=== PATIENT | male | born 1970 | race Caucasian/White ===

== ENCOUNTER 2017-03-19 15:07 | Inpatient (IN) ==
[~2017-03-19 15:07] MED LIST: Adenosine 90 MG/30 ML MLS IV ONE
[2017-03-19] MEDS ORDERED: *HR* Atropine Sulfate 1 MG/10 ML SYRINGE ONE (15:26)
[2017-03-19] MEDS ORDERED: Ondansetron 4 MG/2 ML VIAL IVP ONE (15:38)
[2017-03-19] MEDS ORDERED: 0.9 % Sodium Chloride 1,000 ML IVC ONE (15:40)
[2017-03-19] MEDS ORDERED: *HR* LORazepam 2 MG/ML VIAL ONE (15:42)
[2017-03-19] MEDS ORDERED: Albuterol 2.5 MG/3 ML NEBULIZER IH ONE (15:44)
[2017-03-19] MEDS ORDERED: *HR* Morphine 2 MG/ML SYRINGE ONE (15:45)
[2017-03-19] MEDS ORDERED: *HR* Morphine 10 MG/ML VIAL ONE (15:47)
[2017-03-19 16:02] LABS: Basophils % 0.4 %; Eosinophils % 0.3 %; Hematocrit 40.3 % (37.5-50.1); Hemoglobin 13.9 g/dL (12.9-16.9); Immature Granulocytes % 0.3 % (0-4); Lymphocytes # 1.8 K/mcL (0.6-4.6); Lymphocytes % 15.9 %; Mean Corpuscular HGB Conc 34.5 g/dL (31.6-35.5); Mean Corpuscular Hemoglobin 32.3 pg (28.0-33.3); Mean Corpuscular Volume 93.5 fL (83.0-100.0); Monocytes # 0.7 K/mcL (0.0-1.3); Monocytes % 6.2 %; Neutrophils # 8.6 K/mcL (1.6-8.9); Platelet Count 181 K/mcL (140-400); Red Blood Count 4.31 M/mcL (4.19-5.50); Red Cell Distribution Width 13.2 % (11.5-14.5); Segmented Neutrophils % 76.9 %
[2017-03-19 16:07] LABS: INR 1.1; Prothrombin Time 11.8 Seconds (9.4-12.1)
[2017-03-19 16:10] LABS: Activated Partial Thrombo Time 30.3 Seconds (26.0-36.0)
[2017-03-19] MEDS ORDERED: *HR* Atropine Sulfate 1 MG/10 ML SYRINGE IVP ONE ×2 (16:11→17:57)
--- NOTE | 2017-03-19 16:12 | Emergency Department Note ---
Disposition Clinical Impression: Third degree heart block, Symptomatic bradycardia Disposition: Admitted As Inpatient Condition: Critical Referrals: Anthony Armstrong MD [Primary Care Provider] - Time of Disposition: 18:55 General Adult HPI - General Chief complaint: ED Headache Stated complaint: n/v Time Seen by Provider: 03/19/17 15:38 Source: patient Limitations: no limitations Nursing Notes Reviewed: Yes Vital Signs Reviewed: Yes - History of Present Illness HPI Narrative: Mr. Lares, 46-year-old male, presents from home for evaluation of nausea, vomiting, left lower sternal chest pain. He has been retching multiple times since awakening this morning and now has bilateral bloodshot eyes. Patient notes it is hard to focus on anything in particular. No headache. PMH: Hypertension, hyperlipidemia, diabetes, prior MD with stent 1. 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 Pain Scale: 8 - Related Data Home Medications Medication Instructions Recorded Confirmed Aspirin Enteric Coated [Aspirin EC] 81 mg PO DAILY 03/19/17 03/19/17 Carvedilol 12.5 mg PO BID 03/19/17 03/19/17 Cholecalciferol (D-3) [Vitamin D] 1,000 unit PO DAILY 03/19/17 03/19/17 Isosorbide MONOnitrate (24 HR) 30 mg PO DAILY 03/19/17 03/19/17 [Imdur] Lisinopril [Zestril] 10 mg PO DAILY 03/19/17 03/19/17 Multivitamin [One Daily Essential] 1 each PO DAILY 03/19/17 03/19/17 Omeprazole [PriLOSEC] 20 mg PO BID 03/19/17 03/19/17 Rosuvastatin Calcium [Rosuvastatin 10 mg PO HS 03/19/17 03/19/17 Calcium] Sertraline [Zoloft] 50 mg PO DAILY 03/19/17 03/19/17 Sitagliptin Phos/Metformin HCl 1 tab PO DAILY 03/19/17 03/19/17 [Janumet Xr 100-1,000 mg Tablet] Allergies Allergy/AdvReac Type Severity Reaction Status Date / Time No Known Allergies Allergy Verified 03/19/17 15:20 All systems ED: reviewed and negative except as stated. Review of Systems: As Per HPI Past Medical History - Past Medical History Medical history: Reports: diabetes, myocardial infarction Psychiatric history: Reports: no psych history - Social History Smoking Status: Never smoker Smokeless Tobacco Status: No Alcohol use: Reports: none Drug use: Reports: none Physical Exam Vital Signs Reviewed General: Patient is alert, oriented, and in acute distress-he is having chest pain, his retching HEENT: No facial asymmetry. Head is normocephalic and atraumatic. Oral mucosa moist. Trachea midline. Bilateral scleral hemorrhage. Cardiovascular: Heart rate heart rate and regular rhythm without clicks, rubs, gallops, or murmurs. No JVD. PMI nondisplaced. Bilateral radial pulses 2/4 equal. Respiratory: Symmetric chest rise with good respiratory effort. Bilateral breath sounds are clear without wheezing, crackles, or rhonchi. Abdomen: Bowel sounds present normoactive x-4 quadrants. Abdomen is soft, nondistended, and nontender. Musculoskeletal: Spontaneously moving all extremities. Neuro: She has 15. Alert and oriented 4. Skin: Cool, moist, intact. Psych: Patient's affect is appropriate for situation. - General Limitations: no limitations General appearance: alert, in no apparent distress Course Course Narrative: Patient's nausea and vomiting with bilateral scleral hemorrhage initially concerning for possible subarachnoid hemorrhage. We will CT brain with and without. Patient presents with hypertension and symptomatic bradycardia. He was given half milligram of atropine with no improvement. His QRS on repeat EKGs was slowly widening. Initial suspicion prior to labwork of potential hyperkalemia. He was given 1 amp of bicarbonate, calcium gluconate, albuterol inhaler. Patient's rhythm remained in the low 30s. He was placed on transcutaneous pacing. After approximately 10 minutes, transcutaneous pacing removed the patient maintained in the mid 30s. Vital Signs Temperature 97.6 F 03/19/17 15:10 Pulse Rate 32 03/19/17 15:10 Respiratory Rate 18 03/19/17 15:10 Blood Pressure 186/50 03/19/17 15:10 O2 Sat by Pulse Oximetry 98 03/19/17 15:10 Temperature 97.6 F 03/19/17 15:10 Pulse Rate 50 03/19/17 18:49 Respiratory Rate 11 03/19/17 18:49 Blood Pressure 116/49 03/19/17 18:49 O2 Sat by Pulse Oximetry 97 03/19/17 18:49 Oxygen Delivery Oxygen Delivery Nasal Cannula Medical Decision Making - Lab Data Lab results reviewed: Yes I reviewed the patient's lab results. Result diagrams: 03/19/17 15:55 03/19/17 15:55 Lab Results 03/19/17 03/19/17 03/19/17 Range/Units 15:40 15:55 15:55 WBC 11.2 H (4.3-11.1) K/mcL RBC 4.31 (4.19-5.50) M/mcL Hgb 13.9 (12.9-16.9) g/dL Hct 40.3 (37.5-50.1) % MCV 93.5 (83.0-100.0) fL MCH 32.3 (28.0-33.3) pg MCHC 34.5 (31.6-35.5) g/dL RDW 13.2 (11.5-14.5) % Plt Count 181 (140-400) K/mcL MPV 11.0 (9.4-12.4) fL Immature Gran % 0.3 (0-4) % Seg Neutrophils % 76.9 % Lymphocytes % 15.9 % Monocytes % 6.2 % Eosinophils % 0.3 % Basophils % 0.4 % Neutrophils # 8.6 (1.6-8.9) K/mcL Lymphocytes # 1.8 (0.6-4.6) K/mcL Monocytes # 0.7 (0.0-1.3) K/mcL Eosinophils # 0.0 (0.0-0.6) K/mcL Basophils # 0.0 (0.0-0.2) K/mcL PT 11.8 (9.4-12.1) Seconds INR 1.1 APTT 30.3 (26.0-36.0) Seconds D-Dimer 628 H (0-500) ng/mLFEU Sodium (136-145) mEq/L Potassium (3.5-4.5) mEq/L Chloride (98-109) mEq/L Carbon Dioxide (19-29) mEq/L BUN (8-26) mg/dL Creatinine (0.72-1.25) mg/dL Est GFR ( Amer) (> 60) Est GFR (Non-Af Amer) (> 60) BUN/Creatinine Ratio (6-26) Glucose (70-99) mg/dL POC Glucose 123 H (58-89) Calculated Osmolality (280-300) Calcium (8.6-10.8) mg/dL Magnesium (1.6-2.6) mg/dL Troponin I (0-0.03) ng/mL 03/19/17 03/19/17 Range/Units 15:55 15:55 WBC (4.3-11.1) K/mcL RBC (4.19-5.50) M/mcL Hgb (12.9-16.9) g/dL Hct (37.5-50.1) % MCV (83.0-100.0) fL MCH (28.0-33.3) pg MCHC (31.6-35.5) g/dL RDW (11.5-14.5) % Plt Count (140-400) K/mcL MPV (9.4-12.4) fL Immature Gran % (0-4) % Seg Neutrophils % % Lymphocytes % % Monocytes % % Eosinophils % % Basophils % % Neutrophils # (1.6-8.9) K/mcL Lymphocytes # (0.6-4.6) K/mcL Monocytes # (0.0-1.3) K/mcL Eosinophils # (0.0-0.6) K/mcL Basophils # (0.0-0.2) K/mcL PT (9.4-12.1) Seconds INR APTT (26.0-36.0) Seconds D-Dimer (0-500) ng/mLFEU Sodium 134 L (136-145) mEq/L Potassium 4.3 (3.5-4.5) mEq/L Chloride 105 (98-109) mEq/L Carbon Dioxide 24 (19-29) mEq/L BUN 26 (8-26) mg/dL Creatinine 1.32 H (0.72-1.25) mg/dL Est GFR ( Amer) > 60 (> 60) Est GFR (Non-Af Amer) 58 L (> 60) BUN/Creatinine Ratio 20 (6-26) Glucose 140 H (70-99) mg/dL POC Glucose (58-89) Calculated Osmolality 285 (280-300) Calcium 11.2 H (8.6-10.8) mg/dL Magnesium 1.9 (1.6-2.6) mg/dL Troponin I 0.11 H* (0-0.03) ng/mL - EKG Data EKG #1 EKG attestation: Yes I reviewed and interpreted this EKG. EKG results narrative: EKG dated 19 March 2017 at 15:20 shows sinus bradycardia with a rate of 32. Prolonged SC interval. QRS 136. QT/QTC 545/420. T-wave inversion in leads V1 , V2, V4, V5 new from comparison EKG dated 05/15/2009. EKG #2 EKG attestation: Yes I reviewed and interpreted this EKG. EKG results narrative: EKG dated 19 March 2017 at 15:36 interpreted as sinus bradycardia with first- degree AV block. Rate of 37. SC interval 247. QRS 141, QT/QTC 5:30/447. QTc is longer than initial EKG 16 minutes prior. EKG #3 EKG attestation: Yes I reviewed and interpreted this EKG. EKG results narrative: EKG dated 19 March 2017 at 16:04 interpreted as sinus bradycardia with rate of 33. Left bundle-branch block now apparent which was present on comparison EKG dated 05/15/2009. QRS 145, QT/QTC 541/432. QTC is improving from EKG 28 minutes prior.
[2017-03-19 16:14] LABS: BUN/Creatinine Ratio 20 (6-26); Blood Urea Nitrogen 26 mg/dL (8-26); Calcium 11.2 mg/dL (8.6-10.8); Carbon Dioxide 24 mEq/L (19-29); Chloride 105 mEq/L (98-109); Glucose 140 mg/dL (70-99); Magnesium 1.9 mg/dL (1.6-2.6); Osmolality,Calculated 285 (280-300); Potassium 4.3 mEq/L (3.5-4.5); Sodium 134 mEq/L (136-145); eGFR For African Americans > 60 (> 60); eGFR For Non-African Americans 58 (> 60)
[2017-03-19] MEDS ORDERED: FentaNYL (PF) 1,000 MCG in 0.9 % Sodium Chloride 80 ML IVC SCH (16:15)
[2017-03-19] MEDS ORDERED: 0.9 % Sodium Chloride 1,000 ML ONE ×3 (16:20→19:20)
--- NOTE | 2017-03-19 16:33 | Emergency Department Note ---
START Narrative - START START: I examined this patient and my medical decision-making was reviewed with the Resident Physician. I agree with the documented findings, disposition and treatment plan as described except to the extent set forth below. 46 year odl male presents to the ED with complaints of lightheadedness and states that today he had a intense episode of retching and vomitting and thus resulted in an epsideo where he had a syncopal episode and wokeup with scleral hemmorhages and a headache behind his eyes and occiput area in addition to increased midsternal chest pressure and has a history of elevated blood pressure tday that was >200 systlolc today but it has normalized. Valerie denies neck pain or fevers today. He appears diaphoretic and initial EKG he is bradycardiac to the 30s and it appears he has a QT prolongation secondary to his history as a diabetic and te QT prolongation possibly hyperK we will do calcium chloride therapy. Valerie began to vomit profusely, and he had a HR of 21, I have decided to trancutanously pace patient at that time and gave him a total of 1g atropine. Patient was sedated with aitvan and morphone ininally. He was paced at 50bpm. Valerie has relaxed and does not appear patrick cute distress currently, we will turn off trans cutanous pacing and he is currenlty 33 bpm. WE will continue workup for hypertensive emergency with CTA chest, head. He currently also has a troponin of .11. We will consult [facility] cardiology and admit to medicine today.
[2017-03-19] MEDS ORDERED: *HR* Midazolam HCl 2 MG/2 ML VIAL ONE (16:39)
[2017-03-19] MEDS ORDERED: *HR* Heparin 10,000 UNIT/10 ML VIAL ONE (19:20)
[2017-03-19] MEDS ORDERED: *HR* Midazolam HCl 5 MG/5 ML VIAL IVP ONE (19:27)
[2017-03-19] MEDS ORDERED: *HR* FentaNYL (PF) 250 MCG/5 ML VIAL ONE (19:28)
[2017-03-19] MEDS ORDERED: *HR* Bivalirudin 250 MG VIAL IVC ONE (20:11)
[2017-03-19] MEDS ORDERED: Nitroglycerin 0.4 MG TAB.SUBL SL PRN (21:01)
[2017-03-19] MEDS ORDERED: Ondansetron 4 MG/2 ML VIAL IVP PRN (21:01)
--- NOTE | 2017-03-19 21:06 | Invasive Diagnostic Lab Proc ---
Name: Milan Lares Date of Study: 03/19/2017 Date: 1970 Ht: 68.1in Medical Record#: [id number] Age: 46 Wt: 209.44lb Gender: Male BSA: 2.09 Order #: [id number] BMI: 31.74 Physicians Procedure Physician: Bhavna De Jesus MD, [facility] Referring MD: Anthony Armstrong MD Referring MD: Staff Name Position Time In Bev Scott RT (R) Scrub 07:35 PM Saud Mart RN Traffic Control Technician 07:38 PM Yudy Almonte RN Monitor 07:38 PM Indications Indication Symptomatic bradycardia Non-Stemi CHB Procedures Performed Procedure INS/RPL TEMP PM LEAD/CATH;SNGL L HRT ARTERY/VENTRICLE ANGIO Pre-Procedure Checklist Informed consent is complete signed and on chart. H&P is on chart. ID band is on and ID verified with patient. Pt not NPO for procedure and MD aware. The procedure was described for the patient and questions were answered. Blood Pressure: 135/52 ECG is on chart. Rhythm: temp V paced Plan of Care Patient will tolerate the procedure without complications. Adequate level of comfort will be maintained. Hemodynamics will remain stable Patient will recover from procedure without complications. Respiratory function will be maintained. Cardiac rhythm will remain stable. Patient temperature will be maintained. Patient and/or family have verbalized understanding of the procedure. Patient Education Intravenous Access Time IV Size Location DC'd Fluid/Drip Rate Units RN 07:18 PM 18g 1 1/4" Patent On Arrival Rt Antecubital 0.9NaCl 25 ml/hr Saud Mart RN Allergies NO KNOWN DRUG ALLERGIES Vital Signs Time BP (mmHg) HR (bpm) O2 Sat. RR (bpm) LOC 07:18 PM 135 / 52 50 97 % 18 5 = Fully awake and oriented or at pre-proc level 07:40 PM / % 5 = Fully awake and oriented or at pre-proc level 07:40 PM / % 5 = Fully awake and oriented or at pre-proc level 07:56 PM / % 5 = Fully awake and oriented or at pre-proc level 08:12 PM / % 5 = Fully awake and oriented or at pre-proc level 07:39 PM 99 / 80 80 90 % 20 07:40 PM 150 / 64 30 91 % 20 07:44 PM 128 / 71 80 98 % 17 07:49 PM 138 / 63 79 98 % 19 07:54 PM 129 / 62 80 99 % 13 07:59 PM 112 / 57 79 98 % 22 08:04 PM 117 / 51 96 96 % 18 08:09 PM 109 / 51 80 97 % 15 08:14 PM 106 / 54 79 96 % 17 08:15 PM 103 / 45 80 94 % 14 07:34 PM 160 / 94 % 08:19 PM 106 / 51 80 96 % 20 08:22 PM 111 / 49 81 96 % 18 08:23 PM 91 / 44 81 97 % 18 08:25 PM 95 / 46 80 98 % 20 08:29 PM 106 / 50 80 93 % 21 08:34 PM 111 / 52 80 94 % 20 Procedural Medications Time Medication Dose Units Method Given By 07:38 PM Oxygen 6 L/min nasal cannula Saud Mart RN 07:38 PM Lidocaine 2% 14 ml Subcutaneous Bhavna De Jesus MD, FACC 07:56 PM Lidocaine 2% 16 ml Subcutaneous Bhavna De Jesus MD, FACC 08:00 PM Oxygen 4 L/min nasal cannula Saud Mart RN 08:13 PM Angiomax 0.75mg/kg bolus: 14 ml Intravenous Saud Mart RN 08:14 PM Angiomax 1.75mg/kg/hr: 33 ml Intravenous Saud Mart RN 08:19 PM Adenosine 150 mcg/kg/min Intravenous Saud Mart RN 08:23 PM Angiomax 0.75mg/kg bolus: 0 ml Intravenous Saud Mart RN 07:36 PM Versed 1 mg Intravenous Saud Mart RN 07:36 PM Fentanyl 25 mcg Intravenous Saud Mart RN ASA Classification: CLASS III- Severe systemic disease (i.e. prior AMI, diabetes with vascular complications, morbid obesity) Emergent Procedure: ASA score is assumed Madison Score Preprocedure Postprocedure Activity 2- Moves 4 extremities sustained head lift Activity 2- Moves 4 extremities sustained head lift Circulation 2- SBP +/= 20 points of pre-anesthetic level Circulation 2- SBP +/= 20 points of pre-anesthetic level Consciousness 2- Awake and alert oriented x 3 Consciousness 2- Awake and alert oriented x 3 O2 Saturation 1- Needs O2 inhalation to maintain O2 saturation of 90% O2 Saturation 2- Able to maintain O2 satruation of 92% on room air Respiratory 2- Able to deep breathe and cough well Respiratory 2- Able to deep breathe and cough well Total Score 9 Total Score 10 Contrast Agent: Isovue Diagnostic Contrast: 107 ml Total Contrast: 107 ml Fluoro Dose: 412 mGy Procedure Log Time Note Enter By 07:23 PM CathStat 07:33 PM Case Start 07:33 PM Vitals capture started with the following parameters, Patient=Adult, Interval=5 min, Initial Epfffhqt=560 mmHg, Deflation Rate=5 mmHg, Cuff placed on Right Arm 07:34 PM ZDTQ=180/94 mmhg, Comment=Vpaced 07:35 PM Pt arrived to slabber 2 at 19:35 csmith 07:35 PM Bev Scott (R) Position: Scrub Time in: 19:35 csmith 07:35 PM Patient charges- Angio tray pack, Navilyst 3mm J, Pulse Oximetry and ACIST tubing and transducer csmith 07:36 PM Time: 19:36 Versedl 1 mg Intravenous Given by Saud Mart RN csmith 07:36 PM Time: 19:36 Fentanyl 25 mcg Intravenous Given by Saud Mart RN csmith 07:37 PM Hair removed from procedure site in procedure lab using clippers. Bilateral groin prepped with Chloraprep by Bev Scott RT (R), safety strap applied then patient was draped. Skin intact. csmith 07:38 PM Case Delayed No csmith 07:38 PM Saud Mart RN Position: Traffic Control Technician Time in: 19:38 csmith 07:38 PM Yudy Almonte RN Position: Monitor Time in: 19:38 csmith 07:38 PM ASA Class CLASS III- Severe systemic disease (i.e. prior AMI, diabetes with vascular complications, morbid obesity) csmith 07:38 PM Meet and greet completed csmith 07:38 PM Sign in performed according to hospital policy. csmith 07:38 PM Procedure start 19:38 csmith 07:38 PM Time: 19:38 Oxygen on at 6 L/min per nasal cannula by Saud Mart RN csmith 07:38 PM Time out performed according to hospital policy csmith 07:38 PM Time: 19:38 14 ml Lidocaine 2% to right groin Subcutaneous Given by Bhavna De Jesus MD, [facility] csmith 07:39 PM HR=80 bpm, NIBP=99/80 mmhg, SpO2=90.0 %, Resp=20 B/min, Comment=Vpaced 07:39 PM NIBP STAT measurement started. 07:40 PM Time: 19:40 Patient comfortable and pain free: Yes csmith 07:40 PM Time: 19:40LOC: 5 = Fully awake and oriented or at pre-proc level csmith 07:40 PM HR=30 bpm, XXHZ=799/64 mmhg, SpO2=91.0 %, Resp=28 B/min, Comment=Vpaced 07:41 PM Access obtained by percutaneous puncture. 6Fr 11cm Cordis Goldie sheath placed in right Femoral vein. [id number] csmith 07:42 PM PstProc: Temp pacer on. csmith 07:42 PM PstProc:Bard Bipolar Pacing Catheter Temp pacer inserted into right femoral vein csmith 07:43 PM Recorded Pressure: Ao, HR=80, Condition=Condition 1 (Aorta) Ao -49/-49/-49 07:43 PM thresholds being checked csmith 07:44 PM HR=80 bpm, UUNY=182/71 mmhg, SpO2=98.0 %, Resp=17 B/min, Comment=Vpaced 07:44 PM PstProc: Temp pacer turned on, rate 80 ppm, mA 4, sensitivity 2 csmith 07:44 PM PstProc: Sheath(s) sutured in due to Temporary Pacer. csmith 07:49 PM HR=79 bpm, KUOS=611/63 mmhg, SpO2=98.0 %, Resp=19 B/min, Comment=Vpaced 07:54 PM HR=80 bpm, ASSX=637/62 mmhg, SpO2=99.0 %, Resp=13 B/min, Comment=Vpaced 07:56 PM Time: 19:40LOC: 5 = Fully awake and oriented or at pre-proc level csmith 07:56 PM Time: 19:40 Patient comfortable and pain free: Yes csmith 07:56 PM Time: 19:56 16 ml Lidocaine 2% to right groin Subcutaneous Given by Bhavna De Jesus MD, [facility] csmith 07:57 PM Access obtained by percutaneous puncture. 5Fr 10cm Terumo Borden sheath placed in right Femoral artery. [id number] csmith 07:57 PM 5Fr FL 4 catheter inserted over the wire [facility] csmith 07:58 PM Pressure channel 1 zeroed. 07:59 PM HR=79 bpm, OEED=866/57 mmhg, SpO2=98.0 %, Resp=22 B/min, Comment=Vpaced 07:59 PM Recorded Pressure: Ao, HR=80, Condition=Condition 1 (Aorta) Ao 84/53/65 07:59 PM LCA angiography performed in multiple views. csmith 08:00 PM Time: 20:00 Oxygen on at 4 L/min per nasal cannula by Saud Mart RN csmith 08:01 PM [facility] PM [facility] FR [facility] RCA angiography performed in [place]. csmith 08:03 PM Catheter removed [facility] 08:03 PM Coronary Dominance: Left [facility] 08[facility] PM 5Fr Pigtail catheter [facility] the [facility] PM Catheter selectively placed in left ventricle csmith 08:03 PM Bolus angiogram of left Ventricle complete: 8 ml/sec for a total of 24 mls [facility] 08[facility] PM Pressure channel 1 zeroed. 08:04 PM Recorded Pressure: LV, HR=86, Condition=Condition 1 (Left Ventricle) LV 84/14/24 08:04 PM Recorded Pressure: LV, HR=82, Condition=Condition 1 (Left Ventricle) LV 85/12/15 08:04 PM HR=96 bpm, RZCO=998/51 mmhg, SpO2=96.0 %, Resp=18 B/min, Comment=Vpaced 08:04 PM Recorded Pressure: LV, Ao, HR=80, Condition=Condition 1 (Left Ventricle) LV 93/26/34, (Aorta) Ao 86/51/68 08:04 PM Catheter removed csmith 08:09 PM HR=80 bpm, LZBN=876/51 mmhg, SpO2=97.0 %, Resp=15 B/min, Comment=Vpaced 08:12 PM Time: 19:56 Patient comfortable and pain free: Yes [facility] 08:12 PM Time: 19:56LOC: 5 = Fully awake and oriented or at pre-proc level csmith 08:13 PM Sheath exchanged for a 6 Fr 11 cm Cordis Goldie sheath [id number] [facility] 08[facility]13 PM 6Fr XB LAD 3.5 [place] Bright-Tip guide catheter was used to cannulate the PCI vessel successfully. reused? No [facility] 08:14 PM Time: 20:13 Angiomax 0.75mg/kg bolus: 14 ml Intravenous Given by Saud Mart RN Hall pump csmith 08:14 PM Time: 20:14 Angiomax 1.75mg/kg/hr: 33 ml Intravenous Given by Saud Mart RN Hall pump csmith 08:14 PM HR=79 bpm, XNEV=886/54 mmhg, SpO2=96.0 %, Resp=17 B/min, Comment=Vpaced 08:14 PM Recorded Pressure: Ao, HR=71, Condition=Condition 1 (Aorta) Ao 74/41/55 08:14 PM NIBP STAT measurement started. 08:15 PM .014 Prowater 180cm guide wire across target lesion- successful. reused? No csmith 08:15 PM HR=80 bpm, EWFS=796/45 mmhg, SpO2=94.0 %, Resp=14 B/min, Comment=Vpaced 08:17 PM Acist Navvus FFR wire advanced to target lesion. csmith 08:19 PM HR=80 bpm, ZVBN=277/51 mmhg, SpO2=96.0 %, Resp=33 B/min, Comment=Vpaced 08:20 PM Time: 20:20 Adenosine 150 mcg/kg/min Intravenous Given by Saud Mart RN Hall pump csmith 08:21 PM NIBP STAT measurement started. 08:22 PM HR=81 bpm, AVVR=030/49 mmhg, SpO2=96.0 %, Resp=18 B/min, Comment=Vpaced 08:22 PM NIBP STAT measurement started. 08:23 PM HR=81 bpm, NIBP=91/44 mmhg, SpO2=97 %, Resp=18 B/min 08:23 PM Time: 20:23 Angiomax 0.75mg/kg bolus: off ml Intravenous Given by Saud Mart RN Hall pump csmith 08:23 PM Flow Wire removed intact csmith 08:24 PM FFR Measurement: 0.82 csmith 08:24 PM Guide wire removed intact. csmith 08:24 PM Guide catheter removed intact. csmith 08:24 PM Bolus angiogram of right Femoral complete: 2 ml/sec for a total of 4 mls csmith 08:25 PM Procedure completed at 20:25 csmith 08:25 PM HR=80 bpm, NIBP=95/46 mmhg, SpO2=98 %, Resp=25 B/min 08:26 PM Sign out completed: Radiation Dose 411.84 mGy Fluoro Time: 4.7 Isovue 370 - 200ml contrast 107 ml given by Bhavna De Jesus MD, [facility]. Complications: NoneCardiac Rehab Consult needed: NoConfirmed administered medications: Yes csmith 08:26 PM Isovue 370 - 200ml,1 Bottle(s) used. csmith 08:26 PM Arterial sheath pulled, Mynx closure device used and was Successful S/N. csmith 08:27 PM Estimated Blood Loss: minimal csmith 08:27 PM Time: 20:12LOC: 5 = Fully awake and oriented or at pre-proc level csmith 08:27 PM Time: 20:12 Patient comfortable and pain free: Yes csmith 08:27 PM Post ECG Paced csmith 08:27 PM Post Blood Pressure 95/46 csmith 08:27 PM 20:27 Post Pulses Bilateral DP & PT 2+ csmith 08:27 PM Information taught Cardiac Cath and Temporary pacemaker csmith 08:29 PM HR=80 bpm, GAFJ=814/50 mmhg, SpO2=93 %, Resp=21 B/min 08:33 PM Education needs Plan of Care, Disease Process, and Responsibilities of Patient in Care csmith 08:34 PM Learning barriers :None csmith 08:34 PM Education Methods Verbal csmith 08:34 PM Education evaluation Able to repeat information csmith 08:34 PM Site status No bleeding/hematoma - Rt Groin as reported by Bev Scott RT (R) at 20:34 csmith 08:34 PM Opsite applied csmith 08:34 PM HR=80 bpm, QGPH=407/52 mmhg, SpO2=94 %, Resp=20 B/min 08:34 PM Plavix, Effient or Brilinta given No csmith 08:35 PM Lesion found in Proximal LAD. Pre Stenosis: 50 csmith 08:35 PM Lesion found in Proximal RCA. Pre Stenosis: 25 csmith 08:36 PM Lesion found in Proximal Circumflex. Pre Stenosis: 20 csmith 08:36 PM Lesion found in Distal Circumflex. Pre Stenosis: 25 csmith 08:36 PM Proximal Left Anterior Descending Coronary Artery with 50% stenosis. csmith 08:37 PM Lesion found in Ramus. Pre Stenosis: 60 csmith 08:37 PM Mid/Distal Left Anterior Descending Coronary Artery and diagonal branches with 25% stenosis. csmith 08:38 PM Right Coronary, Right Posterior Descending Arteries with Right Posterolateral and Acute Marginal branches with 25 % stenosis. csmith 08:38 PM Ramus with 60% stenosis. csmith 08:40 PM Leach catheter 16Fr was inserted using sterile technique per Florence Cowan RN ejohnson 08:54 PM Report given to Wally GUZMAN Pt taken to E Room #4. 20:50 ejohnson 08:54 PM Delay to floor No ejohnson 08:55 PM Patient out of room: 20:54 ejohnson 08:55 PM Complications: None ejohnson Complications Complication None Hemodynamics Pressures Site Systolic/A Wave Diastolic/V Wave Mean AO -49 -49 -49 AO 84 53 65 LV 84 14 24 LV 85 12 15 LV 93 26 34 AO 86 51 68 AO 74 41 55 Post Procedure Information Blood Pressure: 95/46 mmHg Rhythm: Paced Post procedural instructions were given Closure Device Time Device Success/Fail 03/19/2017 8:27:00 PM MynxGrip Successful Site Checks Time Location Status Staff Sheath In? Note 08:34 PM Rt Groin No bleeding/hematoma Bev Scott RT (R) Pulses Time Site Pre-Procedure Post-Procedure Note 8:27:00 PM Bilateral DP & PT 2+ 03/19/2017 7:35:00 PM Bilateral DP & PT 2+ Updated by Yudy Almonte RN on 03/19/2017 8:59:30 PM Yudy Almonte RN electronically signed on 03/19/2017 9:00:29 PM with status of Final
[2017-03-19] MEDS ORDERED: *HR* Dextrose 50 % in Water (Syg) 50 ML SYRINGE IVP PRN (21:09)
[2017-03-19] MEDS ORDERED: Dextrose Gel 15 GM PO PRN ×2 (21:09)
[2017-03-19] MEDS ORDERED: D5% in Water 1,000 ML IVC PRN (21:09)
[2017-03-19] MEDS ORDERED: 0.9 % Sodium Chloride 1,000 ML IVC SCH (21:15)
--- NOTE | 2017-03-19 21:22 | Cardiology History & Physical ---
Date of Encounter: 03/19/17 Time of Encounter: 19:30 Assessment and Plan (1) Complete heart block Current Visit: Yes Status: Acute Pt is in complete heart block currently being transcutaneously paced. Will proceed with emergent temp pacer as well as probable LHC to evaluate for etiology of symptoms of n/v, complete heart block. Further recommendations pending results. Likely will need BiV pacemaker +/- ICD pending echo for EF evaluation. The assessment and plan as outlined above was discussed with the patient and/or family members who expressed understanding and agreement. All questions were answered. (2) Coronary artery disease Current Visit: Yes Status: Acute Slight troponin elevation which may be due to markedly elevated BP as well as CHB. Will likely proceed with LHC after stabilizing with temp pacer. The assessment and plan as outlined above was discussed with the patient and/or family members who expressed understanding and agreement. All questions were answered. Qualifiers: Coronary Disease-Associated Artery/Lesion type: [place] artery [place] vs. transplanted heart: [place] heart Associated angina: with unspecified angina Qualified Code(s): I25.119 - Atherosclerotic heart disease of [place] coronary artery with unspecified angina pectoris (3) History of coronary artery stent placement Current Visit: No Status: Chronic The assessment and plan as outlined above was discussed with the patient and/or family members who expressed understanding and agreement. All questions were answered. (4) Diabetes mellitus Current Visit: No Status: Chronic The assessment and plan as outlined above was discussed with the patient and/or family members who expressed understanding and agreement. All questions were answered. Qualifiers: Diabetes mellitus type: type 2 Diabetes mellitus complication status: with unspecified complications Diabetes mellitus adjunct faculty for medical terminology insulin use: without adjunct faculty for medical terminology use Qualified Code(s): E11.8 - Type 2 diabetes mellitus with unspecified complications (5) Hypertension Current Visit: Yes Status: Chronic The assessment and plan as outlined above was discussed with the patient and/or family members who expressed understanding and agreement. All questions were answered. Qualifiers: Hypertension type: essential hypertension Qualified Code(s): I10 - Essential (primary) hypertension History of Present Illness Chief complaint: n/v HPI: Mr. Lares is a 46 year old male with hx of CAD s/p PCI, DM, HTN presents to [facility] ED for evaluation of n/v, headache. Pt unable to provide history due to current clinical status. History obtained from as well as prior records. Per , pt had some mild GRACE yesterday when climbing stairs from basement, but otherwise felt well. This AM, per , when pt awoke, felt nauseated, flushed, general malaise. She left house for a few hours to go to a [employer] activity. When she returned, pt c/o severe n/v, headache. Had scleral hemorrhages. No syncope. Pt taken to [facility] ED for further evaluation. Upon arrival, pt's EKG demonstrated complete heart block with HR in 30s. Was given atropine without improvement. Pt transcutaneously paced. Head CT negative. CTA chest negative for PE. Pt has known history of CAD. Had RI in 2008 with PCI of LAD at [facility]. Per , had ischemic CMP at that time and ICD was discussed with patient. EF improved, however, and no need for ICD. No records available for my review. Most recent echocardiogram in 2016 with normal EF 55%, no significant valvular heart disease. Past Med Surg Social Fam HX - Past Medical History Medical history: coronary artery disease, diabetes, hyperlipidemia, hypertension , myocardial infarction Psychiatric history: no psych history - Past Surgical History Surgical History: angioplasty/stent - Social History Smoking Status: Never smoker Smokeless Tobacco Status: No Alcohol use: none Drug use: none Medications and Allergies Aspirin Enteric Coated [Aspirin EC] 81 mg PO DAILY 03/19/17 [History] Carvedilol 12.5 mg PO BID 03/19/17 [History] Cholecalciferol (D-3) [Vitamin D] 1,000 unit PO DAILY 03/19/17 [History] Isosorbide MONOnitrate (24 HR) [Imdur] 30 mg PO DAILY 03/19/17 [History] Lisinopril [Zestril] 10 mg PO DAILY 03/19/17 [History] Multivitamin [One Daily Essential] 1 each PO DAILY 03/19/17 [History] Omeprazole [PriLOSEC] 20 mg PO BID 03/19/17 [History] Rosuvastatin Calcium [Rosuvastatin Calcium] 10 mg PO HS 03/19/17 [History] Sertraline [Zoloft] 50 mg PO DAILY 03/19/17 [History] Sitagliptin Phos/Metformin HCl [Janumet Xr 100-1,000 mg Tablet] 1 tab PO DAILY 03/19/17 [History] 3 Allergy/AdvReac Type Severity Reaction Status Date / Time No Known Allergies Allergy Verified 03/19/17 15:20 ROS unobtainable: other (currently sedated) All Systems Review: A 10-system review of systems was performed and is negative for pertinent findings except as documented above in the HPI. Physical Examination General: Other (moderately severe distress, nauseated, drowsy, currently being transcutaneously paced) HEENT: Atraumatic, Normocephaly, Mucus Membranes Moist, Other (b/l scleral hemorrhages) Neck: No JVD, Normal carotid pulses Cardiac: Normal S1 and S2, No Murmur, Other (bradycardic) Lungs: Normal Breath Sounds, No Wheeze, Rales, Rhonchi Neuro: Other (sedated, drowsy, falls asleep when trying to answer questions) Abdomen: Soft, Non-Tender Skin: No rashes noted on visualized skin Musculoskeletal: No Chest Wall Tenderness Extremities: No Clubbing, No Cyanosis, No Edema, Normal Pulses Results 03/19/17 15:55 03/19/17 15:55 - EKG Interpretation EKG results cardiology: personally reviewed (complete heart block with ventricular escape rate of 37bpm)
[2017-03-20 04:26] LABS: Basophils % 0.3 %; Eosinophils # 0.1 K/mcL (0.0-0.6); Eosinophils % 0.6 %; Hematocrit 36.7 % (37.5-50.1); Immature Granulocytes % 0.3 % (0-4); Lymphocytes # 1.6 K/mcL (0.6-4.6); Lymphocytes % 16.7 %; Mean Corpuscular HGB Conc 33.2 g/dL (31.6-35.5); Mean Corpuscular Volume 96.3 fL (83.0-100.0); Monocytes # 0.6 K/mcL (0.0-1.3); Monocytes % 6.7 %; Neutrophils # 7.2 K/mcL (1.6-8.9); Platelet Count 136 K/mcL (140-400); Red Blood Count 3.81 M/mcL (4.19-5.50); Red Cell Distribution Width 13.8 % (11.5-14.5); Segmented Neutrophils % 75.4 %
[2017-03-20 04:27] LABS: Hemoglobin 12.2 g/dL (12.9-16.9)
[2017-03-20 04:39] LABS: BUN/Creatinine Ratio 17 (6-26); Blood Urea Nitrogen 19 mg/dL (8-26); Carbon Dioxide 19 mEq/L (19-29); Chloride 114 mEq/L (98-109); Chol/HDL Ratio 3.4 (0-4.9); Cholesterol 126 mg/dL (< 200); Glucose 87 mg/dL (70-99); HDL Cholesterol 37 mg/dL (40-59); LDL Cholesterol,Calculated 73 mg/dL (0-99); Osmolality,Calculated 296 (280-300); Potassium 4.6 mEq/L (3.5-4.5); Triglycerides 80 mg/dL (< 150); eGFR For African Americans > 60 (> 60); eGFR For Non-African Americans > 60 (> 60)
[2017-03-20 04:43] LABS: Calcium 8.5 mg/dL (8.6-10.8); Sodium 142 mEq/L (136-145)
[2017-03-20] MEDS ORDERED: Ondansetron 4 MG/2 ML VIAL IVP ONE (08:59)
[2017-03-20] MEDS ORDERED: Aspirin Enteric Coated 81 MG Tablet PO SCH (09:00)
[2017-03-20] MEDS: *HR* Enoxaparin 40 MG/0.4 ML SYRINGE SQ SCH (09:33)
--- NOTE | 2017-03-20 10:19 | Cardiology Progress Note ---
Date of Encounter: 03/20/17 Time of Encounter: 08:00 Assessment and Plan (1) Third degree heart block Current Visit: Yes Status: Acute Presented in CHB. S/p emergent TV pacer. Hold AV diana blockers. LHC showed patent stent. EF normal. TTE pending. Possible PPM tomorrow. Will place EP consult. (2) Coronary artery disease Current Visit: Yes Status: Acute Slight troponin elevation which may be due to markedly elevated BP as well as CHB. LHC showed patent LAD stent. Moderate non-obstructive CAD. S/p PCI in 2008. Continue medical management with asa and statin. No AV diana blockers due to CHB. No indication for cardiac rehab at this time. Qualifiers: Coronary Disease-Associated Artery/Lesion type: [place] artery [place] vs. transplanted heart: [place] heart Associated angina: with unspecified angina Qualified Code(s): I25.119 - Atherosclerotic heart disease of [place] coronary artery with unspecified angina pectoris (3) Diabetes mellitus Current Visit: No Status: Chronic The assessment and plan as outlined above was discussed with the patient and/or family members who expressed understanding and agreement. All questions were answered. Continue home meds. SSI. Qualifiers: Diabetes mellitus type: type 2 Diabetes mellitus complication status: with unspecified complications Diabetes mellitus senior care insulin use: without senior care use Qualified Code(s): E11.8 - Type 2 diabetes mellitus with unspecified complications (4) Hypertension Current Visit: Yes Status: Chronic The assessment and plan as outlined above was discussed with the patient and/or family members who expressed understanding and agreement. All questions were answered. B/p now acceptable despite stopping carvedilol. Avoid AV diana blockers add medication as needed. Qualifiers: Hypertension type: essential hypertension Qualified Code(s): I10 - Essential (primary) hypertension (5) Nausea Current Visit: Yes Status: Acute Continues to have nausea despite paced rhythm and better blood pressure. Liver panel is ok. Normal amylase and lipase. Denies fevers or abdominal pain. Will continue to monitor. Continue zofran. Will consult hospitalist to help manage and for further recs for work-up. Discussion w patient/family: The assessment and plan as outlined above was discussed with the patient and/or family members who expressed understanding and agreement. All questions were answered. Thank you for involving us in the care of your patient. Please call with any questions. Subjective Principal diagnosis: complete heart block, nausea and vomiting. Interval history: Mr. Lares is s/p temporary TV pacer. He is currently paced on telemetry. Patient continues to experience nausea and vomiting of mucous and bile colored vomit. Any movement triggers nausea. Denies abdominal pain. Denies fever. Objective Vital Signs, Last 4 Hours Temp Pulse Resp BP Pulse Ox 03/20/17 09:00 80 20 134/70 94 03/20/17 08:10 80 03/20/17 08:00 80 18 143/62 92 03/20/17 07:58 94 03/20/17 07:26 97.8 F 03/20/17 07:00 80 18 124/62 93 General: Conversant, No Apparent Distress HEENT: Atraumatic, Normocephaly, Mucus Membranes Moist Neck: No JVD, Normal carotid pulses Cardiac: Reg Rate and Rhythm, Normal S1 and S2, No Murmur Lungs: Normal Breath Sounds, No Wheeze, Rales, Rhonchi Neuro: Alert and responsive, No focal deficits noted Abdomen: Soft, Non-Tender Skin: No rashes noted on visualized skin Musculoskeletal: No Chest Wall Tenderness Extremities: No Clubbing, No Cyanosis, No Edema, Normal Pulses, Other (TV pacer intact with clean dry dressing. ) Results 03/20/17 04:10 03/20/17 04:10 Lab Results 03/20/17 03/20/17 03/20/17 04:10 04:10 04:10 WBC 9.6 Hgb 12.2 L D Hct 36.7 L Plt Count 136 L Sodium 142 D Potassium 4.6 H Chloride 114 H Carbon Dioxide 19 BUN 19 Creatinine 1.10 Glucose 87 Calcium 8.5 L D Troponin I 0.26 H* Consult Discharge Plan - Plan Referrals: Anthony Armstrong MD [Primary Care Provider] -
[2017-03-20 10:27] LABS: Amylase 74 Units/L (25-125); Lipase 31 Units/L (8-78)
[2017-03-20 10:28] LABS: Albumin 3.3 g/dL (3.5-5.0); Bilirubin,Direct 0.4 mg/dL (0.0-0.5); Bilirubin,Indirect 0.5 mg/dL (0.0-1.2); Bilirubin,Total 0.9 mg/dL (0.2-1.2); Globulin 3.3 g/dL (2.4-3.5); Total Protein 6.6 g/dL (6.0-8.3)
[2017-03-20] MEDS: Insulin LISPRO 300 UNITS/3 ML VIAL SQ SCH ×3 (11:17→16:17)
[2017-03-20] MEDS: Multivit/Ca/Min/Fe/FA 1 TAB TABLET PO SCH (12:56)
[2017-03-20] MEDS: Cholecalciferol (D-3) 1,000 UNIT TABLET PO SCH (12:56)
--- NOTE | 2017-03-20 13:55 | Internal Medicine Consult Note ---
<Neo Simon - Last Filed: 03/20/17 14:14> Date of Encounter: 03/20/17 Time of Encounter: 13:55 - Assessment and Plan (1) Nausea & vomiting Current Visit: Yes Status: Acute Assessment and plan: The patient continued to have cyclical intractable nausea and vomiting. We recommend Zofran every 4 hours as needed intravenously CT scan abdomen ,chest abdomen with contrast. Qualifiers: Vomiting type: cyclical vomiting Vomiting Intractability: intractable Qualified Code(s): G43.A1 - Cyclical vomiting, intractable Internal Medicine - CN: HPI - Data of Consult Consult date: 03/20/17 Requesting Physician: Bhavna De Jesus - Consult Narrative Reason for consult: Intractable nausea, vomiting History of present illness: Mr. Lares is a 46 year old male Patient was admitted for episode of bradycardia chest pain, headache with some nausea and vomiting. He was seen by cardiology for third degree heart block on EKG with 60% LVEF of Echo. pacer was placed by cardiology . His nausea and vomiting continued for which the hospitalist group was consulted . Patient was seen and examined for intractable nausea and vomiting. Past Med Surg Social Fam HX - Past Medical History Medical history: coronary artery disease, diabetes, hyperlipidemia, hypertension , myocardial infarction Psychiatric history: no psych history - Past Surgical History Surgical History: angioplasty/stent - Social History Smoking Status: Never smoker Smokeless Tobacco Status: No Alcohol use: none Drug use: none - Cardiovascular Cardiovascular ROS IM: irregular heart rhythm, lightheadedness, syncope, no chest pain, no claudication, no diaphoresis, no dyspnea, no edema, no orthopnea , no palpitations, no paroxysmal nocturnal dyspnea - Respiratory Respiratory: excessive phlegm production, no cough, no dyspnea, no dyspnea on exertion, no wheezing, no snoring, no stridor, no pain on inspiration, no chest congestion, no change in phlegm color, no pain with cough - Gastrointestinal Gastrointestinal: belching, constipation, heartburn, nausea, vomiting, no bloating, no change in bowel habits, no change in stool character, no coffee ground emesis, no cramping, no diarrhea, no dyspepsia, no dysphagia, no early satiety, no excessive flatus, no fecal incontinence, no hematemesis, no hematochezia, no loose stools, no melena, no odynophagia, no tenesmus - Genitourinary Genitourinary ROS male: hematuria Internal Medicine - CN: Meds Aspirin Enteric Coated [Aspirin EC] 81 mg PO DAILY 03/19/17 [History] Carvedilol 12.5 mg PO BID 03/19/17 [History] Cholecalciferol (D-3) [Vitamin D] 1,000 unit PO DAILY 03/19/17 [History] Isosorbide MONOnitrate (24 HR) [Imdur] 30 mg PO DAILY 03/19/17 [History] Lisinopril [Zestril] 10 mg PO DAILY 03/19/17 [History] Multivitamin [One Daily Essential] 1 each PO DAILY 03/19/17 [History] Omeprazole [PriLOSEC] 20 mg PO BID 03/19/17 [History] Rosuvastatin Calcium [Rosuvastatin Calcium] 10 mg PO HS 03/19/17 [History] Sertraline [Zoloft] 50 mg PO DAILY 03/19/17 [History] Sitagliptin Phos/Metformin HCl [Janumet Xr 100-1,000 mg Tablet] 1 tab PO DAILY 03/19/17 [History] 3 Allergy/AdvReac Type Severity Reaction Status Date / Time No Known Allergies Allergy Verified 03/19/17 15:20 Internal Medicine - CN: Exam - Constitutional Vitals: Temp Pulse Resp BP Pulse Ox 97.4 F L 80 18 125/60 92 03/20/17 11:00 03/20/17 13:00 03/20/17 13:00 03/20/17 13:00 03/20/17 13:00 General appearance IM: Present: A&O X 3 - Head Head exam: Present: atraumatic - Eye Eye exam: Present: conjuntiva pink - Expanded Eye Exam Eyelids: bilateral: normal inspection - Cardiovascular Cardiovascular exam IM: Present: bradycardia Additional comments: The patient's rate is being paced - GI/Abdominal GI/Abdominal exam IM: Present: normal bowel sounds, soft Additional comments: The patient is nauseous and also vomiting Internal Medicine - CN: Reslt - Labs CBC & Chem 7: 03/20/17 04:10 03/20/17 04:10 Labs: Short CBC 03/20/17 Range/Units 04:10 WBC 9.6 (4.3-11.1) K/mcL Hgb 12.2 L D (12.9-16.9) g/dL Hct 36.7 L (37.5-50.1) % Plt Count 136 L (140-400) K/mcL Neutrophils # 7.2 (1.6-8.9) K/mcL BMP 03/20/17 04:10 Sodium 142 D Potassium 4.6 H Chloride 114 H Carbon Dioxide 19 BUN 19 Creatinine 1.10 Glucose 87 Calcium 8.5 L D Cardiac Enzymes 03/20/17 Range/Units 04:10 Troponin I 0.26 H* (0-0.03) ng/mL Liver Function 03/20/17 Range/Units 10:08 Total Bilirubin 0.9 (0.2-1.2) mg/dL Direct Bilirubin 0.4 (0.0-0.5) mg/dL AST 17 (5-34) Units/L ALT 16 (0-55) Units/L Alkaline Phosphatase 55 (38-126) Units/L Albumin 3.3 L (3.5-5.0) g/dL - ABG Interpretation ABG results: PT/INR, D-dimer PT 11.8 Seconds (9.4-12.1) 03/19/17 15:55 D-Dimer 628 ng/mLFEU (0-500) H 03/19/17 15:55 - Impressions Impressions Echocardiogram 03/20/17 21:01 Impressions: LVEF 60%. Normal LV chamber size, wall thickness and function. Mild left ventricular diastolic dysfunction. Atypical septal motion consistent with post-operative status. Normal right ventricular structure and function. No evidence of pulmonary hypertension. There is a trivial pericardial effusion present. A device lead was visualized in the right atrium and right ventricle. Left Ventricular Wall Motion: Rest Echo Findings All wall segments showed normal motion. Findings: Study Quality * Technically adequate exam. ECG Findings * Paced rhythm. Left Ventricle * LVEF 60%. * Normal LV chamber size, wall thickness and function. * Mild left ventricular diastolic dysfunction. * Atypical septal motion consistent with post-operative status. Right Ventricle * Normal right ventricular structure and function. Left Atrium * Mild to moderately dilated left atrium. Right Atrium * Normal right atrial size. Interatrial Septum * Interatrial septum not well evaluated. Aortic Valve * Trileaflet aortic valve with normal function. * No aortic regurgitation. * No aortic stenosis. Mitral Valve * Normal mitral valve structure and function. * No mitral regurgitation. * No mitral stenosis. Tricuspid Valve * Normal tricuspid valve structure and function. * Trace tricuspid regurgitation. * No evidence of pulmonary hypertension. Pulmonic Valve * Pulmonic valve not well visualized. * No pulmonic regurgitation. Aorta * Normally sized aortic root. Pericardium * There is a trivial pericardial effusion present. IVC * Normal IVC dimensions and inspiratory collapse. Pulmonary Artery * Normal visualized portions of the main pulmonary artery. Device lead * A device lead was visualized in the right atrium and right ventricle. Consult Discharge Plan - Plan Referrals: Anthony Armstrong MD [Primary Care Provider] - <Talat Hill P - Last Filed: 03/20/17 18:27> Date of Encounter: 03/20/17 Internal Medicine - CN: HPI - Data of Consult Requesting Physician: Bhavna De Jesus - Consult Narrative History of present illness: Mr. Lares is a 46 year old male Internal Medicine - CN: Exam - Constitutional Vitals: Temp Pulse Resp BP Pulse Ox 98.9 F 80 20 131/59 93 03/20/17 16:31 03/20/17 17:00 03/20/17 17:00 03/20/17 17:00 03/20/17 17:00 Internal Medicine - CN: Reslt - Labs CBC & Chem 7: 03/20/17 04:10 03/20/17 04:10 Labs: Short CBC 03/20/17 Range/Units 04:10 WBC 9.6 (4.3-11.1) K/mcL Hgb 12.2 L D (12.9-16.9) g/dL Hct 36.7 L (37.5-50.1) % Plt Count 136 L (140-400) K/mcL Neutrophils # 7.2 (1.6-8.9) K/mcL BMP 03/20/17 04:10 Sodium 142 D Potassium 4.6 H Chloride 114 H Carbon Dioxide 19 BUN 19 Creatinine 1.10 Glucose 87 Calcium 8.5 L D Cardiac Enzymes 03/20/17 Range/Units 04:10 Troponin I 0.26 H* (0-0.03) ng/mL Liver Function 03/20/17 Range/Units 10:08 Total Bilirubin 0.9 (0.2-1.2) mg/dL Direct Bilirubin 0.4 (0.0-0.5) mg/dL AST 17 (5-34) Units/L ALT 16 (0-55) Units/L Alkaline Phosphatase 55 (38-126) Units/L Albumin 3.3 L (3.5-5.0) g/dL - ABG Interpretation ABG results: PT/INR, D-dimer PT 11.8 Seconds (9.4-12.1) 03/19/17 15:55 D-Dimer 628 ng/mLFEU (0-500) H 03/19/17 15:55 - Impressions Impressions Echocardiogram 03/20/17 21:01 Impressions: LVEF 60%. Normal LV chamber size, wall thickness and function. Mild left ventricular diastolic dysfunction. Atypical septal motion consistent with post-operative status. Normal right ventricular structure and function. No evidence of pulmonary hypertension. There is a trivial pericardial effusion present. A device lead was visualized in the right atrium and right ventricle. Left Ventricular Wall Motion: Rest Echo Findings All wall segments showed normal motion. Findings: Study Quality * Technically adequate exam. ECG Findings * Paced rhythm. Left Ventricle * LVEF 60%. * Normal LV chamber size, wall thickness and function. * Mild left ventricular diastolic dysfunction. * Atypical septal motion consistent with post-operative status. Right Ventricle * Normal right ventricular structure and function. Left Atrium * Mild to moderately dilated left atrium. Right Atrium * Normal right atrial size. Interatrial Septum * Interatrial septum not well evaluated. Aortic Valve * Trileaflet aortic valve with normal function. * No aortic regurgitation. * No aortic stenosis. Mitral Valve * Normal mitral valve structure and function. * No mitral regurgitation. * No mitral stenosis. Tricuspid Valve * Normal tricuspid valve structure and function. * Trace tricuspid regurgitation. * No evidence of pulmonary hypertension. Pulmonic Valve * Pulmonic valve not well visualized. * No pulmonic regurgitation. Aorta * Normally sized aortic root. Pericardium * There is a trivial pericardial effusion present. IVC * Normal IVC dimensions and inspiratory collapse. Pulmonary Artery * Normal visualized portions of the main pulmonary artery. Device lead * A device lead was visualized in the right atrium and right ventricle. - Attending Attestation I examined this patient and my medical decision-making was reviewed with the Resident Physician/[employer] PRESS SET UP OPERATOR. I agree with the documented findings, disposition and treatment plan as described except to the extent set forth below. Patient seen and examined. Chart reviewed. I examined this patient in the intensive care unit where patient's was at bedside. Nausea and vomiting started few days before cardiovascular symptoms. The etiology of this nausea and vomiting can be multifactorial at this point. For now we will consider symptomatic treatment. Once patient's cardiology issue is settled then patient needs CT scan of the chest/abdomen pelvis. Before patient get discharged from this hospital he will get benefit from EGD
[2017-03-20] MEDS ORDERED: CeFAZolin Syr 2,000MG/20 ML 2,000 MG/20 ML SYRINGE IVPB ONE (14:20)
[2017-03-20] MEDS ORDERED: Ondansetron 4 MG/2 ML VIAL IVP SCH (16:00)
[2017-03-20] MEDS: *HR* Morphine 2 MG/ML SYRINGE IVP PRN ×2 (17:15→20:50)
[2017-03-20] MEDS: Ondansetron 4 MG/2 ML VIAL IVP PRN ×2 (17:15→20:50)
[2017-03-20] MEDS: Aspirin Enteric Coated 81 MG Tablet PO SCH (20:51)
[2017-03-21 07:13] LABS: Hemoglobin A1C 5.2 %
--- NOTE | 2017-03-21 07:51 | Internal Med Progress Note ---
<Chris Anthony - Last Filed: 03/21/17 17:55> Date of Encounter: 03/21/17 Time of Encounter: 07:45 - Assessment and plan (1) Nausea & vomiting Current Visit: Yes Status: Acute Assessment and plan: Nausea and vomiting significantly improved today. Patient currently on Zofran with tolerating symptoms. - Symptoms likely secondary to third-degree heart block and arrhythmia. - Patient undergo pacemaker placement, continue current management. Qualifiers: Vomiting type: cyclical vomiting Vomiting Intractability: intractable Qualified Code(s): G43.A1 - Cyclical vomiting, intractable (2) Complete heart block Current Visit: Yes Status: Acute Assessment and plan: 46-year-old male presents in symptomatic complete heart block requiring transvenous temporizing pacemaker. Cardiology following and managing with plans for pacemaker placement today. LHC performed demonstrating patent stents which is placed in 2008. - Echocardiogram demonstrates left ventricle ejection fraction 60%, normal left ventricular chamber size wall thickness and function. Mild left ventricular diastolic dysfunction. Atypical septal motion consistent with postoperative status. Normal right ventricular structure and function. No evidence of pulmonary hypertension, trivial pericardial effusion and a device lead was visualized in the right atrium the right ventricle. Plan: -Per cardiology, pacemaker today. (3) Coronary artery disease Current Visit: Yes Status: Acute Assessment and plan: Known history of coronary artery disease, stent placed in 2008. Visualized on LH C and still patent. - Echocardiogram as discussed above. - Patient admitted with elevated troponins likely secondary to symptomatic bradycardia, and significantly elevated blood pressure the time of admission. - Lipid panel appropriate. Plan: - Continue optimizing cardiac medications with aspirin, rosuvastatin. Beta patrizia and lisinopril held at this time prior to procedure. Qualifiers: Coronary Disease-Associated Artery/Lesion type: [place] artery [place] vs. transplanted heart: [place] heart Associated angina: with unspecified angina Qualified Code(s): I25.119 - Atherosclerotic heart disease of [place] coronary artery with unspecified angina pectoris (4) History of coronary artery stent placement Current Visit: No Status: Chronic Assessment and plan: As discussed above. (5) Diabetes mellitus Current Visit: No Status: Chronic Assessment and plan: Known type II diabetic, well controlled. Hemoglobin A1c 5.2, glucose 87 today. Plan: - Nothing by mouth prior to procedure - Continue medium dose sliding scale insulin - Continue monitor glucose levels. Qualifiers: Diabetes mellitus type: type 2 Diabetes mellitus complication status: with unspecified complications Diabetes mellitus alf insulin use: without alf use Qualified Code(s): E11.8 - Type 2 diabetes mellitus with unspecified complications (6) Hypertension Current Visit: Yes Status: Chronic Assessment and plan: Patient noted with significantly elevated blood pressure. Patient's blood pressure currently 120/56 with a pressure medications held prior to procedure. -Continue to monitor blood pressure and address as needed. Qualifiers: Hypertension type: essential hypertension Qualified Code(s): I10 - Essential (primary) hypertension - Subjective Interval history: Mr. Lares 46-year-old male is seen and evaluated patient bedside this morning. He is alert awake interactive denies any acute pain. He does have occasional nausea and vomiting but this is been associated more so with medication administration. He has some slight photophobia and a small headache which she says is located in the occipital region but improved significantly from yesterday. While in the room he did receive some IV medications for which she had one small episode of vomiting and a nosebleed associated. He states that he is feeling significantly better compared to yesterday now that he is currently transvenously paced. He is hoping he does not need a pacemaker but if he does he is waiting. No further concerns at this time. - Constitutional Vitals: Temp Pulse Resp BP Pulse Ox 98.0 F 80 16 120/59 99 03/21/17 03:21 03/21/17 07:00 03/21/17 07:00 03/21/17 07:00 03/21/17 07:00 General appearance: Present: A&O X 3 Exam: General: Patient alert, awake, oriented 3, interactive, in no acute distress HEENT: Normocephalic, atraumatic, pupils symmetric bilaterally reactive to light , visual regal[place] intact, scleral hemorrhaging bilaterally right greater than left. neck supple trachea midline no palpable lymphadenopathy, no thyromegaly. Chest: Symmetric bilateral correlating with respiratory effort, effort nonlabored. Cardiac: Regular rate and rhythm, positive S1 and S2. no bruits appreciated bilateral carotids, Radial pulses 2+ bilateral, posterior tibial and dorsal pedal pulses 2+ bilateral. Respiratory: Clear to auscultation all lung regalado Abdomen: Soft, nontender, positive bowel sounds, no palpable masses appreciated on examination Extremities: Symmetric bilateral, bilateral lower extremities without erythema or edema patient moving all 4 extremities spontaneously., Transvenous pacemaker in place. Neurologic: No focal deficits appreciated on examination. Face symmetric, muscle strength symmetric bilateral upper and lower extremities. Internal Medicine: Result - Labs CBC & Chem 7: 03/20/17 04:10 03/21/17 08:57 Labs: Liver Function 03/20/17 Range/Units 10:08 Total Bilirubin 0.9 (0.2-1.2) mg/dL Direct Bilirubin 0.4 (0.0-0.5) mg/dL AST 17 (5-34) Units/L ALT 16 (0-55) Units/L Alkaline Phosphatase 55 (38-126) Units/L Albumin 3.3 L (3.5-5.0) g/dL - ABG Interpretation ABG results: PT/INR, D-dimer PT 11.8 Seconds (9.4-12.1) 03/19/17 15:55 D-Dimer 628 ng/mLFEU (0-500) H 03/19/17 15:55 - Impressions Impressions Echocardiogram 03/20/17 21:01 Impressions: LVEF 60%. Normal LV chamber size, wall thickness and function. Mild left ventricular diastolic dysfunction. Atypical septal motion consistent with post-operative status. Normal right ventricular structure and function. No evidence of pulmonary hypertension. There is a trivial pericardial effusion present. A device lead was visualized in the right atrium and right ventricle. Left Ventricular Wall Motion: Rest Echo Findings All wall segments showed normal motion. Findings: Study Quality * Technically adequate exam. ECG Findings * Paced rhythm. Left Ventricle * LVEF 60%. * Normal LV chamber size, wall thickness and function. * Mild left ventricular diastolic dysfunction. * Atypical septal motion consistent with post-operative status. Right Ventricle * Normal right ventricular structure and function. Left Atrium * Mild to moderately dilated left atrium. Right Atrium * Normal right atrial size. Interatrial Septum * Interatrial septum not well evaluated. Aortic Valve * Trileaflet aortic valve with normal function. * No aortic regurgitation. * No aortic stenosis. Mitral Valve * Normal mitral valve structure and function. * No mitral regurgitation. * No mitral stenosis. Tricuspid Valve * Normal tricuspid valve structure and function. * Trace tricuspid regurgitation. * No evidence of pulmonary hypertension. Pulmonic Valve * Pulmonic valve not well visualized. * No pulmonic regurgitation. Aorta * Normally sized aortic root. Pericardium * There is a trivial pericardial effusion present. IVC * Normal IVC dimensions and inspiratory collapse. Pulmonary Artery * Normal visualized portions of the main pulmonary artery. Device lead * A device lead was visualized in the right atrium and right ventricle. Consult Discharge Plan - Plan Referrals: Anthony Armstrong MD [Primary Care Provider] - <BernyBoom Valle - Last Filed: 03/21/17 19:48> Date of Encounter: 03/21/17 - Assessment and plan (1) Nausea & vomiting Current Visit: Yes Status: Acute Qualifiers: Vomiting type: cyclical vomiting Vomiting Intractability: intractable Qualified Code(s): G43.A1 - Cyclical vomiting, intractable (2) Hypertension Current Visit: Yes Status: Chronic Qualifiers: Hypertension type: essential hypertension Qualified Code(s): I10 - Essential (primary) hypertension (3) Diabetes mellitus Current Visit: No Status: Chronic Qualifiers: Diabetes mellitus type: type 2 Diabetes mellitus complication status: without complication Diabetes mellitus [employer] insulin use: without alf use Qualified Code(s): E11.9 - Type 2 diabetes mellitus without complications - Constitutional Vitals: Temp Pulse Resp BP Pulse Ox 98.7 F 66 12 129/71 93 03/21/17 19:39 03/21/17 19:00 03/21/17 19:00 03/21/17 19:00 03/21/17 19:00 Internal Medicine: Result - Labs CBC & Chem 7: 03/20/17 04:10 03/21/17 08:57 Labs: BMP 03/21/17 08:57 Sodium 141 Potassium 4.1 Chloride 108 Carbon Dioxide 22 BUN 10 Creatinine 1.00 Glucose 93 Calcium 9.3 - ABG Interpretation ABG results: PT/INR, D-dimer PT 11.8 Seconds (9.4-12.1) 03/19/17 15:55 D-Dimer 628 ng/mLFEU (0-500) H 03/19/17 15:55 - Impressions Impressions Chest X-Ray 03/21/17 15:11 IMPRESSION: 1. Interval placement of a left chest wall pacer. No complication including pneumothorax. 2. Moderate pulmonary edema. 3. Cardiomegaly. 4. Elevation of the right hemidiaphragm. D/ / 03/21/2017 15:41:01 Annabel Sullivan MD / sandra Interpreting Provider: Annabel Sullivan MD - Attending Attestation I examined this patient and my medical decision-making was reviewed with the Resident Physician on 03/21/17. I agree with the documented findings, disposition and treatment plan as described except to the extent set forth below. Mr Lares is currently admitted for acute complete heart block. He remains moderate to high risk due to potential for worsening cardiac issues. Mr Lares has had improved N/V today with meds. To have pacer. No fever or chills. No CP. Exam Alert. Comfortable Mucus membranes dry Abd soft No edema I/P 1. N/V 2. CHB Further diagnoses and plan as above.
[2017-03-21] MEDS: *HR* Enoxaparin 40 MG/0.4 ML SYRINGE SQ SCH (07:52)
[2017-03-21] MEDS: Insulin LISPRO 300 UNITS/3 ML VIAL SQ SCH ×3 (07:53→17:13)
[2017-03-21] MEDS: Cholecalciferol (D-3) 1,000 UNIT TABLET PO SCH (07:53)
[2017-03-21] MEDS: Multivit/Ca/Min/Fe/FA 1 TAB TABLET PO SCH (07:53)
[2017-03-21] MEDS: *HR* Morphine 2 MG/ML SYRINGE IVP PRN ×2 (08:01→15:50)
[2017-03-21] MEDS: Ondansetron 4 MG/2 ML VIAL IVP PRN ×2 (08:01→15:49)
[2017-03-21 09:14] LABS: BUN/Creatinine Ratio 10 (6-26); Blood Urea Nitrogen 10 mg/dL (8-26); Calcium 9.3 mg/dL (8.6-10.8); Carbon Dioxide 22 mEq/L (19-29); Chloride 108 mEq/L (98-109); Glucose 93 mg/dL (70-99); Osmolality,Calculated 291 (280-300); Potassium 4.1 mEq/L (3.5-4.5); Sodium 141 mEq/L (136-145); eGFR For African Americans > 60 (> 60); eGFR For Non-African Americans > 60 (> 60)
--- NOTE | 2017-03-21 10:06 | Event Note ---
Date of Encounter: 03/21/17 Time of Encounter: 10:04 - Cardiology Event Note Patient set up for PPM for CHB. Continued to be PPM dependent. All questions answered. Patient agrees to proceed. R/B/A discussed. Patient and deny questions.
--- NOTE | 2017-03-21 11:51 | Pre-Sedation Evaluation ---
Pre-sedation evaluation - Pre-sedation checklist Date of procedure: 03/21/17 Procedure: PPM Recent Vitals: Last Vital Signs Temp 97.9 F 03/21/17 08:00 Pulse 70 03/21/17 11:00 Resp 22 03/21/17 11:00 BP 129/83 03/21/17 11:00 Pulse Ox 93 03/21/17 11:00 H&P (including ROS) documented in medical record: Yes Previous reaction to sedatives/anesthetics: No Dietary Status: NPO after Midnight Dentition: No loose teeth or bridges Possible difficult airway: No ASA Classification *see protocol: CLASS II-Mild systemic disease Plan of Care: Pt appropriate candidate for procedure/moderate/conscious sedation , Risks/benefits of procedure/sedation discussed w/ patient/family
[2017-03-21] MEDS ORDERED: CeFAZolin Syr 2,000MG/20 ML 2,000 MG/20 ML SYRINGE IVPB ONE (12:00)
[2017-03-21] MEDS ORDERED: Water for inj. (sterile) 10 ML IV ONE (12:09)
[2017-03-21] MEDS ORDERED: 0.9 % Sodium Chloride 500 ML ONE ×2 (12:09→12:45)
[2017-03-21] MEDS ORDERED: 0.9 % Sodium Chloride 1,000 ML ONE (12:29)
[2017-03-21] MEDS ORDERED: *HR* Midazolam HCl 5 MG/5 ML VIAL IVP ONE (12:29)
[2017-03-21] MEDS ORDERED: *HR* FentaNYL (PF) 100 MCG/2 ML VIAL ONE (12:29)
--- NOTE | 2017-03-21 12:38 | Pre-Sedation Evaluation ---
Pre-sedation evaluation - Pre-sedation checklist Date of procedure: 03/21/17 Procedure: PPM Recent Vitals: Last Vital Signs Temp 97.7 F 03/21/17 11:59 Pulse 70 03/21/17 12:00 Resp 24 03/21/17 12:00 BP 131/71 03/21/17 12:00 Pulse Ox 96 03/21/17 12:00 H&P (including ROS) documented in medical record: Yes Previous reaction to sedatives/anesthetics: No Dietary Status: NPO after Midnight Airway Assessment: Patient can open mouth completely, TMJ function normal, Micrognathia (under-bite, receding chin) absent Dentition: No loose teeth or bridges Possible difficult airway: No ASA Classification *see protocol: CLASS II-Mild systemic disease Plan of Care: Pt appropriate candidate for procedure/moderate/conscious sedation , Risks/benefits of procedure/sedation discussed w/ patient/family
--- NOTE | 2017-03-21 13:06 | Invasive Diagnostic Lab Proc ---
Name: Milan Lares Date of Study: 03/19/2017 Date: 1970 Ht: 68.1in Medical Record#: [id number] Age: 46 Wt: 209.44lb Gender: Male BSA: 2.09 Order #: [id number] BMI: 31.74 Physicians Procedure Physician: Bhavna De Jesus MD, [facility] Referring MD: Anthony Armstrong MD Referring MD: Staff Name Position Time In Bev Scott RT (R) Scrub 07:35 PM Saud Mart RN Front Desk Host 07:38 PM Yudy Almonte RN Monitor 07:38 PM Indications Indication Symptomatic bradycardia Non-Stemi CHB Procedures Performed Procedure INS/RPL TEMP PM LEAD/CATH;SNGL L HRT ARTERY/VENTRICLE ANGIO IV Doppler BLD Flow 1st Vessel MOD SED OTH PHYS/QHP 5/>YRS MOD SED OTHER PHYS/QHP EA MOD SED OTHER PHYS/QHP EA Pre-Procedure Checklist Informed consent is complete signed and on chart. H&P is on chart. ID band is on and ID verified with patient. Pt not NPO for procedure and MD aware. The procedure was described for the patient and questions were answered. Blood Pressure: 135/52 ECG is on chart. Rhythm: temp V paced Plan of Care Patient will tolerate the procedure without complications. Adequate level of comfort will be maintained. Hemodynamics will remain stable Patient will recover from procedure without complications. Respiratory function will be maintained. Cardiac rhythm will remain stable. Patient temperature will be maintained. Patient and/or family have verbalized understanding of the procedure. Patient Education Intravenous Access Time IV Size Location DC'd Fluid/Drip Rate Units RN 07:18 PM 18g 1 04/20" Patent On Arrival Rt Antecubital 0.9NaCl 25 ml/hr Saud Mart RN Allergies NO KNOWN DRUG ALLERGIES Vital Signs Time BP (mmHg) HR (bpm) O2 Sat. RR (bpm) LOC 07:18 PM 135 / 52 50 97 % 18 5 = Fully awake and oriented or at pre-proc level 07:40 PM / % 5 = Fully awake and oriented or at pre-proc level 07:40 PM / % 5 = Fully awake and oriented or at pre-proc level 07:56 PM / % 5 = Fully awake and oriented or at pre-proc level 08:12 PM / % 5 = Fully awake and oriented or at pre-proc level 07:39 PM 99 / 80 80 90 % 20 07:40 PM 150 / 64 30 91 % 20 07:44 PM 128 / 71 80 98 % 17 07:49 PM 138 / 63 79 98 % 19 07:54 PM 129 / 62 80 99 % 13 07:59 PM 112 / 57 79 98 % 22 08:04 PM 117 / 51 96 96 % 18 08:09 PM 109 / 51 80 97 % 15 08:14 PM 106 / 54 79 96 % 17 08:15 PM 103 / 45 80 94 % 14 07:34 PM 160 / 94 % 08:19 PM 106 / 51 80 96 % 20 08:22 PM 111 / 49 81 96 % 18 08:23 PM 91 / 44 81 97 % 18 08:25 PM 95 / 46 80 98 % 20 08:29 PM 106 / 50 80 93 % 21 08:34 PM 111 / 52 80 94 % 20 Procedural Medications Time Medication Dose Units Method Given By 07:38 PM Oxygen 6 L/min nasal cannula Saud Mart RN 07:38 PM Lidocaine 2% 14 ml Subcutaneous Bhavna De Jesus MD, FACC 07:56 PM Lidocaine 2% 16 ml Subcutaneous Bhavna De Jesus MD, FACC 08:00 PM Oxygen 4 L/min nasal cannula Saud Mart RN 08:13 PM Angiomax 0.75mg/kg bolus: 14 ml Intravenous Saud Mart RN 08:14 PM Angiomax 1.75mg/kg/hr: 33 ml Intravenous Saud Mart RN 08:19 PM Adenosine 150 mcg/kg/min Intravenous Saud Mart RN 08:23 PM Angiomax 0.75mg/kg bolus: 0 ml Intravenous Saud Mart RN 07:36 PM Versed 1 mg Intravenous Saud Mart RN 07:36 PM Fentanyl 25 mcg Intravenous Saud Mart RN ASA Classification: CLASS III- Severe systemic disease (i.e. prior AMI, diabetes with vascular complications, morbid obesity) Emergent Procedure: ASA score is assumed Madison Score Preprocedure Postprocedure Activity 2- Moves 4 extremities sustained head lift Activity 2- Moves 4 extremities sustained head lift Circulation 2- SBP +/= 20 points of pre-anesthetic level Circulation 2- SBP +/= 20 points of pre-anesthetic level Consciousness 2- Awake and alert oriented x 3 Consciousness 2- Awake and alert oriented x 3 O2 Saturation 1- Needs O2 inhalation to maintain O2 saturation of 90% O2 Saturation 2- Able to maintain O2 satruation of 92% on room air Respiratory 2- Able to deep breathe and cough well Respiratory 2- Able to deep breathe and cough well Total Score 9 Total Score 10 Contrast Agent: Isovue Diagnostic Contrast: 107 ml Total Contrast: 107 ml Fluoro Dose: 412 mGy Procedure Log Time Note Enter By 07:23 PM CathStat 07:24 PM the patient was on Versed 2mg/hr and Fentanyl 25mcg/hr in the ER. These drips were turned off per Ananth Almonte RN prior to leaving the ER and going to the construction craft laborer due to patient being drowsy. The patient was on external pacemaker with setting of 100 MA and a rate of 50. Patient's heart rate was only capturing about 50%. [email or web address] 07:33 PM Case Start 07:33 PM Vitals capture started with the following parameters, Patient=Adult, Interval=5 min, Initial Tyfldtzt=753 mmHg, Deflation Rate=5 mmHg, Cuff placed on Right Arm 07:34 PM UIDG=787/94 mmhg, Comment=Vpaced 07:35 PM Pt arrived to rd lab technician 2 at 19:35 csmith 07:35 PM Bev Scott (R) Position: Scrub Time in: 19:35 csmith 07:35 PM Patient charges- Angio tray pack, Navilyst 3mm J, Pulse Oximetry and ACIST tubing and transducer csmith 07:36 PM Time: 19:36 Versedl 1 mg Intravenous Given by Saud Mart RN csmith 07:36 PM Time: 19:36 Fentanyl 25 mcg Intravenous Given by Saud Mart RN csmith 07:37 PM Hair removed from procedure site in procedure lab using clippers. Bilateral groin prepped with Chloraprep by Bev Scott (R), safety strap applied then patient was draped. Skin intact. csmith 07:38 PM Case Delayed No csmith 07:38 PM Saud Mart RN Position: Front Desk Host Time in: 19:38 csmith 07:38 PM Yudy Almonte RN Position: Monitor Time in: 19:38 csmith 07:38 PM ASA Class CLASS III- Severe systemic disease (i.e. prior AMI, diabetes with vascular complications, morbid obesity) csmith 07:38 PM Meet and greet completed [facility] PM Sign in performed according to hospital policy. csmith 07:38 PM Procedure start 19:38 csmith 07:38 PM Time: 19:38 Oxygen on at 6 L/min per nasal cannula by Saud Mart RN csmith 07:38 PM Time out performed according to hospital policy csmith 07:38 PM Time: 19:38 14 ml Lidocaine 2% to right groin Subcutaneous Given by Bhavna De Jesus MD, [facility] csmith 07:39 PM HR=80 bpm, NIBP=99/80 mmhg, SpO2=90.0 %, Resp=20 B/min, Comment=Vpaced 07:39 PM NIBP STAT measurement started. 07:40 PM Time: 19:40 Patient comfortable and pain free: Yes csmith 07:40 PM Time: :40LOC: 5 = Fully awake and oriented or at pre-proc level csmith 07:40 PM HR=30 bpm, HAWR=761/64 mmhg, SpO2=91.0 %, Resp=28 B/min, Comment=Vpaced 07:41 PM Access obtained by percutaneous puncture. 6Fr 11cm Cordis Goldie sheath placed in right Femoral vein. [id number] csmith 07:42 PM PstProc: Temp pacer on. csmith 07:42 PM PstProc:Bard Bipolar Pacing Catheter Temp pacer inserted into right femoral vein csmith 07:43 PM Recorded Pressure: Ao, HR=80, Condition=Condition 1 (Aorta) Ao -49/-49/-49 07:43 PM thresholds being checked csmith 07:44 PM HR=80 bpm, MMIP=097/71 mmhg, SpO2=98.0 %, Resp=17 B/min, Comment=Vpaced 07:44 PM PstProc: Temp pacer turned on, rate 80 ppm, mA 4, sensitivity 2 csmith 07:44 PM PstProc: Sheath(s) sutured in due to Temporary Pacer. csmith 07:49 PM HR=79 bpm, CUQM=115/63 mmhg, SpO2=98.0 %, Resp=19 B/min, Comment=Vpaced 07:54 PM HR=80 bpm, KLWK=631/62 mmhg, SpO2=99.0 %, Resp=13 B/min, Comment=Vpaced 07:56 PM Time: 19:40LOC: 5 = Fully awake and oriented or at pre-proc level csmith 07:56 PM Time: 19:40 Patient comfortable and pain free: Yes csmith 07:56 PM Time: 19:56 16 ml Lidocaine 2% to right groin Subcutaneous Given by [facility] PM Access obtained by percutaneous puncture. 5Fr 10cm Terumo [place] sheath placed in right Femoral artery. [id number] csmith 07:57 PM 5Fr FL 4 [facility] PM Pressure channel 1 zeroed. 07:59 PM HR=79 bpm, LWAO=323/57 mmhg, SpO2=98.0 %, Resp=22 B/min, Comment=Vpaced 07:59 PM Recorded Pressure: Ao, HR=80, Condition=Condition 1 (Aorta) Ao 84/53/65 07:59 PM LCA angiography performed in multiple views. csmith 08:00 PM Time: 20:00 Oxygen on at 4 L/min per nasal cannula by Saud Mart RN csmith 08:[address] [facility] 08:02 PM 5Fr FR 4 [facility] RCA angiography performed in VJ. csmith 08:03 PM Catheter removed [facility] 08:03 PM Coronary Dominance: Left [facility] 08:03 PM 5Fr Pigtail catheter inserted over the wire [facility] PM Catheter selectively placed in left ventricle csmith 08:03 PM Bolus angiogram of left Ventricle complete: 8 ml/sec for a total of 24 mls csmith 08:03 PM Pressure channel 1 zeroed. 08:04 PM Recorded Pressure: LV, HR=86, Condition=Condition 1 (Left Ventricle) LV 84/14/24 08:04 PM Recorded Pressure: LV, HR=82, Condition=Condition 1 (Left Ventricle) LV 85/12/15 08:04 PM HR=96 bpm, WJUT=048/51 mmhg, SpO2=96.0 %, Resp=18 B/min, Comment=Vpaced 08:04 PM Recorded Pressure: LV, Ao, HR=80, Condition=Condition 1 (Left Ventricle) LV 93/26/34, (Aorta) Ao 86/51/68 08:04 PM Catheter removed csmith 08:09 PM HR=80 bpm, DLKF=087/51 mmhg, SpO2=97.0 %, Resp=15 B/min, Comment=Vpaced 08:12 PM Time: 19:56 Patient comfortable and pain free: Yes [facility] 08:12 PM Time: 19:56LOC: 5 = Fully awake and oriented or at pre-proc level csmith 08:13 PM Sheath exchanged for a 6 Fr 11 cm Cordis Goldie sheath [id number] csmith 08:13 PM 6Fr XB LAD 3.5 [place] Bright-Tip guide catheter was used to cannulate the PCI vessel successfully. reused? No [facility] 08:14 PM Time: 20:13 Angiomax 0.75mg/kg bolus: 14 ml Intravenous Given by Saud Mart RN Hall pump [facility] 08:14 PM Time: 20:14 Angiomax 1.75mg/kg/hr: 33 ml Intravenous Given by Saud Mart RN Hall pump [facility] 08:14 PM HR=79 bpm, UHRP=722/54 mmhg, SpO2=96.0 %, Resp=17 B/min, Comment=Vpaced 08:14 PM Recorded Pressure: Ao, HR=71, Condition=Condition 1 (Aorta) Ao 74/41/55 08:14 PM NIBP STAT measurement started. 08:15 PM .014 Prowater 180cm guide wire across target lesion- successful. reused? No [facility] 08:15 PM HR=80 bpm, XAPA=755/45 mmhg, SpO2=94.0 %, Resp=14 B/min, Comment=Vpaced 08:17 PM Acist Navvus FFR wire advanced to target lesion. [facility] 08:19 PM HR=80 bpm, YZYA=567/51 mmhg, SpO2=96.0 %, Resp=33 B/min, Comment=Vpaced 08:20 PM Time: 20:20 Adenosine 150 mcg/kg/min Intravenous Given by Saud Mart RN Hall pump [facility] 08:21 PM NIBP STAT measurement started. 08:22 PM HR=81 bpm, WQAT=218/49 mmhg, SpO2=96.0 %, Resp=18 B/min, Comment=Vpaced 08:22 PM NIBP STAT measurement started. 08:23 PM HR=81 bpm, NIBP=91/44 mmhg, SpO2=97 %, Resp=18 B/min 08:23 PM Time: 20:23 Angiomax 0.75mg/kg bolus: off ml Intravenous Given by Saud Mart RN Hall pump csmith 08:23 PM Flow Wire removed intact csmith 08:24 PM FFR Measurement: 0.82 csmith 08:24 PM Guide wire removed intact. csmith 08:24 PM Guide catheter removed intact. csmith 08:24 PM Bolus angiogram of right Femoral complete: 2 ml/sec for a total of 4 mls csmith 08:25 PM Procedure completed at 20:25 csmith 08:25 PM HR=80 bpm, NIBP=95/46 mmhg, SpO2=98 %, Resp=25 B/min 08:26 PM Sign out completed: Radiation Dose 411.84 mGy Fluoro Time: 4.7 Isovue 370 - 200ml contrast 107 ml given by Bhavna De Jesus MD, [facility]. Complications: NoneCardiac Rehab Consult needed: NoConfirmed administered medications: Yes csmith 08:26 PM Isovue 370 - 200ml,1 Bottle(s) used. csmith 08:26 PM Arterial sheath pulled, Mynx closure device used and was Successful S/N. csmith 08:27 PM Estimated Blood Loss: minimal csmith 08:27 PM Time: 20:12LOC: 5 = Fully awake and oriented or at pre-proc level csmith 08:27 PM Time: 20:12 Patient comfortable and pain free: Yes csmith 08:27 PM Post ECG Paced csmith 08:27 PM Post Blood Pressure 95/46 csmith 08:27 PM 20:27 Post Pulses Bilateral DP & PT 2+ csmith 08:27 PM Information taught Cardiac Cath and Temporary pacemaker csmith 08:29 PM HR=80 bpm, HPCK=926/50 mmhg, SpO2=93 %, Resp=21 B/min 08:33 PM Education needs Plan of Care, Disease Process, and Responsibilities of Patient in Care csmith 08:34 PM Learning barriers :None [facility] 08:34 PM Education Methods Verbal [facility] 08:34 PM Education evaluation Able to repeat information [facility] 08:34 PM Site status No bleeding/hematoma - Rt Groin as reported by Bev Scott RT (R) at 20:34 csmith 08:34 PM Opsite applied csmith 08:34 PM HR=80 bpm, FLKS=926/52 mmhg, SpO2=94 %, Resp=20 B/min 08:34 PM Plavix, Effient or Brilinta given No csmith 08:35 PM Lesion found in Proximal LAD. Pre Stenosis: 50 csmith 08:35 PM Lesion found in Proximal RCA. Pre Stenosis: 25 csmith 08:36 PM Lesion found in Proximal Circumflex. Pre Stenosis: 20 csmith 08:36 PM Lesion found in Distal Circumflex. Pre Stenosis: 25 csmith 08:36 PM Proximal Left Anterior Descending Coronary Artery with 50% stenosis. csmith 08:37 PM Lesion found in Ramus. Pre Stenosis: 60 csmith 08:37 PM Mid/Distal Left Anterior Descending Coronary Artery and diagonal branches with 25% stenosis. csmith 08:38 PM Right Coronary, Right Posterior Descending Arteries with Right Posterolateral and Acute Marginal branches with 25 % stenosis. csmith 08:38 PM Ramus with 60% stenosis. csmith 08:40 PM Leach catheter 16Fr was inserted using sterile technique per Florence Cowan RN ejohnson 08:54 PM Report given to Wally GUZMAN Pt taken to E Room #4. 20:50 ejohnson 08:54 PM Delay to floor No ejohnson 08:55 PM Patient out of room: 20:54 ejohnson 08:55 PM Complications: None ejohnson Equipment Used Size Length Diameter Item Category Angio tray pack Other Cordis Goldie Pacing Catheter catheter Terumo [place] sheath Cordis Goldie sheath Britetip Guide catheter Hall pump Other Wisr Guidewire Prime Wire FFR Wire Diagnostic Isovue 370- 200ml Contrast Mynx Sealant Complications Complication None Hemodynamics Pressures Site Systolic/A Wave Diastolic/V Wave Mean AO -49 -49 -49 AO 84 53 65 LV 84 14 24 LV 85 12 15 LV 93 26 34 AO 86 51 68 AO 74 41 55 Post Procedure Information Blood Pressure: 95/46 mmHg Rhythm: Paced Post procedural instructions were given Closure Device Time Device Success/Fail 03/19/2017 8:27:00 PM MynxGrip Successful Site Checks Time Location Status Staff Sheath In? Note 08:34 PM Rt Groin No bleeding/hematoma Bev Scott RT (R) Pulses Time Site Pre-Procedure Post-Procedure Note 8:27:00 PM Bilateral DP & PT 2+ 03/19/2017 7:35:00 PM Bilateral DP & PT 2+ Updated by Yudy Almonte RN on 03/21/2017 12:58:39 PM Yudy Almonte RN electronically signed on 03/21/2017 12:59:04 PM with status of Final
--- NOTE | 2017-03-21 13:21 | Invasive Diagnostic Lab Proc ---
Name: Milan Lares Date of Study: 03/19/2017 Date: 1970 Ht: 68.1in Medical Record#: [id number] Age: 46 Wt: 209.44lb Gender: Male BSA: 2.09 Order #: [id number] BMI: 31.74 Physicians Procedure Physician: Bhavna De Jesus MD, [facility] Referring MD: Anthony Armstrong MD Referring MD: Staff Name Position Time In Bev Scott RT (R) Scrub 07:35 PM Saud Mart RN Chief Cardiopulmonary Technologist 07:38 PM Yudy Almonte RN Monitor 07:38 PM Indications Indication Symptomatic bradycardia Non-Stemi CHB Procedures Performed Procedure INS/RPL TEMP PM LEAD/CATH;SNGL L HRT ARTERY/VENTRICLE ANGIO IV Doppler BLD Flow 1st Vessel MOD SED OTH PHYS/QHP 5/>YRS MOD SED OTHER PHYS/QHP EA MOD SED OTHER PHYS/QHP EA Pre-Procedure Checklist Informed consent is complete signed and on chart. H&P is on chart. ID band is on and ID verified with patient. Pt not NPO for procedure and MD aware. The procedure was described for the patient and questions were answered. Blood Pressure: 135/52 ECG is on chart. Rhythm: temp V paced Plan of Care Patient will tolerate the procedure without complications. Adequate level of comfort will be maintained. Hemodynamics will remain stable Patient will recover from procedure without complications. Respiratory function will be maintained. Cardiac rhythm will remain stable. Patient temperature will be maintained. Patient and/or family have verbalized understanding of the procedure. Patient Education Intravenous Access Time IV Size Location DC'd Fluid/Drip Rate Units RN 07:18 PM 18g 1 /" Patent On Arrival Rt Antecubital 0.9NaCl 25 ml/hr Saud Mart RN Allergies NO KNOWN DRUG ALLERGIES Vital Signs Time BP (mmHg) HR (bpm) O2 Sat. RR (bpm) LOC 07:18 PM 135 / 52 50 97 % 18 4 = Oriented but drowsy 07:40 PM / % 4 = Oriented but drowsy 07:40 PM / % 4 = Oriented but drowsy 07:56 PM / % 4 = Oriented but drowsy 08:12 PM / % 4 = Oriented but drowsy 07:39 PM 99 / 80 80 90 % 20 07:40 PM 150 / 64 30 91 % 20 07:44 PM 128 / 71 80 98 % 17 07:49 PM 138 / 63 79 98 % 19 07:54 PM 129 / 62 80 99 % 13 07:59 PM 112 / 57 79 98 % 22 08:04 PM 117 / 51 96 96 % 18 08:09 PM 109 / 51 80 97 % 15 08:14 PM 106 / 54 79 96 % 17 08:15 PM 103 / 45 80 94 % 14 07:34 PM 160 / 94 % 08:19 PM 106 / 51 80 96 % 20 08:22 PM 111 / 49 81 96 % 18 08:23 PM 91 / 44 81 97 % 18 08:25 PM 95 / 46 80 98 % 20 08:29 PM 106 / 50 80 93 % 21 08:34 PM 111 / 52 80 94 % 20 Procedural Medications Time Medication Dose Units Method Given By 07:38 PM Oxygen 6 L/min nasal cannula Saud Mart RN 07:38 PM Lidocaine 2% 14 ml Subcutaneous Bhavna De Jesus MD, FACC 07:56 PM Lidocaine 2% 16 ml Subcutaneous Bhavna De Jesus MD, FACC 08:00 PM Oxygen 4 L/min nasal cannula Saud Mart RN 08:13 PM Angiomax 0.75mg/kg bolus: 14 ml Intravenous Saud Mart RN 08:14 PM Angiomax 1.75mg/kg/hr: 33 ml Intravenous Saud Mart RN 08:19 PM Adenosine 150 mcg/kg/min Intravenous Saud Mart RN 08:23 PM Angiomax 0.75mg/kg bolus: 0 ml Intravenous Saud Mart RN 07:36 PM Versed 1 mg Intravenous Saud Mart RN 07:36 PM Fentanyl 25 mcg Intravenous Saud Mart RN ASA Classification: CLASS III- Severe systemic disease (i.e. prior AMI, diabetes with vascular complications, morbid obesity) Emergent Procedure: ASA score is assumed Madison Score Preprocedure Postprocedure Activity 2- Moves 4 extremities sustained head lift Activity 2- Moves 4 extremities sustained head lift Circulation 2- SBP +/= 20 points of pre-anesthetic level Circulation 2- SBP +/= 20 points of pre-anesthetic level Consciousness 2- Awake and alert oriented x 3 Consciousness 2- Awake and alert oriented x 3 O2 Saturation 1- Needs O2 inhalation to maintain O2 saturation of 90% O2 Saturation 2- Able to maintain O2 satruation of 92% on room air Respiratory 2- Able to deep breathe and cough well Respiratory 2- Able to deep breathe and cough well Total Score 9 Total Score 10 Contrast Agent: Isovue Diagnostic Contrast: 107 ml Total Contrast: 107 ml Fluoro Dose: 412 mGy Procedure Log Time Note Enter By 07:23 PM CathStat 07:24 PM the patient was on Versed 2mg/hr and Fentanyl 25mcg/hr in the ER. These drips were turned off per Ananth Almonte RN prior to leaving the ER and going to the lab animal technician due to patient being drowsy. The patient was on external pacemaker with setting of 100 MA and a rate of 50. Patient's heart rate was only capturing about 50%. ejohnson 07:33 PM Case Start 07:33 PM Vitals capture started with the following parameters, Patient=Adult, Interval=5 min, Initial Etlzddvy=900 mmHg, Deflation Rate=5 mmHg, Cuff placed on Right Arm 07:34 PM PIDZ=701/94 mmhg, Comment=Vpaced 07:35 PM Pt arrived to film laboratory technician 2 at 19:35 csmith 07:35 PM Bev Scott (R) Position: Scrub Time in: 19:35 csmith 07:35 PM Patient charges- Angio tray pack, Navilyst 3mm J, Pulse Oximetry and ACIST tubing and transducer csmith 07:36 PM Time: 19:36 Versedl 1 mg Intravenous Given by Saud Mart RN [facility] 07:36 PM Time: 19:36 Fentanyl 25 mcg Intravenous Given by Saud Mart RN csmith 07:37 PM Hair removed from procedure site in procedure lab using clippers. Bilateral groin prepped with Chloraprep by Bev Scott (R), safety strap applied then patient was draped. Skin intact. csmith 07:38 PM Case Delayed No csmith 07:38 PM Saud Mart RN Position: Chief Cardiopulmonary Technologist Time in: 19:38 [facility] 07:38 PM Yudy Almonte RN Position: Monitor Time in: 19:38 [facility] 07:38 PM ASA Class CLASS III- Severe systemic disease (i.e. prior AMI, diabetes with vascular complications, morbid obesity) csmith 07:38 PM Meet and greet completed [facility] 07:38 PM Sign in performed according to hospital policy. csmith 07:38 PM Procedure start 19:38 csmith 07:38 PM Time: 19:38 Oxygen on at 6 L/min per nasal cannula by Saud Mart RN csmith 07:38 PM Time out performed according to hospital policy csmith 07:38 PM Time: 19:38 14 ml Lidocaine 2% to right groin Subcutaneous Given by Bhavna De Jesus MD, [facility] csmith 07:39 PM HR=80 bpm, NIBP=99/80 mmhg, SpO2=90.0 %, Resp=20 B/min, Comment=Vpaced 07:39 PM NIBP STAT measurement started. 07:40 PM Time: 19:40 Patient comfortable and pain free: Yes csmith 07:40 PM Time: 19:40LOC: 5 = Fully awake and oriented or at pre-proc level csmith 07:40 PM HR=30 bpm, NHCJ=587/64 mmhg, SpO2=91.0 %, Resp=28 B/min, Comment=Vpaced 07:41 PM Access obtained by percutaneous puncture. 6Fr 11cm Cordis Goldie sheath placed in right Femoral vein. [id number] csmith 07:42 PM PstProc: Temp pacer on. csmith 07:42 PM PstProc:Bard Bipolar Pacing Catheter Temp pacer inserted into right femoral vein csmith 07:43 PM Recorded Pressure: Ao, HR=80, Condition=Condition 1 (Aorta) Ao -49/-49/-49 07:43 PM thresholds being checked csmith 07:44 PM HR=80 bpm, WELU=479/71 mmhg, SpO2=98.0 %, Resp=17 B/min, Comment=Vpaced 07:44 PM PstProc: Temp pacer turned on, rate 80 ppm, mA 4, sensitivity 2 csmith 07:44 PM PstProc: Sheath(s) sutured in due to Temporary Pacer. csmith 07:49 PM HR=79 bpm, ZPQF=752/63 mmhg, SpO2=98.0 %, Resp=19 B/min, Comment=Vpaced 07:54 PM HR=80 bpm, CMJY=377/62 mmhg, SpO2=99.0 %, Resp=13 B/min, Comment=Vpaced 07:56 PM Time: 19:40LOC: 5 = Fully awake and oriented or at pre-proc level csmith 07:56 PM Time: 19:40 Patient comfortable and pain free: Yes [facility] 07:56 PM Time: 19:56 16 ml Lidocaine 2% to right groin Subcutaneous Given by Bhavna De Jesus MD, [facility] csmith 07:57 PM Access obtained by percutaneous puncture. 5Fr 10cm Terumo [place] sheath placed in right Femoral artery. [id number] csmith 07:57 PM 5Fr FL 4 catheter inserted over the wire [facility] 07:58 PM Pressure channel 1 zeroed. 07:59 PM HR=79 bpm, PLVQ=669/57 mmhg, SpO2=98.0 %, Resp=22 B/min, Comment=Vpaced 07:59 PM Recorded Pressure: Ao, HR=80, Condition=Condition 1 (Aorta) Ao 84/53/65 07:59 PM LCA angiography performed in multiple views. csmith 08:00 PM Time: 20:00 Oxygen on at 4 L/min per nasal cannula by Saud Mart RN csmith 08:01 PM Catheter removed [facility] 08:02 PM 5Fr FR 4 [facility] PM RCA angiography performed in [place]. csmith 08:03 PM Catheter removed [facility] 08:03 PM Coronary Dominance: Left [facility] 08:03 PM 5Fr Pigtail catheter inserted over the wire [facility] 08:03 PM Catheter selectively placed in left ventricle csmith 08:03 PM Bolus angiogram of left Ventricle complete: 8 ml/sec for a total of 24 mls [facility] 08:03 PM Pressure channel 1 zeroed. 08:04 PM Recorded Pressure: LV, HR=86, Condition=Condition 1 (Left Ventricle) LV 84/14/24 08:04 PM Recorded Pressure: LV, HR=82, Condition=Condition 1 (Left Ventricle) LV 85/12/15 08:04 PM HR=96 bpm, NCZG=114/51 mmhg, SpO2=96.0 %, Resp=18 B/min, Comment=Vpaced 08:04 PM Recorded Pressure: LV, Ao, HR=80, Condition=Condition 1 (Left Ventricle) LV 93/26/34, (Aorta) Ao 86/51/68 08:04 PM Catheter removed [facility] 08:09 PM HR=80 bpm, BXFC=242/51 mmhg, SpO2=97.0 %, Resp=15 B/min, Comment=Vpaced 08:12 PM Time: 19:56 Patient comfortable and pain free: Yes csmith 08:12 PM Time: 19:56LOC: 5 = Fully awake and oriented or at pre-proc level csmith 08:13 PM Sheath exchanged for a 6 Fr 11 cm Cordis Goldie sheath [id number] csmith 08:13 PM 6Fr XB LAD 3.5 [place] Bright-Tip guide catheter was used to cannulate the PCI vessel successfully. reused? No csmith 08:14 PM Time: 20:13 Angiomax 0.75mg/kg bolus: 14 ml Intravenous Given by Saud Mart RN Hall pump csmith 08:14 PM Time: 20:14 Angiomax 1.75mg/kg/hr: 33 ml Intravenous Given by Saud Mart RN Hall pump csmith 08:14 PM HR=79 bpm, NCFP=505/54 mmhg, SpO2=96.0 %, Resp=17 B/min, Comment=Vpaced 08:14 PM Recorded Pressure: Ao, HR=71, Condition=Condition 1 (Aorta) Ao 74/41/55 08:14 PM NIBP STAT measurement started. 08:15 PM .014 Prowater 180cm guide wire across target lesion- successful. reused? No csmith 08:15 PM HR=80 bpm, QAVN=668/45 mmhg, SpO2=94.0 %, Resp=14 B/min, Comment=Vpaced 08:17 PM Acist Navvus FFR wire advanced to target lesion. csmith 08:19 PM HR=80 bpm, GVMN=249/51 mmhg, SpO2=96.0 %, Resp=33 B/min, Comment=Vpaced 08:20 PM Time: 20:20 Adenosine 150 mcg/kg/min Intravenous Given by Saud Mart RN Hall pump [facility] 08:21 PM NIBP STAT measurement started. 08:22 PM HR=81 bpm, VPVM=833/49 mmhg, SpO2=96.0 %, Resp=18 B/min, Comment=Vpaced 08:22 PM NIBP STAT measurement started. 08:23 PM HR=81 bpm, NIBP=91/44 mmhg, SpO2=97 %, Resp=18 B/min 08:23 PM Time: 20:23 Angiomax 0.75mg/kg bolus: off ml Intravenous Given by Saud Mart RN Hall pump [facility] 08:23 PM Flow Wire removed intact csmith 08:24 PM FFR Measurement: 0.82 [facility] 08:24 PM Guide wire removed intact. csmith 08:24 PM Guide catheter removed intact. csmith 08:24 PM Bolus angiogram of right Femoral complete: 2 ml/sec for a total of 4 mls csmith 08:25 PM Procedure completed at 20:25 csmith 08:25 PM HR=80 bpm, NIBP=95/46 mmhg, SpO2=98 %, Resp=25 B/min 08:26 PM Sign out completed: Radiation Dose 411.84 mGy Fluoro Time: 4.7 Isovue 370 - 200ml contrast 107 ml given by Bhavna De Jesus MD, [facility]. Complications: NoneCardiac Rehab Consult needed: NoConfirmed administered medications: Yes csmith 08:26 PM Isovue 370 - 200ml,1 Bottle(s) used. csmith 08:26 PM Arterial sheath pulled, Mynx closure device used and was Successful S/N. csmith 08:27 PM Estimated Blood Loss: minimal [facility] 08:27 PM Time: 20:12LOC: 5 = Fully awake and oriented or at pre-proc level csmith 08:27 PM Time: 20:12 Patient comfortable and pain free: Yes csmith 08:27 PM Post ECG Paced csmith 08:27 PM Post Blood Pressure 95/46 csmith 08:27 PM 20:27 Post Pulses Bilateral DP & PT 2+ csmith 08:27 PM Information taught Cardiac Cath and Temporary pacemaker csmith 08:29 PM HR=80 bpm, EKRH=044/50 mmhg, SpO2=93 %, Resp=21 B/min 08:33 PM Education needs Plan of Care, Disease Process, and Responsibilities of Patient in Care csmith 08:34 PM Learning barriers :None [facility] 08:34 PM Education Methods Verbal [facility] 08:34 PM Education evaluation Able to repeat information [facility] 08:34 PM Site status No bleeding/hematoma - Rt Groin as reported by Bev Scott RT (R) at 20:34 [facility] 08:34 PM Opsite applied csmith 08:34 PM HR=80 bpm, XFZD=327/52 mmhg, SpO2=94 %, Resp=20 B/min 08:34 PM Plavix, Effient or Brilinta given No csmith 08:35 PM Lesion found in Proximal LAD. Pre Stenosis: 50 csmith 08:35 PM Lesion found in Proximal RCA. Pre Stenosis: 25 csmith 08:36 PM Lesion found in Proximal Circumflex. Pre Stenosis: 20 csmith 08:36 PM Lesion found in Distal Circumflex. Pre Stenosis: 25 csmith 08:36 PM Proximal Left Anterior Descending Coronary Artery with 50% stenosis. csmith 08:37 PM Lesion found in Ramus. Pre Stenosis: 60 csmith 08:37 PM Mid/Distal Left Anterior Descending Coronary Artery and diagonal branches with 25% stenosis. csmith 08:38 PM Right Coronary, Right Posterior Descending Arteries with Right Posterolateral and Acute Marginal branches with 25 % stenosis. csmith 08:38 PM Ramus with 60% stenosis. csmith 08:40 PM Leach catheter 16Fr was inserted using sterile technique per Florence Cowan RN ejohnson 08:54 PM Report given to Wally GUZMAN Pt taken to E Room #4. 20:50 ejohnson 08:54 PM Delay to floor No ejohnson 08:55 PM Patient out of room: 20:54 ejohnson 08:55 PM Complications: None ejohnson Equipment Used Size Length Diameter Item Category Angio tray pack Other Cordis Goldie Pacing Catheter catheter Terumo [place] sheath Cordis Goldie sheath Britetip Guide catheter Hall pump Other PLC Systems Guidewire Prime Wire FFR Wire Diagnostic Isovue 370- 200ml Contrast Mynx Sealant Complications Complication None Hemodynamics Pressures Site Systolic/A Wave Diastolic/V Wave Mean AO -49 -49 -49 AO 84 53 65 LV 84 14 24 LV 85 12 15 LV 93 26 34 AO 86 51 68 AO 74 41 55 Post Procedure Information Blood Pressure: 95/46 mmHg Rhythm: Paced Post procedural instructions were given Closure Device Time Device Success/Fail 03/19/2017 8:27:00 PM MynxGrip Successful Site Checks Time Location Status Staff Sheath In? Note 08:34 PM Rt Groin No bleeding/hematoma Bev Scott RT (R) Pulses Time Site Pre-Procedure Post-Procedure Note 8:27:00 PM Bilateral DP & PT 2+ 03/19/2017 7:35:00 PM Bilateral DP & PT 2+ Updated by Yudy Almonte RN on 03/21/2017 1:14:29 PM Yudy Almonte RN electronically signed on 03/21/2017 1:14:57 PM with status of Final
--- NOTE | 2017-03-21 17:37 | Electrocardiograph Report ---
[address] [place], [place] [address] Test Date: 2017-03-19 Pat Name: Milan Lares Department: 102 Room: [facility] Gender: M Php Mag[employer] Developer: : 1970 Requested By: Bhavna De Jesus Order Number: [id number] Reading MD: Leland De Jesus Measurements Intervals [place] Rate: 32 P: HI: 0 QRS: 34 QRSD: 136 T: 67 QT: 545 QTc: 420 Interpretive Statements Complete heart block with ventricular escape rhythm Electronically Signed On 03-21-2017 17:35:34 EST by Leland De Jesus
--- NOTE | 2017-03-21 17:39 | Electrocardiograph Report ---
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
--- NOTE | 2017-03-21 17:39 | Electrocardiograph Report ---
[address] [place], [place] [address] Test Date: 2017-03-19 Pat Name: Milan Lares Department: 109 Room: 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
[2017-03-21] MEDS: Aspirin Enteric Coated 81 MG Tablet PO SCH (21:30)
[2017-03-22] MEDS: *HR* Morphine 2 MG/ML SYRINGE IVP PRN (04:54)
[2017-03-22 05:52] LABS: Basophils % 0.4 %; Eosinophils # 0.3 K/mcL (0.0-0.6); Eosinophils % 3.7 %; Hematocrit 36.6 % (37.5-50.1); Hemoglobin 12.4 g/dL (12.9-16.9); Immature Granulocytes % 0.6 % (0-4); Lymphocytes # 1.4 K/mcL (0.6-4.6); Lymphocytes % 16.4 %; Mean Corpuscular HGB Conc 33.9 g/dL (31.6-35.5); Mean Corpuscular Hemoglobin 31.6 pg (28.0-33.3); Mean Corpuscular Volume 93.1 fL (83.0-100.0); Mean Platelet Volume 10.5 fL (9.4-12.4); Monocytes # 0.8 K/mcL (0.0-1.3); Monocytes % 9.2 %; Neutrophils # 5.9 K/mcL (1.6-8.9); Platelet Count 131 K/mcL (140-400); Red Blood Count 3.93 M/mcL (4.19-5.50); Red Cell Distribution Width 12.9 % (11.5-14.5); Segmented Neutrophils % 69.7 %
[2017-03-22 05:56] LABS: Alanine Aminotransferase 12 Units/L (0-55); Albumin 3.1 g/dL (3.5-5.0); Albumin/Globulin Ratio 0.9 (1.1-2.2); Alkaline Phosphatase 56 Units/L (38-126); Aspartate Amino Transferase 19 Units/L (5-34); BUN/Creatinine Ratio 12 (6-26); Bilirubin,Total 1.1 mg/dL (0.2-1.2); Blood Urea Nitrogen 11 mg/dL (8-26); Calcium 8.9 mg/dL (8.6-10.8); Carbon Dioxide 24 mEq/L (19-29); Chloride 105 mEq/L (98-109); Globulin 3.5 g/dL (2.4-3.5); Glucose 96 mg/dL (70-99); Osmolality,Calculated 287 (280-300); Potassium 3.9 mEq/L (3.5-4.5); Sodium 139 mEq/L (136-145); Total Protein 6.6 g/dL (6.0-8.3); eGFR For African Americans > 60 (> 60); eGFR For Non-African Americans > 60 (> 60)
[2017-03-22] MEDS: Insulin LISPRO 300 UNITS/3 ML VIAL SQ SCH ×3 (07:48→15:35)
[2017-03-22] MEDS: *HR* Enoxaparin 40 MG/0.4 ML SYRINGE SQ SCH (07:52)
[2017-03-22] MEDS: Ondansetron 4 MG/2 ML VIAL IVP PRN (07:53)
[2017-03-22] MEDS: Multivit/Ca/Min/Fe/FA 1 TAB TABLET PO SCH (07:53)
[2017-03-22] MEDS: Cholecalciferol (D-3) 1,000 UNIT TABLET PO SCH (07:53)
[2017-03-22] MEDS ORDERED: *HR* Promethazine 25 MG/ML VIAL IVP PRN ×2 (10:25→18:34)
[2017-03-22] MEDS ORDERED: *HR* Promethazine 25 MG/ML VIAL ONE (10:28)
--- NOTE | 2017-03-22 11:51 | Internal Med Progress Note ---
<Chris Anthony - Last Filed: 03/22/17 11:53> Date of Encounter: 03/22/17 Time of Encounter: 08:00 - Assessment and plan (1) Nausea & vomiting Current Visit: Yes Status: Acute Assessment and plan: Nausea and vomiting- continues to have. Patient currently on Zofran and has received an occasional intermittent dose of Phenergan. - Symptoms likely secondary to third-degree heart block and arrhythmia. - CT scan of the head and abdomen without contrast Qualifiers: Vomiting type: cyclical vomiting Vomiting Intractability: intractable Qualified Code(s): G43.A1 - Cyclical vomiting, intractable (2) Complete heart block Current Visit: Yes Status: Acute Assessment and plan: 46-year-old male presents in symptomatic complete heart block requiring transvenous temporizing pacemaker. Cardiology following and managing with plans for pacemaker placement today. LHC performed demonstrating patent stents which is placed in 2008. - Echocardiogram demonstrates left ventricle ejection fraction 60%, normal left ventricular chamber size wall thickness and function. Mild left ventricular diastolic dysfunction. Atypical septal motion consistent with postoperative status. Normal right ventricular structure and function. No evidence of pulmonary hypertension, trivial pericardial effusion and a device lead was visualized in the right atrium the right ventricle. 03/22: Patient underwent pacemaker placement yesterday with, successful. monitoring coordinator demonstrates AV pacing at a heart rate 80. Patient tolerating. Plan: -Per cardiology. (3) Coronary artery disease Current Visit: Yes Status: Acute Assessment and plan: Known history of coronary artery disease, stent placed in 2008. Visualized on LH C and still patent. - Echocardiogram as discussed above. - Patient admitted with elevated troponins likely secondary to symptomatic bradycardia, and significantly elevated blood pressure the time of admission. - Lipid panel appropriate. Plan: - Continue optimizing cardiac medications with aspirin, rosuvastatin. Beta patrizia and lisinopril held at this time prior to procedure. Qualifiers: Coronary Disease-Associated Artery/Lesion type: [place] artery [place] vs. transplanted heart: [place] heart Associated angina: with unspecified angina Qualified Code(s): I25.119 - Atherosclerotic heart disease of [place] coronary artery with unspecified angina pectoris (4) History of coronary artery stent placement Current Visit: No Status: Chronic Assessment and plan: As discussed above. (5) Diabetes mellitus Current Visit: No Status: Chronic Assessment and plan: Known type II diabetic, well controlled. Hemoglobin A1c 5.2, glucose appropriate today.. Plan: - Nothing by mouth prior to procedure - Continue medium dose sliding scale insulin - Continue monitor glucose levels. Qualifiers: Diabetes mellitus type: type 2 Diabetes mellitus complication status: without complication Diabetes mellitus joint terminal attack controller insulin use: without detention use Qualified Code(s): E11.9 - Type 2 diabetes mellitus without complications (6) Hypertension Current Visit: Yes Status: Chronic Assessment and plan: Patient noted with significantly elevated blood pressure. Patient's blood pressure elevated at 150s systolically. - Restart lisinopril 10 mg home dose. Qualifiers: Hypertension type: essential hypertension Qualified Code(s): I10 - Essential (primary) hypertension - Subjective Interval history: Mr. Lares 46-year-old male is seen and evaluated patient bedside this morning. He is alert awake interactive denies any acute pain. He does have occasional nausea and vomiting, which had slightly increased compared to yesterday. He does continue to have a headache which she says is similar to his previous migraines he had 20 years ago. He denies any visual loss, difficulty with thought process, weakness in any of their his extremities or difficulty swallowing. He denies any chest pain, chest pressure, palpitations, abdominal pains, diarrhea but does have some constipation. He denies any new or acute changes overnight, he is tolerating his pacemaker. - Constitutional Vitals: Temp Pulse Resp BP Pulse Ox 98.1 F 79 14 149/52 96 03/22/17 07:23 03/22/17 08:00 03/22/17 08:00 03/22/17 08:00 03/22/17 09:30 General appearance: Present: A&O X 3 Exam: General: Patient alert, awake, oriented 3, interactive, in no acute distress HEENT: Normocephalic, atraumatic, pupils symmetric bilaterally reactive to light , visual regalado intact, scleral hemorrhaging bilaterally right greater than left. neck supple trachea midline no palpable lymphadenopathy, no thyromegaly. Chest: Symmetric bilateral correlating with respiratory effort, effort nonlabored. Cardiac: Regular rate and rhythm, positive S1 and S2. no bruits appreciated bilateral carotids, Radial pulses 2+ bilateral, posterior tibial and dorsal pedal pulses 2+ bilateral. Respiratory: Clear to auscultation all lung regalado Abdomen: Soft, nontender, positive bowel sounds, no palpable masses appreciated on examination Extremities: Symmetric bilateral, bilateral lower extremities without erythema or edema patient moving all 4 extremities spontaneously., Transvenous pacemaker in place. Neurologic: No focal deficits appreciated on examination. Face symmetric, muscle strength symmetric bilateral upper and lower extremities. Internal Medicine: Result - Labs CBC & Chem 7: 03/22/17 05:30 03/22/17 05:30 Labs: Short CBC 03/22/17 Range/Units 05:30 WBC 8.4 (4.3-11.1) K/mcL Hgb 12.4 L (12.9-16.9) g/dL Hct 36.6 L (37.5-50.1) % Plt Count 131 L (140-400) K/mcL Neutrophils # 5.9 (1.6-8.9) K/mcL BMP 03/22/17 05:30 Sodium 139 Potassium 3.9 Chloride 105 Carbon Dioxide 24 BUN 11 Creatinine 0.90 Glucose 96 Calcium 8.9 Liver Function 03/22/17 Range/Units 05:30 Total Bilirubin 1.1 (0.2-1.2) mg/dL AST 19 (5-34) Units/L ALT 12 (0-55) Units/L Alkaline Phosphatase 56 (38-126) Units/L Albumin 3.1 L (3.5-5.0) g/dL - ABG Interpretation ABG results: PT/INR, D-dimer PT 11.8 Seconds (9.4-12.1) 03/19/17 15:55 D-Dimer 628 ng/mLFEU (0-500) H 03/19/17 15:55 - Impressions Impressions Chest X-Ray 03/21/17 15:11 IMPRESSION: 1. Interval placement of a left chest wall pacer. No complication including pneumothorax. 2. Moderate pulmonary edema. 3. Cardiomegaly. 4. Elevation of the right hemidiaphragm. D/ / 03/21/2017 15:41:01 Annabel Sullivan MD / [facility] Interpreting Provider: Annabel Sullivan MD Chest X-Ray 03/22/17 06:00 IMPRESSION: Cardiac pacer present with leads in expected position. Low lung volumes with bibasilar atelectasis. Mild central pulmonary vascular congestion. No pneumothorax. D/ / Kodak Rogers MD / Kodak Rogers MD Interpreting Provider: Kodak Rogers MD Abdomen/Pelvis CT 03/22/17 08:06 IMPRESSION: 1. No acute abdominopelvic process demonstrated. Specifically, no evidence of hematoma 2. Colonic diverticulosis D/ / Eduard Newton MD / Eduard Newton MD Interpreting Provider: Eduard Newton MD Head CT 03/22/17 08:06 IMPRESSION: Stable negative CT brain with no acute intracranial abnormality. D/ / Maximo Collazo MD / Maximo Collazo MD Interpreting Provider: Maximo Collazo MD Consult Discharge Plan - Plan Referrals: Anthony Armstrong MD [Primary Care Provider] - <Boom Arrieta - Last Filed: 03/22/17 18:32> Date of Encounter: 03/22/17 - Assessment and plan (1) Nausea & vomiting Current Visit: Yes Status: Acute Qualifiers: Vomiting type: cyclical vomiting Vomiting Intractability: intractable Qualified Code(s): G43.A1 - Cyclical vomiting, intractable (2) Hypertension Current Visit: Yes Status: Chronic Qualifiers: Hypertension type: essential hypertension Qualified Code(s): I10 - Essential (primary) hypertension (3) Diabetes mellitus Current Visit: No Status: Chronic Qualifiers: Diabetes mellitus type: type 2 Diabetes mellitus complication status: without complication Diabetes mellitus detention insulin use: without joint terminal attack controller use Qualified Code(s): E11.9 - Type 2 diabetes mellitus without complications - Constitutional Vitals: Temp Pulse Resp BP Pulse Ox 98.0 F 70 16 123/64 92 03/22/17 15:46 03/22/17 14:00 03/22/17 14:00 03/22/17 14:00 03/22/17 14:00 Internal Medicine: Result - Labs CBC & Chem 7: 03/22/17 05:30 03/22/17 05:30 Labs: Short CBC 03/22/17 Range/Units 05:30 WBC 8.4 (4.3-11.1) K/mcL Hgb 12.4 L (12.9-16.9) g/dL Hct 36.6 L (37.5-50.1) % Plt Count 131 L (140-400) K/mcL Neutrophils # 5.9 (1.6-8.9) K/mcL BMP 03/22/17 05:30 Sodium 139 Potassium 3.9 Chloride 105 Carbon Dioxide 24 BUN 11 Creatinine 0.90 Glucose 96 Calcium 8.9 Liver Function 03/22/17 Range/Units 05:30 Total Bilirubin 1.1 (0.2-1.2) mg/dL AST 19 (5-34) Units/L ALT 12 (0-55) Units/L Alkaline Phosphatase 56 (38-126) Units/L Albumin 3.1 L (3.5-5.0) g/dL - ABG Interpretation ABG results: PT/INR, D-dimer PT 11.8 Seconds (9.4-12.1) 03/19/17 15:55 D-Dimer 628 ng/mLFEU (0-500) H 03/19/17 15:55 - Impressions Impressions Chest X-Ray 03/22/17 06:00 IMPRESSION: Cardiac pacer present with leads in expected position. Low lung volumes with bibasilar atelectasis. Mild central pulmonary vascular congestion. No pneumothorax. D/ / Kodak Rogers MD / Kodak Rogers MD Interpreting Provider: Kodak Rogers MD Abdomen/Pelvis CT 03/22/17 08:06 IMPRESSION: 1. No acute abdominopelvic process demonstrated. Specifically, no evidence of hematoma 2. Colonic diverticulosis D/ / Eduard Newton MD / Eduard Newton MD Interpreting Provider: Eduard Newton MD Head CT 03/22/17 08:06 IMPRESSION: Stable negative CT brain with no acute intracranial abnormality. D/ / Maximo Collazo MD / Maximo Collazo MD Interpreting Provider: Maximo Collazo MD - Attending Attestation I examined this patient and my medical decision-making was reviewed with the Resident Physician on 03/22/17. I agree with the documented findings, disposition and treatment plan as described except to the extent set forth below. Mr Lares is currently admitted for acute complete heart block. He has persistent cephalgia and nausea with vomiting. He remains moderate to high risk. Mr Lares persists with headache and pressure behind his eyes. BP has been elevated again. Repeat CT of head negative. No fever or chills. Still vomiting. Coughing as well. No abd pain, diarrhea Exam Alert. moderate distress due to pain in head Mucus membranes dry Heart reg No wheeze Abd soft and nontender No focal neuro deficit. I/P 1. Cephalgia - ? BP versus migraine 2. CHF s/p pacer Further diagnoses and plan as above.
--- NOTE | 2017-03-22 16:51 | Cardiology Progress Note ---
Date of Encounter: 03/22/17 Time of Encounter: 12:00 Assessment and Plan (1) Third degree heart block Current Visit: Yes Status: Acute Presented in CHB. He was not on AV diana blockers. S/p emergent TV pacer and LHC. TTE shows normal EF. LHC showed patent stents and moderate non-obstructive CAD. S/p dual chamber PPM. Patient has a [employer] percepta. Device rep coming in the morning to do re-peat device check. Not completed today due to our portable machine not being compatible with this device. Currently AV paced. CXR shows leads in place and no pnuemothorax. Activity restrictions reviewed with patient and . KANE dressing dry and intact. No redness or edema. Ok to step down to floor. Possible d/c in am if nausea improves. (2) Coronary artery disease Current Visit: Yes Status: Acute Slight troponin elevation which may be due to markedly elevated BP as well as CHB. LHC showed patent LAD stent. Moderate non-obstructive CAD. S/p PCI in 2008. Continue medical management with asa and statin. Restart beta-patrizia. No indication for cardiac rehab at this time. Qualifiers: Coronary Disease-Associated Artery/Lesion type: [place] artery [place] vs. transplanted heart: [place] heart Associated angina: with unspecified angina Qualified Code(s): I25.119 - Atherosclerotic heart disease of [place] coronary artery with unspecified angina pectoris (3) Diabetes mellitus Current Visit: No Status: Chronic The assessment and plan as outlined above was discussed with the patient and/or family members who expressed understanding and agreement. All questions were answered. Continue home meds. SSI. Qualifiers: Diabetes mellitus type: type 2 Diabetes mellitus complication status: without complication Diabetes mellitus liability claims adjuster insulin use: without assisted use Qualified Code(s): E11.9 - Type 2 diabetes mellitus without complications (4) Hypertension Current Visit: Yes Status: Chronic The assessment and plan as outlined above was discussed with the patient and/or family members who expressed understanding and agreement. All questions were answered. Noted to have intermittent elevated b/p. lisinopril and carvedilol restarted today. Low sodium diet. Qualifiers: Hypertension type: essential hypertension Qualified Code(s): I10 - Essential (primary) hypertension (5) Nausea Current Visit: Yes Status: Acute Continues to have nausea despite paced rhythm. Liver panel is ok. Normal amylase and lipase. Denies fevers or abdominal pain. Will continue to monitor. Continue zofran. Consulted hospitalist who are following. Appreciate recs. Discussed with Dr. Arrieta. CT abd and repeat CT head negative. Noted that symptoms correlate with elevated blood pressures. B/ p medication restarted. Possible migraine headaches. If symptoms do not improve consider neurology consult tomorrow. Discussion w patient/family: The assessment and plan as outlined above was discussed with the patient and/or family members who expressed understanding and agreement. All questions were answered. Thank you for involving us in the care of your patient. Please call with any questions. Subjective Principal diagnosis: complete heart block, nausea and vomiting. Interval history: Mr. Lares is s/p PPM. Nausea improved but continues to have intermittent headaches and nausea. Appreciate hospitalist recs. Objective Vital Signs, Last 4 Hours Temp Pulse Resp BP Pulse Ox 03/22/17 15:46 98.0 F 03/22/17 14:00 70 16 123/64 92 03/22/17 13:00 60 14 136/69 93 General: Conversant, Other (Grimacing, holding head, ) HEENT: Normocephaly, Mucus Membranes Moist, Other (Sclerra red. Orbital edema reduced.) Neck: No JVD, Normal carotid pulses Cardiac: Reg Rate and Rhythm, Normal S1 and S2, No Murmur, Other (AV paced) Lungs: Normal Breath Sounds, No Wheeze, Rales, Rhonchi Neuro: Alert and responsive, No focal deficits noted Abdomen: Soft, Non-Tender Skin: No rashes noted on visualized skin Musculoskeletal: No Chest Wall Tenderness Extremities: No Clubbing, No Cyanosis, No Edema, Normal Pulses Results 03/22/17 05:30 03/22/17 05:30 Lab Results 03/22/17 03/22/17 05:30 05:30 WBC 8.4 Hgb 12.4 L Hct 36.6 L Plt Count 131 L Sodium 139 Potassium 3.9 Chloride 105 Carbon Dioxide 24 BUN 11 Creatinine 0.90 Glucose 96 Calcium 8.9 Total Bilirubin 1.1 AST 19 ALT 12 Alkaline Phosphatase 56 - Imaging and Cardiology Echo: report reviewed Cardiac cath: report reviewed - EKG Interpretation EKG results cardiology: personally reviewed Consult Discharge Plan - Plan Referrals: Anthony Armstrong MD [Primary Care Provider] -
[2017-03-22] MEDS ORDERED: Nitroglycerin 0.4 MG TAB.SUBL SL PRN (18:34)
[2017-03-22] MEDS ORDERED: D5% in Water 1,000 ML IVC PRN (18:34)
[2017-03-22] MEDS ORDERED: Dextrose Gel 15 GM PO PRN ×2 (18:34)
[2017-03-22] MEDS ORDERED: *HR* Dextrose 50 % in Water (Syg) 50 ML SYRINGE IVP PRN (18:34)
[2017-03-22] MEDS ORDERED: *HR* Morphine 2 MG/ML SYRINGE IVP PRN (18:34)
[2017-03-22] MEDS ORDERED: Ondansetron 4 MG/2 ML VIAL IVP PRN (18:34)
[2017-03-22] MEDS ORDERED: Aspirin Enteric Coated 81 MG Tablet PO SCH (21:00)
[2017-03-23] MEDS ORDERED: *HR* Enoxaparin 40 MG/0.4 ML SYRINGE SQ SCH (07:00)
--- NOTE | 2017-03-23 08:16 | Internal Med Progress Note ---
<Chris Anthony - Last Filed: 03/23/17 15:17> Date of Encounter: 03/23/17 Time of Encounter: 08:13 - Assessment and plan (1) Nausea & vomiting Current Visit: Yes Status: Acute Assessment and plan: Nausea and vomiting- continues to have. Patient currently on Zofran and has received an occasional intermittent dose of Phenergan. - Symptoms likely secondary to third-degree heart block and arrhythmia, scleral hemorrhaging. - Stat CT of the brain and abdomen/pelvis yesterday were negative for any acute process. I reviewed the CT of the brain with radiology and did not appreciate any signs of bleeding or edema. Plan: - Start Topamax 25 mg by mouth daily - Depakote 250 mg by mouth once Qualifiers: Vomiting type: cyclical vomiting Vomiting Intractability: intractable Qualified Code(s): G43.A1 - Cyclical vomiting, intractable (2) Complete heart block Current Visit: Yes Status: Acute Assessment and plan: 46-year-old male presents in symptomatic complete heart block requiring transvenous temporizing pacemaker. Cardiology following and managing with plans for pacemaker placement today. LHC performed demonstrating patent stents which is placed in 2008. - Echocardiogram demonstrates left ventricle ejection fraction 60%, normal left ventricular chamber size wall thickness and function. Mild left ventricular diastolic dysfunction. Atypical septal motion consistent with postoperative status. Normal right ventricular structure and function. No evidence of pulmonary hypertension, trivial pericardial effusion and a device lead was visualized in the right atrium the right ventricle. 03/22: Patient underwent pacemaker placement 03/21/2017 which was successful. quality assurance monitor chassis demonstrates V pacing at a heart rate 80. Patient tolerating. 03/23: Patient tolerating pacemaker this morning, family questions about potential pacemaker interrogation today. Plan: -Per cardiology. (3) Coronary artery disease Current Visit: Yes Status: Acute Assessment and plan: Known history of coronary artery disease, stent placed in 2008. Visualized on LHC and still patent. - Echocardiogram as discussed above. - Patient admitted with elevated troponins likely secondary to symptomatic bradycardia, and significantly elevated blood pressure the time of admission. - Lipid panel appropriate. Plan: - Continue optimizing cardiac medications with aspirin, rosuvastatin, Coreg and lisinopril. Qualifiers: Coronary Disease-Associated Artery/Lesion type: [place] artery [place] vs. transplanted heart: wainwright heart Associated angina: with unspecified angina Qualified Code(s): I25.119 - Atherosclerotic heart disease of [place] coronary artery with unspecified angina pectoris (4) History of coronary artery stent placement Current Visit: No Status: Chronic Assessment and plan: As discussed above. (5) Diabetes mellitus Current Visit: No Status: Chronic Assessment and plan: Known type II diabetic, well controlled. Hemoglobin A1c 5.2, glucose appropriate today.. Plan: - Nothing by mouth prior to procedure - Continue medium dose sliding scale insulin - Continue monitor glucose levels. Qualifiers: Diabetes mellitus type: type 2 Diabetes mellitus complication status: without complication Diabetes mellitus correction insulin use: without intermediate accountant use Qualified Code(s): E11.9 - Type 2 diabetes mellitus without complications (6) Hypertension Current Visit: Yes Status: Chronic Assessment and plan: Patient noted with significantly elevated blood pressure. Patient's blood pressure appropriately controlled this morning. Patient requested blood pressure indication coronary helpless morning secondary to having a blood pressure in the 90s systolically last evening. - Currently taking lisinopril 10 mg by mouth daily - Patient requested holding Coreg 3.125 mg by mouth this morning. We will discuss beta patrizia choice with cardiology. Qualifiers: Hypertension type: essential hypertension Qualified Code(s): I10 - Essential (primary) hypertension - Subjective Interval history: Mr. Lares 46-year-old male is seen and evaluated patient bedside this morning. He is awake alert oriented sitting on the edge of the bed. He continues to have a headache which he says is behind his eyes and in his occipital region. The headache improves when he goes to sleep and worsens with light and when he wakes up in the morning. He has not had an episode of nausea and vomiting since yesterday, he has tolerated some food and he feels that his nausea and vomiting has been controlled with Phenergan. he is in good spirits this morning. He knows that he became hypotensive while on Coreg 3.125 mg. His was at bedside said that he had been on this previously and had hypotension and was discontinued from this medication. May raise the question regarding whether this can be changed or reduced in dose to prevent him from feeling faint. He has no further questions or concerns this morning. - Constitutional Vitals: Temp Pulse Resp BP Pulse Ox 98.0 F 62 14 125/74 90 03/23/17 06:24 03/23/17 06:24 03/23/17 06:24 03/23/17 06:24 03/23/17 06:24 General appearance: Present: A&O X 3 Exam: General: Patient alert, awake, oriented 3, interactive, in no acute distress HEENT: Normocephalic, atraumatic, pupils symmetric bilaterally reactive to light , visual regalado intact, scleral hemorrhaging bilaterally right greater than left. neck supple trachea midline no palpable lymphadenopathy, no thyromegaly. Chest: Symmetric bilateral correlating with respiratory effort, effort nonlabored. Cardiac: Regular rate and rhythm, positive S1 and S2. no bruits appreciated bilateral carotids, Radial pulses 2+ bilateral, posterior tibial and dorsal pedal pulses 2+ bilateral. Respiratory: Clear to auscultation all lung regalado Abdomen: Soft, nontender, positive bowel sounds, no palpable masses appreciated on examination Extremities: Symmetric bilateral, bilateral lower extremities without erythema or edema patient moving all 4 extremities spontaneously., Transvenous pacemaker in place. Neurologic: No focal deficits appreciated on examination. Face symmetric, muscle strength symmetric bilateral upper and lower extremities. Internal Medicine: Result - Labs CBC & Chem 7: 03/22/17 05:30 03/22/17 05:30 - ABG Interpretation ABG results: PT/INR, D-dimer PT 11.8 Seconds (9.4-12.1) 03/19/17 15:55 D-Dimer 628 ng/mLFEU (0-500) H 03/19/17 15:55 - Impressions Impressions Chest X-Ray 03/22/17 06:00 IMPRESSION: Cardiac pacer present with leads in expected position. Low lung volumes with bibasilar atelectasis. Mild central pulmonary vascular congestion. No pneumothorax. D/ / Kodak Rogers MD / Kodak Rogers MD Interpreting Provider: Kodak Rogers MD Abdomen/Pelvis CT 03/22/17 08:06 IMPRESSION: 1. No acute abdominopelvic process demonstrated. Specifically, no evidence of hematoma 2. Colonic diverticulosis D/ / Eduard Newton MD / Eduard Newton MD Interpreting Provider: Eduard Newton MD Head CT 03/22/17 08:06 IMPRESSION: Stable negative CT brain with no acute intracranial abnormality. D/ / Maximo Collazo MD / Maximo Collazo MD Interpreting Provider: Maximo Collazo MD Consult Discharge Plan - Plan Instructions: Left Heart Catheterization (DC), Right Heart Catheterization (DC) , Pacemaker (DC), Pacemaker (GEN), Diabetes Mellitus Type 2 in Adults (DC), Heart Block (DC), Heart Block (GEN) Additional Instructions: Follow-up with pacer clinic 7-10 days for wound check - 10:30 Follow-up with EP 4-6wks 01- 12:30 Monitor BP at home Follow-up with PCP within 1wk Referrals: Anthony Armstrong MD [Primary Care Provider] - 03/27/17 3:00 pm Prescriptions: Promethazine [Phenergan] 12.5 mg PO Q6HR #30 tablet Metoprolol [Lopressor] 25 mg PO BID #60 tablet Topiramate [Topamax] 25 mg PO DAILY PRN #7 tablet PRN Reason: Migraine Headache <Boom Arrieta - Last Filed: 03/23/17 17:25> Date of Encounter: 03/23/17 - Assessment and plan (1) Nausea & vomiting Current Visit: Yes Status: Acute Qualifiers: Vomiting type: cyclical vomiting Vomiting Intractability: intractable Qualified Code(s): G43.A1 - Cyclical vomiting, intractable (2) Hypertension Current Visit: Yes Status: Chronic Qualifiers: Hypertension type: essential hypertension Qualified Code(s): I10 - Essential (primary) hypertension (3) Diabetes mellitus Current Visit: No Status: Chronic Qualifiers: Diabetes mellitus type: type 2 Diabetes mellitus complication status: without complication Diabetes mellitus intermediate accountant insulin use: without intermediate accountant use Qualified Code(s): E11.9 - Type 2 diabetes mellitus without complications - Constitutional Vitals: Temp Pulse Resp BP Pulse Ox 97.6 F 64 14 132/67 92 03/23/17 15:21 03/23/17 15:21 03/23/17 15:21 03/23/17 15:21 03/23/17 15:21 Internal Medicine: Result - Labs CBC & Chem 7: 03/22/17 05:30 03/22/17 05:30 - ABG Interpretation ABG results: PT/INR, D-dimer PT 11.8 Seconds (9.4-12.1) 03/19/17 15:55 D-Dimer 628 ng/mLFEU (0-500) H 03/19/17 15:55 - Attending Attestation I examined this patient and my medical decision-making was reviewed with the Resident Physician on 03/23/17. I agree with the documented findings, disposition and treatment plan as described except to the extent set forth below. Mr Lares has had some improvement in nausea and vomiting but headache persists. Has prior hx of migraines. Exam Alert. Comfortable Mucus membranes dry Heart reg and paced Lungs no wheeze I/P 1. Cephalgia - most likely migraine. Started on Topamax. Follow with PCP. 2. CHB s/p pacer. OK to d/c home.
[2017-03-23] MEDS: Insulin LISPRO 300 UNITS/3 ML VIAL SQ SCH ×2 (08:23→12:26)
[2017-03-23] MEDS ORDERED: Multivit/Ca/Min/Fe/FA 1 TAB TABLET PO SCH (09:00)
[2017-03-23] MEDS ORDERED: Cholecalciferol (D-3) 1,000 UNIT TABLET PO SCH (09:00)
--- NOTE | 2017-03-23 09:37 | Discharge Summary ---
Date of Encounter: 03/23/17 Time of Encounter: 09:00 - Discharge Diagnosis (1) Third degree heart block Priority: Primary Status: Acute (2) Symptomatic bradycardia Priority: Secondary Status: Acute (3) Hypertension Priority: Secondary Status: Chronic Qualifiers: Hypertension type: essential hypertension Qualified Code(s): I10 - Essential (primary) hypertension (4) Nausea Priority: Secondary Status: Acute - Discharge Medications Prescriptions: Promethazine [Phenergan] 12.5 mg PO Q6HR #30 tablet Metoprolol [Lopressor] 25 mg PO BID #60 tablet Home Medications: Aspirin Enteric Coated [Aspirin EC] 81 mg PO DAILY 03/19/17 [History] Cholecalciferol (D-3) [Vitamin D] 1,000 unit PO DAILY 03/19/17 [History] Isosorbide MONOnitrate (24 HR) [Imdur] 30 mg PO DAILY 03/19/17 [History] Lisinopril [Zestril] 10 mg PO DAILY 03/19/17 [History] Multivitamin [One Daily Essential] 1 each PO DAILY 03/19/17 [History] Omeprazole [PriLOSEC] 20 mg PO BID 03/19/17 [History] Rosuvastatin Calcium 10 mg PO HS 03/19/17 [History] Sertraline [Zoloft] 50 mg PO DAILY 03/19/17 [History] Sitagliptin Phos/Metformin HCl [Janumet Xr 100-1,000 mg Tablet] 1 tab PO DAILY 03/19/17 [History] Acetaminophen [Tylenol] 500 mg PO Q6HR PRN tablet 03/23/17 [Rx] Metoprolol [Lopressor] 25 mg PO BID #60 tablet 03/23/17 [Rx] Promethazine [Phenergan] 12.5 mg PO Q6HR #30 tablet 03/23/17 [Rx] Allergies/Adverse Reactions: 3 Allergy/AdvReac Type Severity Reaction Status Date / Time No Known Allergies Allergy Verified 03/19/17 15:20 Procedures/tests Complete & Pending: Procedures Performed prior 72 hours Category Date Time Status CT abd pelvis wo no iv no oral [CT] Stat Cat Scan 03/22/17 08:[address] head/brain wo con [CT] Stat Cat Scan 03/22/17 08:06 Completed CL Insert Permanent Pacemaker [CL] Routine Upholstery Instructor 03/20/17 14:20 Ordered EV echocardiogram Routine Y 03/20/17 21:01 Completed Date of admission: 03/19/17 19:32 Primary care physician: Anthony Armstrong MD Consults: 03/19/17 21:01 Consult to Nurse Navigator [CONS] Routine Comment: 03/20/17 11:24 Consult to Hospitalist [CONS] Routine Consulting Provider: Hospitalist Nemo Reason for Consult: Persistant nausea and vomiting, DM Call Completed: Yes Discharging clinician: Marti Hammodns Anticipated date of discharge: 03/23/17 - Patient Status Disposition: Home, Self-Care Condition: Good Functional capacity at discharge: independent ambulation Overall status at discharge: patient is progressing back to baseline - Discharge Instructions Follow Up With: Anthony Armstrong MD [Primary Care Provider] - Forms: ED Satisfaction Letter Additional Instructions: Follow-up with pacer clinic 7-10 days for wound check Follow-up with EP 4-6wks Monitor BP at home Follow-up with PCP within 1wk - Diet and Activity Activity: increase activity as tolerated, resume usual activities as tolerated Diet: low salt diet, other (cardiac) - Hospital Course Hospital course: Mr. Lares is a 46 year old male with history of CAD status post PCI, DM, HTN present to the attending emergency department on 03/19 for evaluation of nausea and vomiting, with headache. The patient was experiencing some dyspnea on exertion climbing stairs, however he otherwise felt fine prior to this incident. The patient developed severe nausea vomiting, headache, and had developed Scleral hemorrhaging. in the ED the patient was found complete heart with HR in the 30s that was not improved with atropine. Transcutaneous pacing was initiated, and BiV pacemaker ([employer] Percepta) implanted by EP on 03/21 without complication. Patient's HR normalized in the 60's, pacer interrogation by [employer] rep on 03/23 demonstrates normal function. The patient continues to have N/V and headaches that are temporally associated with elevated BP, however the n/v has been controlled adequately with phenergan. Management of PICHARDO per hospitalist group, possible migraine treated with topamax. The patient's has requested to hold Coreg due to hypotension, we will switch patient to metoprolol BID. Follow-up outpatient. - Time Spent with Patient Total time spent providing and/or coordinating discharge services: Physical Examination Vital Signs, Last 4 Hours Temp Pulse Resp BP Pulse Ox 03/23/17 06:24 98.0 F 62 14 125/74 90 General: Conversant, No Apparent Distress HEENT: Atraumatic, Normocephaly, Mucus Membranes Moist, Other (b/l scleral hemorrhage ) Neck: No JVD, Normal carotid pulses Cardiac: Reg Rate and Rhythm, Normal S1 and S2, No Murmur Lungs: Normal Breath Sounds, No Wheeze, Rales, Rhonchi Neuro: Alert and responsive, No focal deficits noted Abdomen: Soft, Non-Tender Skin: No rashes noted on visualized skin Musculoskeletal: No Chest Wall Tenderness Extremities: No Clubbing, No Cyanosis, No Edema, Normal Pulses
[2017-03-23] MEDS ORDERED: Divalproex (12 HR) 250 MG TABLET PO ONE (11:07)
[2017-03-23 15:24] VITALS: BP 132/67
[2017-03-23] MEDS ORDERED: FLUARIX QUAD 2017-18 36MOS UP/PF 0.5 ML SYRINGE IM ONE (17:09)
== END 2017-03-23 17:46 | disposition home or self-care (01) | DRG 244 ==
LOC: EMEROO 15:07 → SUATTDRO 19:32 → ICNU 19:32 → 2NENU 03-22 20:26
PROVIDERS: ADMIT Internal Medicine Interventional Cardiology; ATTEND Internal Medicine Interventional Cardiology

== ENCOUNTER 2017-05-12 09:28 | Observation (INO) ==
[2017-05-12] MEDS ORDERED: Ondansetron 4 MG/2 ML VIAL IVP ONE (10:15)
[2017-05-12] MEDS ORDERED: *HR* Morphine 2 MG/ML SYRINGE IVP ONE (10:15)
[2017-05-12] MEDS ORDERED: 0.9 % Sodium Chloride 1,000 ML IVC ONE (10:15)
[2017-05-12 10:48] LABS: Basophils % 0.2 %; Eosinophils # 0.1 K/mcL (0.0-0.6); Eosinophils % 1.4 %; Hematocrit 45.3 % (37.5-50.1); Hemoglobin 15.4 g/dL (12.9-16.9); Immature Granulocytes % 0.4 % (0-4); Lymphocytes # 0.8 K/mcL (0.6-4.6); Lymphocytes % 10.4 %; Mean Corpuscular Hemoglobin 30.5 pg (28.0-33.3); Mean Corpuscular Volume 89.7 fL (83.0-100.0); Mean Platelet Volume 10.2 fL (9.4-12.4); Monocytes # 0.5 K/mcL (0.0-1.3); Monocytes % 6.1 %; Neutrophils # 6.6 K/mcL (1.6-8.9); Platelet Count 169 K/mcL (140-400); Red Blood Count 5.05 M/mcL (4.19-5.50); Red Cell Distribution Width 13.1 % (11.5-14.5); Segmented Neutrophils % 81.5 %
[2017-05-12] MEDS ORDERED: GI Cocktail 40 ML EACH PO ONE (10:58)
[2017-05-12 11:00] LABS: Bilirubin,Urine Negative (Negative); Blood,Urine Negative (Negative); Clarity,Urine Clear (Clear); Color,Urine Dark Yellow (Yellow); Glucose,Urine (UA) Normal (Normal); Ketones,Urine Negative (Negative); Leukocyte Esterase,Urine Negative (Negative); Nitrite,Urine Negative (Negative); Protein,Urine 30 mg/dL (Neg-Trace); Specific Gravity,Urine 1.027 (1.010-1.025); Urobilinogen,Urine Normal (Normal)
[2017-05-12 11:03] LABS: Bacteria,Urine None Seen per hpf (None-Few); Hyaline Casts,Urine None Seen per lpf (None-Few); Squamous Epithelial Cell,Urine Moderate per lpf (None-Few); WBC,Urine 0-3 per hpf (0-3)
[2017-05-12 11:06] LABS: Alanine Aminotransferase 20 Units/L (7-52); Albumin 4.3 g/dL (3.5-5.7); Albumin/Globulin Ratio 1.2 (1.1-2.2); Alkaline Phosphatase 66 Units/L (34-104); Amylase 68 Units/L (29-103); Aspartate Amino Transferase 24 Units/L (13-39); BUN/Creatinine Ratio 18 (6-26); Bilirubin,Direct 0.2 mg/dL (0.0-0.2); Bilirubin,Indirect 0.7 mg/dL (0.0-1.2); Bilirubin,Total 0.9 mg/dL (0.3-1.0); Blood Urea Nitrogen 23 mg/dL (6-20); Calcium 9.7 mg/dL (8.6-10.3); Carbon Dioxide 25 mEq/L (23-29); Chloride 104 mEq/L (98-107); Globulin 3.5 g/dL (2.4-3.5); Glucose 137 mg/dL (70-105); Lipase 48 Units/L (11-82); Osmolality,Calculated 286 (280-300); Potassium 4.3 mEq/L (3.5-5.1); Sodium 135 mEq/L (136-145); Total Protein 7.8 g/dL (6.4-8.9); eGFR For African Americans > 60 (> 60); eGFR For Non-African Americans 59 (> 60)
--- NOTE | 2017-05-12 11:47 | Emergency Department Note ---
Disposition Clinical Impression: Acalculous cholecystitis Disposition: Admitted As Inpatient Condition: Fair Prescriptions: Metoclopramide [Reglan] 10 mg PO Q6HR PRN #12 tablet PRN Reason: Nausea Referrals: Anthony Armstrong MD [Primary Care Provider] - Time of Disposition: 14:35 Abdominal Pain HPI - General Chief Complaint: ED Abdominal Pain Stated Complaint: Epigastric pain Time Seen by Provider: 05/12/17 09:51 Source: patient Mode of arrival: ambulatory Limitations: no limitations Nursing Notes Reviewed: Yes Vital Signs Reviewed: Yes - History of Present Illness HPI Narrative: Patient is a 46-year-old male with a past medical history of GERD hypertension, hyperlipidemia, CAD, NH with stent placement that presents the ED with chief complaint epigastric pain. Patient states he has had intermittent epigastric pain for the past year. States that over the past week the epigastric pain has become more persistent and he has not been able to keep down any food. Denies any fever, chills, bloody stools, chest pain, shortness of breath, diarrhea, or any other symptoms/complaints. States that he recently saw his PCP secondary to the epigastric to pain and his PCP told him to take his omeprazole twice a day. Patient states that he has been under extreme stress secondary to financial issues. He denies any history of peptic ulcer disease. States that he only socially drinks which is hardly and denies any drug or NSAID use. States that he has never been scoped. Pt Subjective Complaint: abdominal pain Consistency: constant Location: epigastric Pain Severity: moderate Pain Scale: 5 Quality: aching, fullness, dull Radiation: none Migration to: no migration Improves with: nothing Worsens with: nothing Associated symptoms: Reports: nausea, vomiting. Denies: diarrhea, fever, chills , constipation, dysuria, hematemesis, hematochezia, melena, hematuria, anorexia , syncope Treatments prior to arrival: none - Related Data Home Medications Medication Instructions Recorded Confirmed Aspirin Enteric Coated [Aspirin EC] 81 mg PO DAILY 03/19/17 03/19/17 Cholecalciferol (D-3) [Vitamin D] 1,000 unit PO DAILY 03/19/17 03/19/17 Isosorbide MONOnitrate (24 HR) 30 mg PO DAILY 03/19/17 03/19/17 [Imdur] Lisinopril [Zestril] 10 mg PO DAILY 03/19/17 03/19/17 Multivitamin [One Daily Essential] 1 each PO DAILY 03/19/17 03/19/17 Omeprazole [PriLOSEC] 20 mg PO BID 03/19/17 03/19/17 Rosuvastatin Calcium 10 mg PO HS 03/19/17 03/19/17 Sertraline [Zoloft] 50 mg PO DAILY 03/19/17 03/19/17 Sitagliptin Phos/Metformin HCl 1 tab PO DAILY 03/19/17 03/19/17 [Janumet Xr 100-1,000 mg Tablet] Previous Rx's Medication Instructions Recorded Acetaminophen [Tylenol] 500 mg PO Q6HR PRN tablet 03/23/17 Metoprolol [Lopressor] 25 mg PO BID #60 tablet 03/23/17 Promethazine [Phenergan] 12.5 mg PO Q6HR #30 tablet 03/23/17 Topiramate [Topamax] 25 mg PO DAILY PRN #7 tablet 03/23/17 Metoclopramide [Reglan] 10 mg PO Q6HR PRN #12 tablet 05/12/17 Allergies Allergy/AdvReac Type Severity Reaction Status Date / Time No Known Allergies Allergy Verified 05/12/17 09:58 All systems ED: reviewed and negative except as stated. Review of Systems: As Per HPI Constitutional: Denies: fever, chills, weakness Eyes: Denies: eye discharge ENT ED: Denies: congestion Cardiovascular: Denies: chest pain, palpitations, dyspnea on exertion, orthopnea , edema, syncope Respiratory: Denies: cough, dyspnea, wheezes, hemoptysis Gastrointestinal: Reports: abdominal pain, nausea, vomiting. Denies: diarrhea, constipation, hematemesis, melena, hematochezia Genitourinary: Denies: urgency, dysuria, frequency, hematuria Musculoskeletal: Denies: back pain, neck pain Integumentary: Denies: rash Neurological: Denies: headache, weakness Abdominal Pain PMH - Past Medical History Medical history: Reports: coronary artery disease, diabetes, hyperlipidemia, hypertension, myocardial infarction Male Surgical History: Reports: angioplasty/stent, pacemaker/AICD Psychiatric history: Reports: no psych history - Social History Smoking status: Never smoker Alcohol use: Reports: none Drug use: Reports: none Physical Exam - General Limitations: no limitations General appearance: alert - Head Head exam: atraumatic, normocephalic, normal inspection - Eye Eye exam: Present: normal appearance, PERRL, EOMI - ENT ENT exam: normal exam, normal oropharynx, mucous membranes moist - Neck Neck exam: Present: normal inspection, full ROM, trachea midline. Absent: tenderness, meningismus - Chest Chest inspection: Present: normal inspection, symmetric chest wall rise. Absent : tenderness - Respiratory Respiratory exam: Present: normal lung sounds bilaterally. Absent: respiratory distress, wheezes, stridor, accessory muscle use, prolonged expiratory phase - Cardiovascular Cardiovascular exam: Present: regular rate, normal rhythm, normal heart sounds - Abdominal Exam Abdominal exam: Present: soft, tenderness (Localized tenderness to epigastric region), normal bowel sounds. Absent: distention, guarding, rebound, rigidity, trauma, incision, Alvarez's sign, Rovsing's sign, tenderness at McBurney's Point , ascites, mass, pulsatile mass, hernia, scar - Extremities Exam Extremities exam: Present: normal inspection, full ROM. Absent: tenderness, pedal edema - Expanded Lower Extremity Exam Gait: observed and normal - Back Exam Back exam: Present: normal inspection, full ROM. Absent: tenderness, CVA tenderness (R), CVA tenderness (L) - Neurological Exam Neurological exam: Present: alert, oriented X3, CN II-XII intact - Psychiatric Psychiatric exam: Present: normal affect, normal mood - Skin Skin exam: Present: warm, dry, intact, normal color. Absent: rash, cyanosis, diaphoresis Course Course Narrative: Patient is a 46-year-old male with a past medical history of GERD hypertension, hyperlipidemia, CAD, NH with stent placement that presents the ED with chief complaint epigastric pain. Patient states he has had intermittent epigastric pain for the past year. States that over the past week the epigastric pain has become more persistent and he has not been able to keep down any food. Denies any fever, chills, bloody stools, chest pain, shortness of breath, diarrhea, or any other symptoms/complaints. States that he recently saw his PCP secondary to the epigastric to pain and his PCP told him to take his omeprazole twice a day. Patient states that he has been under extreme stress secondary to financial issues. He denies any history of peptic ulcer disease. States that he only socially drinks which is hardly and denies any drug or NSAID use. States that he has never been scoped. Patient is a very well/nontoxic appearing 46 old male. Vital stable. Afebrile. Alert and oriented 3. Appears in acute distress. Head normocephalic. Eyes normal inspection. ENT within normal limits. Neck supple , full range of motion, nontender. Heart RRR. Lungs CTAP. No wheezing, stridor, retractions or any signs of respiratory distress or compromise. Abdomen soft, localized tenderness in the epigastric region. No guarding or rebound noted. Normal bowel sounds. Back normal inspection, nontender. Extremities within normal limits. Neuro no focal neurological deficits noted on exam. Plan to obtains labs and EKG at this time. We will reevaluate. Labs unremarkable. EKG paced Patient given morphine and GI cocktail for pain. Patient given Zofran for nausea. Patient states that morphine or GI cocktail have not really helped his pain.. Plan to obtain CT of abdomen and pelvis. Discussed case with Dr. Velazquez. He had [id number] time with patient and agrees with my assessment and treatment plan. US shows Distended gallbladder, with gallbladder wall thickening. Gallbladder sludge. Findings are concerning for acalculous cholecystitis. If further imaging confirmation is clinically warranted, HIDA scan may be obtained. Dr. Ramirez paged plan to admit. Discussed case with Dr. Ramirez. She accepted patient. No other requests at this time. Patient stable to go to the floor. Patient does not want any additional pain medication at this time. Vital Signs Temperature 98.9 F 05/12/17 09:46 Pulse Rate 82 05/12/17 09:46 Respiratory Rate 18 05/12/17 09:46 Blood Pressure 128/85 05/12/17 09:46 O2 Sat by Pulse Oximetry 98 05/12/17 09:46 Temperature 98.9 F 05/12/17 09:46 Pulse Rate 76 05/12/17 14:05 Respiratory Rate 20 05/12/17 14:05 Blood Pressure 118/60 05/12/17 14:05 O2 Sat by Pulse Oximetry 95 05/12/17 14:05 Oxygen Delivery Oxygen Delivery Room Air Abdominal Pain - Medical Records Medical records reviewed: Yes I reviewed the patient's medical records. - Lab Data Lab results reviewed: Yes I reviewed the patient's lab results. Result diagrams: 05/12/17 10:30 05/12/17 10:30 Lab Results 05/12/17 05/12/17 05/12/17 Range/Units 10:30 10:30 10:30 WBC 8.1 (4.3-11.1) K/mcL RBC 5.05 (4.19-5.50) M/mcL Hgb 15.4 (12.9-16.9) g/dL Hct 45.3 (37.5-50.1) % MCV 89.7 (83.0-100.0) fL MCH 30.5 (28.0-33.3) pg MCHC 34.0 (31.6-35.5) g/dL RDW 13.1 (11.5-14.5) % Plt Count 169 (140-400) K/mcL MPV 10.2 (9.4-12.4) fL Immature Gran % 0.4 (0-4) % Seg Neutrophils % 81.5 % Lymphocytes % 10.4 % Monocytes % 6.1 % Eosinophils % 1.4 % Basophils % 0.2 % Neutrophils # 6.6 (1.6-8.9) K/mcL Lymphocytes # 0.8 (0.6-4.6) K/mcL Monocytes # 0.5 (0.0-1.3) K/mcL Eosinophils # 0.1 (0.0-0.6) K/mcL Basophils # 0.0 (0.0-0.2) K/mcL Sodium 135 L (136-145) mEq/L Potassium 4.3 (3.5-5.1) mEq/L Chloride 104 (98-107) mEq/L Carbon Dioxide 25 (23-29) mEq/L BUN 23 H (6-20) mg/dL Creatinine 1.30 (0.70-1.30) mg/dL Est GFR ( Amer) > 60 (> 60) Est GFR (Non-Af Amer) 59 L (> 60) BUN/Creatinine Ratio 18 (6-26) Glucose 137 H (70-105) mg/dL Calculated Osmolality 286 (280-300) Calcium 9.7 (8.6-10.3) mg/dL Total Bilirubin 0.9 (0.3-1.0) mg/dL Direct Bilirubin 0.2 (0.0-0.2) mg/dL Indirect Bilirubin 0.7 (0.0-1.2) mg/dL AST 24 (13-39) Units/L ALT 20 (7-52) Units/L Alkaline Phosphatase 66 (34-104) Units/L Troponin I < 0.03 (< 0.04) ng/mL Serum Total Protein 7.8 (6.4-8.9) g/dL Albumin 4.3 (3.5-5.7) g/dL Globulin 3.5 (2.4-3.5) g/dL Albumin/Globulin Ratio 1.2 (1.1-2.2) Amylase 68 (29-103) Units/L Lipase 48 (11-82) Units/L Urine Color (Yellow) Urine Clarity (Clear) Urine pH (5.0-8.0) pH Units Ur Specific [place] (1.010-1.025) Urine Protein (Neg-Trace) mg/dL Urine Glucose (UA) (Normal) mg/dL Urine Ketones (Negative) mg/dL Urine Blood (Negative) Urine Nitrite (Negative) Urine Bilirubin (Negative) Urine Urobilinogen (Normal) mg/dL Ur Leukocyte Esterase (Negative) Urine Microscopic RBC (0-3) per hpf Urine Microscopic WBC (0-3) per hpf Ur Squamous Epith Cells (None-Few) per lpf Urine Bacteria (None-Few) per hpf Hyaline Casts (None-Few) per lpf Ur Culture Indicated? (NO) 05/12/17 Range/Units 10:35 WBC (4.3-11.1) K/mcL RBC (4.19-5.50) M/mcL Hgb (12.9-16.9) g/dL Hct (37.5-50.1) % MCV (83.0-100.0) fL MCH (28.0-33.3) pg MCHC (31.6-35.5) g/dL RDW (11.5-14.5) % Plt Count (140-400) K/mcL MPV (9.4-12.4) fL Immature Gran % (0-4) % Seg Neutrophils % % Lymphocytes % % Monocytes % % Eosinophils % % Basophils % % Neutrophils # (1.6-8.9) K/mcL Lymphocytes # (0.6-4.6) K/mcL Monocytes # (0.0-1.3) K/mcL Eosinophils # (0.0-0.6) K/mcL Basophils # (0.0-0.2) K/mcL Sodium (136-145) mEq/L Potassium (3.5-5.1) mEq/L Chloride (98-107) mEq/L Carbon Dioxide (23-29) mEq/L BUN (6-20) mg/dL Creatinine (0.70-1.30) mg/dL Est GFR ( Amer) (> 60) Est GFR (Non-Af Amer) (> 60) BUN/Creatinine Ratio (6-26) Glucose (70-105) mg/dL Calculated Osmolality (280-300) Calcium (8.6-10.3) mg/dL Total Bilirubin (0.3-1.0) mg/dL Direct Bilirubin (0.0-0.2) mg/dL Indirect Bilirubin (0.0-1.2) mg/dL AST (13-39) Units/L ALT (7-52) Units/L Alkaline Phosphatase (34-104) Units/L Troponin I (< 0.04) ng/mL Serum Total Protein (6.4-8.9) g/dL Albumin (3.5-5.7) g/dL Globulin (2.4-3.5) g/dL Albumin/Globulin Ratio (1.1-2.2) Amylase (29-103) Units/L Lipase (11-82) Units/L Urine Color Dark Yellow (Yellow) Urine Clarity Clear (Clear) Urine pH 6.0 (5.0-8.0) pH Units Ur Specific [place] 1.027 H (1.010-1.025) Urine Protein 30 H (Neg-Trace) mg/dL Urine Glucose (UA) Normal (Normal) mg/dL Urine Ketones Negative (Negative) mg/dL Urine Blood Negative (Negative) Urine Nitrite Negative (Negative) Urine Bilirubin Negative (Negative) Urine Urobilinogen Normal (Normal) mg/dL Ur Leukocyte Esterase Negative (Negative) Urine Microscopic RBC 5-15 H (0-3) per hpf Urine Microscopic WBC 0-3 (0-3) per hpf Ur Squamous Epith Cells Moderate H (None-Few) per lpf Urine Bacteria None Seen (None-Few) per hpf Hyaline Casts None Seen (None-Few) per lpf Ur Culture Indicated? NO (NO) - Radiology Data Radiology results reviewed: Yes I reviewed the patient's radiology results. - EKG Data EKG attestation: Yes I reviewed and interpreted this EKG. EKG shows normal: sinus rhythm Rate: normal Rhythm: other (paced)
[2017-05-12] MEDS ORDERED: *HR* HYDROmorphone (PF) 1 MG/ML SYRINGE IM ONE (14:23)
--- NOTE | 2017-05-12 14:57 | General Surg History&Physical ---
<MagdalenoZoey Davion - Last Filed: 05/12/17 15:40> Date of Encounter: 05/12/17 Time of Encounter: 14:46 Assessment and Plan (1) Epigastric pain Current Visit: Yes Status: Acute The assessment and plan as outlined above was discussed with the patient and/or family members who expressed understanding and agreement. All questions were answered. Etiology unknown at this point. Gallbladder versus G.I. causes Plan: NPO, IV fluids HIDA scan in the a.m. repeat a.m. labs serial abdominal exams PRN G.I. cocktail to 6 hours PPI and Carafate discomfort management and supportive care consideration for upper and lower endoscopy pending clinical course (2) Nausea & vomiting Current Visit: No Status: Acute The assessment and plan as outlined above was discussed with the patient and/or family members who expressed understanding and agreement. All questions were answered. Cyclical vomiting vs reflux; further recommendations and work-up pending clinical course. See A/P above Qualifiers: Vomiting type: cyclical vomiting Vomiting Intractability: intractable Qualified Code(s): G43.A1 - Cyclical vomiting, intractable (3) Complete heart block Current Visit: No Status: Acute The assessment and plan as outlined above was discussed with the patient and/or family members who expressed understanding and agreement. All questions were answered. s/p biventricular permanent pacemaker placed 2016 cardiology consult it for cardiovascular management and preoperative risk stratification, spoke with Dr. Griffin. (4) History of coronary artery stent placement Current Visit: No Status: Chronic The assessment and plan as outlined above was discussed with the patient and/or family members who expressed understanding and agreement. All questions were answered. See above (5) Diabetes mellitus Current Visit: No Status: Chronic The assessment and plan as outlined above was discussed with the patient and/or family members who expressed understanding and agreement. All questions were answered. 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 Lares is a 46 year old male with a past medical history of AMI, ASHD s/p PCI , ischemic cardiomyopathy, most recent systolic ejection fraction 45% 06/2010, Biv PPM 03/2017 s/p complete heart block, DM 2, hyperlipidemia, anxiety, and obesity. His last colonoscopy was 5 years ago and notably his mother was diagnosed with colon cancer approximately 2 years after his colonoscopy. He states at the time of his colonoscopy he was directed to repeat the scan and approximately 10 years. He has not followed up after his mother's diagnosis. He denies any history of an EGD. He presented to the emergency department on 05/12/2017 with complaints of epigastric pain, vomiting, and fatigue. He reports a history of epigastric pain for the last one year. He states over the last 6 months it had gotten significantly worse, he saw his PCP and was placed on omeprazole twice daily. He reports that this initially helped however the last 3 days he has had almost constant epigastric pain, lack of appetite, vomiting approximately 4 to 6 hours after eating a meal and states he vomits undigested contents. He denies fevers or chills. He denies bright red blood or coffee ground emesis. He states he had diarrhea approximately 1 week ago and now states that he is having constipation. He denies black, bloody, or tarry stool. He denies difficulty urinating or urinary signs or symptoms. He denies headaches, dizziness, chest pain, shortness of breath, syncope, or near syncope. This hospital course thus far has included right upper quadrant ultrasound which revealed a distant gallbladder with gallbladder wall thickening and gallbladder sludge. He had a negative sonographic Alvarez's sign. He had a CT of the abdomen and pelvis without contrast which revealed no evidence of acute process, mild nonspecific gallbladder distention without visible cholelithiasis or deven cholecystectomy inflammatory changes. WB, amylase, lipase, and liver function area unremarkable. Past Med Surg Social Fam HX - Past Medical History Medical history: coronary artery disease, diabetes, hyperlipidemia, hypertension , myocardial infarction Psychiatric history: no psych history - Past Surgical History Surgical History: angioplasty/stent - Social History Smoking Status: Never smoker Smokeless Tobacco Status: No Alcohol use: none Drug use: none Medications and Allergies Aspirin Enteric Coated [Aspirin EC] 81 mg PO DAILY 03/19/17 [History] Cholecalciferol (D-3) [Vitamin D] 5,000 unit PO DAILY 03/19/17 [History] Lisinopril [Zestril] 10 mg PO DAILY 03/19/17 [History] Multivitamin [One Daily Essential] 1 each PO DAILY 03/19/17 [History] Omeprazole [PriLOSEC] 20 mg PO BID 03/19/17 [History] Rosuvastatin Calcium 10 mg PO HS 03/19/17 [History] Sertraline [Zoloft] 75 mg PO DAILY 03/19/17 [History] Metoprolol [Lopressor] 25 mg PO BID #60 tablet 03/23/17 [Rx] Linagliptin/Metformin HCl [Jentadueto Xr 5 mg-1,000 mg Tb] 1 tab PO DAILY [History] Lutein/Zeaxanthin [Ocuvite Lutein 25-5 mg Softgel] 1 each PO DAILY 05/12/17 [ History] Metoclopramide [Reglan] 10 mg PO Q6HR PRN #12 tablet 05/12/17 [Rx] Topiramate [Trokendi Xr] 50 mg PO DAILY 05/12/17 [History] Ubidecarenone [Co Q-10] 100 mg PO DAILY 05/12/17 [History] 3 Allergy/AdvReac Type Severity Reaction Status Date / Time No Known Allergies Allergy Verified 05/12/17 09:58 Review of Systems All systems PM: reviewed and no additional remarkable complaints except as stated All systems PM: A 10-system review of systems was performed and is negative for pertinent findings except as documented above in the HPI. General Surgery Exam Initial Vital Signs Temp Pulse Resp BP Pulse Ox 98.9 F 82 18 128/85 98 05/12/17 09:46 05/12/17 09:46 05/12/17 09:46 05/12/17 09:46 05/12/17 09:46 - General physical appearance well nourished, no distress, no pain - ENT normal mucosa, atraumatic, normocephalic - Neck trachea midline, no venous distension - Respiratory normal expansion, normal respiratory effort, clear to auscultation - Cardiovascular Cardiovascular exam: Present: RRR - Abdomen Abdomen general surgery: Present: bowel sounds present, soft, tender Abdominal Tenderness: Present: epigastic Hernia: Present: none - Integumentary Integumentary general surgery: Present: warm and dry, no abnormal pigmentation - Neurologic Present: CN 2-12 grossly intact, normal coordination, normal sensation - Musculoskeletal Present: normal gait, normal posture - Psychiatric Psychiatric general surgery: Present: A&Ox3, appropriate, oriented to person, oriented to place, oriented to time, speech is normal, memory intact Results - Labs 05/12/17 10:30 05/12/17 10:30 Abnormal lab results Sodium 135 mEq/L (136-145) L 05/12/17 10:30 BUN 23 mg/dL (6-20) H 05/12/17 10:30 Est GFR (Non-Af Amer) 59 (> 60) L 05/12/17 10:30 Glucose 137 mg/dL (70-105) H 05/12/17 10:30 Ur Specific [place] 1.027 (1.010-1.025) H 05/12/17 10:35 Urine Protein 30 mg/dL (Neg-Trace) H 05/12/17 10:35 Urine Microscopic RBC 5-15 per hpf (0-3) H 05/12/17 10:35 Ur Squamous Epith Cells Moderate per lpf (None-Few) H 05/12/17 10:35 Diabetes panel 05/12/17 Range/Units 10:30 Sodium 135 L (136-145) mEq/L Potassium 4.3 (3.5-5.1) mEq/L Chloride 104 (98-107) mEq/L Carbon Dioxide 25 (23-29) mEq/L BUN 23 H (6-20) mg/dL Creatinine 1.30 (0.70-1.30) mg/dL Glucose 137 H (70-105) mg/dL Calcium 9.7 (8.6-10.3) mg/dL AST 24 (13-39) Units/L ALT 20 (7-52) Units/L Alkaline Phosphatase 66 (34-104) Units/L Albumin 4.3 (3.5-5.7) g/dL Calcium panel 05/12/17 Range/Units 10:30 Calcium 9.7 (8.6-10.3) mg/dL Albumin 4.3 (3.5-5.7) g/dL Pituitary panel 05/12/17 Range/Units 10:30 Sodium 135 L (136-145) mEq/L Potassium 4.3 (3.5-5.1) mEq/L Chloride 104 (98-107) mEq/L Carbon Dioxide 25 (23-29) mEq/L BUN 23 H (6-20) mg/dL Creatinine 1.30 (0.70-1.30) mg/dL Glucose 137 H (70-105) mg/dL Calcium 9.7 (8.6-10.3) mg/dL Adrenal panel 05/12/17 Range/Units 10:30 Sodium 135 L (136-145) mEq/L Potassium 4.3 (3.5-5.1) mEq/L Chloride 104 (98-107) mEq/L Carbon Dioxide 25 (23-29) mEq/L BUN 23 H (6-20) mg/dL Creatinine 1.30 (0.70-1.30) mg/dL Glucose 137 H (70-105) mg/dL Calcium 9.7 (8.6-10.3) mg/dL Total Bilirubin 0.9 (0.3-1.0) mg/dL AST 24 (13-39) Units/L ALT 20 (7-52) Units/L Alkaline Phosphatase 66 (34-104) Units/L Albumin 4.3 (3.5-5.7) g/dL All other labs normal. - Imaging Additional studies: Abdomen/Pelvis CT 05/12/17 11:50 IMPRESSION: 1. No evidence of acute process in the abdomen or pelvis. 2. Mild nonspecific gallbladder distention without visible cholelithiasis or pericholecystic inflammatory change. If desired, this could be further evaluated with ultrasound. D/ / 05/12/2017 13:22:54 Mandi Dominguez / Princess Baker Interpreting Provider: Mandi Dominguez Gallbladder Ultrasound 05/12/17 13:29 IMPRESSION: Distended gallbladder, with gallbladder wall thickening. Gallbladder sludge. Findings are concerning for acalculous cholecystitis. If further imaging confirmation is clinically warranted, HIDA scan may be obtained. Negative sonographic Alvarez's sign. D/ / 05/12/2017 14:12:45 Delroy Corral MD / dre Interpreting Provider: Delroy Corral MD <Sofie Ramirez - Last Filed: 05/13/17 16:05> Date of Encounter: 05/12/17 Assessment and Plan (1) Pacemaker Current Visit: Yes Status: Acute The assessment and plan as outlined above was discussed with the patient and/or family members who expressed understanding and agreement. All questions were answered. (2) Abdominal pain Current Visit: Yes Status: Chronic The assessment and plan as outlined above was discussed with the patient and/or family members who expressed understanding and agreement. All questions were answered. patients symptoms do sound like they are gallbladder related but US without stones, will admit and order HIDA npo ivf hydration prn pain control gi/dvt prophylaxis ambulate Qualifiers: Abdominal location: right upper quadrant Qualified Code(s): R10.11 - Right upper quadrant pain (3) Nausea & vomiting Current Visit: No Status: Acute The assessment and plan as outlined above was discussed with the patient and/or family members who expressed understanding and agreement. All questions were answered. prn antiemetics Qualifiers: Vomiting type: cyclical vomiting Vomiting Intractability: intractable Qualified Code(s): G43.A1 - Cyclical vomiting, intractable (4) Third degree heart block Current Visit: No Status: Chronic The assessment and plan as outlined above was discussed with the patient and/or family members who expressed understanding and agreement. All questions were answered. pacemaker (5) Diabetes mellitus Current Visit: No Status: Chronic The assessment and plan as outlined above was discussed with the patient and/or family members who expressed understanding and agreement. All questions were answered. well controlled, npo, q6 hr MBS, SSI Qualifiers: Diabetes mellitus type: type 2 Diabetes mellitus complication status: without complication Diabetes mellitus long-term insulin use: without long-term use Qualified Code(s): E11.9 - Type 2 diabetes mellitus without complications (6) Hypertension Current Visit: No Status: Chronic The assessment and plan as outlined above was discussed with the patient and/or family members who expressed understanding and agreement. All questions were answered. ok to continue home medication Qualifiers: Hypertension type: essential hypertension Qualified Code(s): I10 - Essential (primary) hypertension History of Present Illness HPI: Mr. Lares is a 46 year old male who has been having what he describes as epigastric discomfort on and off for years. He thought it was related to nerves and anxiety. He has been having nausea and emesis with the episodes. 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 He has complained of recently having emesis in which the contents were undigested food from the day before. In the the last week his pain has become more right upper quadrant, no radiation to the shoulder or back. The pain is constant and sharp. He has been having nonstop nausea and emesis sometimes. he has had diarrhea several days last week. He went to his PCP who doubled his omeprazole but that hasnt changed his symptoms. He does have a history of heartburn and reflux but states these symptoms are not the same. He presented to the ED yesterday and CT scan was done showing "The gallbladder is mildly distended. No visible cholelithiasis or pericholecystic inflammatory change. No intrahepatic or extrahepatic biliary dilatation." An US of the gallbladder was then done showing "Distended gallbladder, with gallbladder wall thickening. Gallbladder sludge." Patient had a colonoscopy due to constipation at 39 yoa , no pathology or polpys were found. Patients mother was diagnosed with colon cancer at 72 yrs of age. Past Med Surg Social Fam HX - Past Medical History Source: patient Medical history: other (pacemaker/3rd degree heart block) - Past Surgical History Surgical History: pacemaker - Social History Occupational status: employed Current living situation: Home, With Family Review of Systems All systems PM: reviewed and no additional remarkable complaints except as stated All systems PM: A 10-system review of systems was performed and is negative for pertinent findings except as documented above in the HPI. General Surgery Exam Initial Vital Signs Temp Pulse Resp BP Pulse Ox 98.9 F 82 18 128/85 98 05/12/17 09:46 05/12/17 09:46 05/12/17 09:46 05/12/17 09:46 05/12/17 09:46 - General physical appearance well developed, well nourished, no distress, moderate pain - Eyes PERRL, normal ocular movement - ENT normal mucosa, normocephalic - Neck trachea midline - Respiratory normal expansion, clear to auscultation - Cardiovascular Cardiovascular exam: Present: RRR - Abdomen Abdomen general surgery: Present: bowel sounds present, soft, tender. Absent: distended, guarding, rebound Abdominal Tenderness: Present: epigastic, RUQ - Integumentary Integumentary general surgery: Present: warm and dry, no abnormal pigmentation - Neurologic Present: CN 2-12 grossly intact, normal coordination, normal sensation - Musculoskeletal Present: normal posture - Psychiatric Psychiatric general surgery: Present: A&Ox3, speech is normal Results - Labs 05/13/17 03:30 05/13/17 03:30 Abnormal lab results Sodium 135 mEq/L (136-145) L 05/12/17 10:30 BUN 23 mg/dL (6-20) H 05/12/17 10:30 Est GFR (Non-Af Amer) 59 (> 60) L 05/12/17 10:30 Glucose 137 mg/dL (70-105) H 05/12/17 10:30 Ur Specific [place] 1.027 (1.010-1.025) H 05/12/17 10:35 Urine Protein 30 mg/dL (Neg-Trace) H 05/12/17 10:35 Urine Microscopic RBC 5-15 per hpf (0-3) H 05/12/17 10:35 Ur Squamous Epith Cells Moderate per lpf (None-Few) H 05/12/17 10:35 All other labs normal. - Imaging CT scan - abdomen: report reviewed, image reviewed CT scan - pelvis: report reviewed, image reviewed US - abdomen: report reviewed - Attending Attestation I have personally performed a face to face evaluation on this patient. I have reviewed and agree with the care plan. History and Exam by me shows:
--- NOTE | 2017-05-12 17:14 | Electrocardiograph Report ---
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
[2017-05-12] MEDS ORDERED: Dextrose Gel 15 GM/37.5 ML TUBE PO PRN ×2 (18:55)
[2017-05-12] MEDS ORDERED: Naloxone 0.4 MG/ML INJ IVP PRN (18:55)
[2017-05-12] MEDS ORDERED: Ondansetron 4 MG/2 ML VIAL IVP PRN (18:55)
[2017-05-12] MEDS ORDERED: D5% in Water 1,000 ML IVC PRN (18:55)
[2017-05-12] MEDS ORDERED: GI Cocktail 40 ML EACH PO PRN (18:55)
[2017-05-12] MEDS ORDERED: *HR* Promethazine 25 MG/ML VIAL IVP PRN (18:55)
[2017-05-12] MEDS ORDERED: *HR* Metoprolol 5 MG/5 ML VIAL IVP PRN (18:55)
[2017-05-12] MEDS ORDERED: *HR* Dextrose 50 % in Water (Syg) 50 ML SYRINGE IVP PRN (18:55)
[2017-05-12] MEDS: 0.9 % Sodium Chloride 1,000 ML IVC SCH (20:05)
[2017-05-12] MEDS: Sucralfate 1 GM TABLET PO SCH ×2 (20:05→22:57)
[2017-05-12] MEDS: Pantoprazole 40 MG VIAL IVP SCH (20:06)
[2017-05-12] MEDS: Insulin LISPRO 300 UNITS/3 ML VIAL SQ SCH ×2 (20:48→23:58)
[2017-05-12] MEDS: *HR* Morphine 2 MG/ML SYRINGE IVP PRN (22:56)
[2017-05-13 04:02] LABS: Basophils % 0.2 %; Eosinophils # 0.2 K/mcL (0.0-0.6); Eosinophils % 1.8 %; Hematocrit 36.8 % (37.5-50.1); Hemoglobin 12.7 g/dL (12.9-16.9); Immature Granulocytes % 0.3 % (0-4); Lymphocytes # 1.4 K/mcL (0.6-4.6); Mean Corpuscular HGB Conc 34.5 g/dL (31.6-35.5); Mean Corpuscular Hemoglobin 31.4 pg (28.0-33.3); Mean Corpuscular Volume 90.9 fL (83.0-100.0); Mean Platelet Volume 10.4 fL (9.4-12.4); Monocytes % 11.3 %; Neutrophils # 6.2 K/mcL (1.6-8.9); Platelet Count 138 K/mcL (140-400); Red Blood Count 4.05 M/mcL (4.19-5.50); Red Cell Distribution Width 13.1 % (11.5-14.5); Segmented Neutrophils % 70.4 %
[2017-05-13 04:30] LABS: Alanine Aminotransferase 14 Units/L (7-52); Albumin 3.8 g/dL (3.5-5.7); Albumin/Globulin Ratio 1.5 (1.1-2.2); Alkaline Phosphatase 57 Units/L (34-104); Aspartate Amino Transferase 18 Units/L (13-39); BUN/Creatinine Ratio 15 (6-26); Bilirubin,Direct 0.2 mg/dL (0.0-0.2); Bilirubin,Indirect 0.7 mg/dL (0.0-1.2); Bilirubin,Total 0.9 mg/dL (0.3-1.0); Blood Urea Nitrogen 17 mg/dL (6-20); Calcium 8.6 mg/dL (8.6-10.3); Carbon Dioxide 25 mEq/L (23-29); Chloride 107 mEq/L (98-107); Globulin 2.6 g/dL (2.4-3.5); Glucose 106 mg/dL (70-105); Osmolality,Calculated 286 (280-300); Potassium 3.8 mEq/L (3.5-5.1); Sodium 137 mEq/L (136-145); Total Protein 6.4 g/dL (6.4-8.9); eGFR For African Americans > 60 (> 60); eGFR For Non-African Americans > 60 (> 60)
[2017-05-13] MEDS: *HR* Morphine 2 MG/ML SYRINGE IVP PRN ×3 (04:56→17:03)
[2017-05-13] MEDS: 0.9 % Sodium Chloride 1,000 ML IVC SCH ×2 (05:05→17:05)
[2017-05-13 06:53] LABS: INR 1.2; Prothrombin Time 12.8 Seconds (9.4-12.1)
[2017-05-13] MEDS: Insulin LISPRO 300 UNITS/3 ML VIAL SQ SCH ×3 (07:00→19:57)
[2017-05-13] MEDS: Pantoprazole 40 MG VIAL IVP SCH ×2 (08:00→21:05)
[2017-05-13] MEDS: Sucralfate 1 GM TABLET PO SCH ×4 (08:00→21:05)
[2017-05-13] MEDS ORDERED: Isosorbide MONOnitrate (24 HR) 30 MG TAB.ER.24H PO SCH (09:00)
--- NOTE | 2017-05-13 09:01 | General Surgery Progress Note ---
<Raissa Venegas - Last Filed: 05/13/17 15:15> Date of Encounter: 05/13/17 Time of Encounter: 09:00 - Assessment and Plan (1) Biliary dyskinesia Current Visit: Yes Status: Acute Abdominal pain HIDA scan Impression: Decreased gallbladder ejection fraction measuring 19% ; finding which can be seen with biliary dyskinesia. (2) Complete heart block Current Visit: No Status: Acute Cardiology consulted. 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: without snf use Qualified Code(s): E11.9 - Type 2 diabetes mellitus without complications (5) Nausea & vomiting Current Visit: No Status: Acute Qualifiers: Vomiting type: cyclical vomiting Vomiting Intractability: intractable Qualified Code(s): G43.A1 - Cyclical vomiting, intractable (6) DVT prophylaxis Current Visit: Yes Status: Acute Objective Vital Signs - Last 8 Hours Temp Pulse Resp BP Pulse Ox 05/13/17 08:00 98.4 F 83 16 93/50 95 05/13/17 04:54 99.0 F 81 15 130/71 96 Intake and Output 05/12/17 05/13/17 05/13/17 23:59 07:59 15:59 Intake Total 60 / 60 1000 / 1000 0 / 0 Output Total 400 / 400 0 / 0 Balance 60 / 60 600 / 600 0 / 0 Intake: IV Fluids 1000 / 1000 0.9 % Sodium Chloride 1,000 ML 1000 / 1000 @ 120 mls/hr IVC .Q8H20M [facility] Rx #:[id number] Oral 60 / 60 0 / 0 Output: Urine 400 / 400 0 / 0 Other: # Voids 1 Weight 92.079 kg 92.261 kg Blood Glucose* 91 109 Patient Weight 05/13/17 23:59 Weight 92.261 kg - Labs 05/13/17 03:30 05/13/17 03:30 Diabetes panel 05/13/17 Range/Units 03:30 Sodium 137 (136-145) mEq/L Potassium 3.8 (3.5-5.1) mEq/L Chloride 107 (98-107) mEq/L Carbon Dioxide 25 (23-29) mEq/L BUN 17 (6-20) mg/dL Creatinine 1.13 (0.70-1.30) mg/dL Glucose 106 H (70-105) mg/dL Calcium 8.6 (8.6-10.3) mg/dL AST 18 (13-39) Units/L ALT 14 (7-52) Units/L Alkaline Phosphatase 57 (34-104) Units/L Albumin 3.8 (3.5-5.7) g/dL Calcium panel 05/13/17 Range/Units 03:30 Calcium 8.6 (8.6-10.3) mg/dL Albumin 3.8 (3.5-5.7) g/dL Pituitary panel 05/13/17 Range/Units 03:30 Sodium 137 (136-145) mEq/L Potassium 3.8 (3.5-5.1) mEq/L Chloride 107 (98-107) mEq/L Carbon Dioxide 25 (23-29) mEq/L BUN 17 (6-20) mg/dL Creatinine 1.13 (0.70-1.30) mg/dL Glucose 106 H (70-105) mg/dL Calcium 8.6 (8.6-10.3) mg/dL Adrenal panel 05/13/17 Range/Units 03:30 Sodium 137 (136-145) mEq/L Potassium 3.8 (3.5-5.1) mEq/L Chloride 107 (98-107) mEq/L Carbon Dioxide 25 (23-29) mEq/L BUN 17 (6-20) mg/dL Creatinine 1.13 (0.70-1.30) mg/dL Glucose 106 H (70-105) mg/dL Calcium 8.6 (8.6-10.3) mg/dL Total Bilirubin 0.9 (0.3-1.0) mg/dL AST 18 (13-39) Units/L ALT 14 (7-52) Units/L Alkaline Phosphatase 57 (34-104) Units/L Albumin 3.8 (3.5-5.7) g/dL Consult Discharge Plan - Plan Referrals: Anthony Armstrong MD [Primary Care Provider] - <Sofie Ramirez - Last Filed: 05/13/17 16:10> Date of Encounter: 05/13/17 Time of Encounter: 16:00 - Assessment and Plan (1) Pacemaker Current Visit: Yes Status: Acute (2) Nausea & vomiting Current Visit: No Status: Acute Qualifiers: Vomiting type: cyclical vomiting Vomiting Intractability: intractable Qualified Code(s): G43.A1 - Cyclical vomiting, intractable (3) Third degree heart block Current Visit: No Status: Chronic pacemaker patient had heart cath in march 2017 with patient reports 60% EF patent coronary stent (4) Diabetes mellitus Current Visit: No Status: Chronic continue npo, ivf hydration q6 mbs checks, SSI Qualifiers: Diabetes mellitus type: type 2 Diabetes mellitus complication status: without complication Diabetes mellitus snf insulin use: without 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 Will plan laparoscopic cholecystectomy, possible cholangiograms, possible open, risks and benefits discussed and he wishes to proceed, surgery within next 24 hrs continue npo prn pain control gi/dvt prophylaxis ambulate IS Subjective Patient reports: still having pain, flatus, no bowel movement, nausea, afebrile Objective Intake and Output 05/13/17 05/13/17 05/13/17 07:59 15:59 23:59 Intake Total 1000 / 1000 0 / 0 Output Total 400 / 400 250 / 250 Balance 600 / 600 -250 / -250 Intake: IV Fluids 1000 / 1000 0.9 % Sodium Chloride 1,000 ML 1000 / 1000 @ 120 mls/hr IVC .Q8H20M [facility] Rx #:[id number] Oral 0 / 0 Output: Urine 400 / 400 250 / 250 Other: Meal NPO Weight 92.261 kg Blood Glucose* 109 99 Patient Weight 05/13/17 23:59 Weight 92.261 kg - General physical appearance well developed, well nourished, no distress, moderate pain - Eyes PERRL, normal ocular movement - ENT normal mucosa, normocephalic - Neck Neck exam: trachea midline - Respiratory normal expansion, clear to auscultation - Cardiovascular Cardiovascular exam: Present: RRR - Abdomen Abdomen: Present: bowel sounds present, soft, tender. Absent: guarding, rebound Abdominal Tenderness: RUQ - Integumentary no rash, no growths - Neurologic CN 2-12 grossly intact, normal coordination - Musculoskeletal normal posture - Psychiatric oriented to time, oriented to person, oriented to place, speech is normal, memory intact - Labs 05/13/17 03:30 05/13/17 03:30 Diabetes panel 05/13/17 Range/Units 03:30 Sodium 137 (136-145) mEq/L Potassium 3.8 (3.5-5.1) mEq/L Chloride 107 (98-107) mEq/L Carbon Dioxide 25 (23-29) mEq/L BUN 17 (6-20) mg/dL Creatinine 1.13 (0.70-1.30) mg/dL Glucose 106 H (70-105) mg/dL Calcium 8.6 (8.6-10.3) mg/dL AST 18 (13-39) Units/L ALT 14 (7-52) Units/L Alkaline Phosphatase 57 (34-104) Units/L Albumin 3.8 (3.5-5.7) g/dL Calcium panel 05/13/17 Range/Units 03:30 Calcium 8.6 (8.6-10.3) mg/dL Albumin 3.8 (3.5-5.7) g/dL Pituitary panel 05/13/17 Range/Units 03:30 Sodium 137 (136-145) mEq/L Potassium 3.8 (3.5-5.1) mEq/L Chloride 107 (98-107) mEq/L Carbon Dioxide 25 (23-29) mEq/L BUN 17 (6-20) mg/dL Creatinine 1.13 (0.70-1.30) mg/dL Glucose 106 H (70-105) mg/dL Calcium 8.6 (8.6-10.3) mg/dL Adrenal panel 05/13/17 Range/Units 03:30 Sodium 137 (136-145) mEq/L Potassium 3.8 (3.5-5.1) mEq/L Chloride 107 (98-107) mEq/L Carbon Dioxide 25 (23-29) mEq/L BUN 17 (6-20) mg/dL Creatinine 1.13 (0.70-1.30) mg/dL Glucose 106 H (70-105) mg/dL Calcium 8.6 (8.6-10.3) mg/dL Total Bilirubin 0.9 (0.3-1.0) mg/dL AST 18 (13-39) Units/L ALT 14 (7-52) Units/L Alkaline Phosphatase 57 (34-104) Units/L Albumin 3.8 (3.5-5.7) g/dL - Imaging Additional Studies: HIDA done today shows EF 19% consistent with biliary dyskinesia. Additionally, although he was already having RUQ the pain increased in his mid upper abdomen and he then also had back pain.
--- NOTE | 2017-05-13 19:34 | Anesthesia Evaluation PreOp ---
Date of Encounter: 05/13/17 Time of Encounter: 23:23 - Past History Planned Operation: [facility] [place] Cardiac History: [place], HTN, Hyperlipidemia, Cardiac Stent (04/02), Pacemaker/ICD ( Interogated today) Pulmonary History: Denies Any Significant HX EMERGENCY ROOM RN History: Denies Any Significant HX Other Medical History: Diabetes Type II Anesthesia History: No Prior Anesthetic Complications, Past Anesthesia ( angioplasty/stent) Alcohol Use: occasionally Drug use: none Medications and Allergies Aspirin Enteric Coated [Aspirin EC] 81 mg PO DAILY 03/19/17 [History] Cholecalciferol (D-3) [Vitamin D] 5,000 unit PO DAILY 03/19/17 [History] Lisinopril [Zestril] 10 mg PO DAILY 03/19/17 [History] Multivitamin [One Daily Essential] 1 each PO DAILY 03/19/17 [History] Omeprazole [PriLOSEC] 20 mg PO BID 03/19/17 [History] Rosuvastatin Calcium 10 mg PO HS 03/19/17 [History] Sertraline [Zoloft] 75 mg PO DAILY 03/19/17 [History] Metoprolol [Lopressor] 25 mg PO BID #60 tablet 03/23/17 [Rx] Linagliptin/Metformin HCl [Jentadueto Xr 5 mg-1,000 mg Tb] 1 tab PO DAILY [History] Lutein/Zeaxanthin [Ocuvite Lutein 25-5 mg Softgel] 1 each PO DAILY 05/12/17 [ History] Metoclopramide [Reglan] 10 mg PO Q6HR PRN #12 tablet 05/12/17 [Rx] Topiramate [Trokendi Xr] 50 mg PO DAILY 05/12/17 [History] Ubidecarenone [Co Q-10] 100 mg PO DAILY 05/12/17 [History] 3 Allergy/AdvReac Type Severity Reaction Status Date / Time No Known Allergies Allergy Verified 05/12/17 09:58 - Meds/Allergy Pre-op Review Medications Reviewed: Yes Allergies Reviewed: Yes Beta Blockers on Current Med List: Yes If Beta Blockers taken, Date/Time (Last Dose taken): 05/13/2017 @08:00 Anesthesia Results - Labs 05/13/17 03:30 05/13/17 03:30 Echocardiogram Name: Milan Lares Date of Study: 03/20/2017 Impressions: LVEF 60%. Normal LV chamber size, wall thickness and function. Mild left ventricular diastolic dysfunction. Atypical septal motion consistent with post-operative status. Normal right ventricular structure and function. No evidence of pulmonary hypertension. There is a trivial pericardial effusion present. A device lead was visualized in the right atrium and right ventricle. - Imaging EKG: report reviewed (ELECTRONIC VENTRICULAR PACEMAKER ABNORMAL RHYTHM ECG) Anesthesia Exam Vital Signs/O2 Sat, Most Current Temp Pulse Resp BP Pulse Ox 98.9 F 75 14 103/58 95 05/13/17 15:12 05/13/17 15:12 05/13/17 15:12 05/13/17 15:12 05/13/17 15:12 Blood glucose: 72 NPO (# of Hours): > 8 hrs Pain Scale: 0 Pain Scale Used: Numeric (1 - 10) - HEENT Pupil (Motor): Pupils equal, EOMI Mallampati: III Teeth: Normal Oral Opening: Greater than 3 - EMERGENCY ROOM RN LOC: Oriented EMERGENCY ROOM RN Motor: Normal RUE, Normal LUE, Normal RLE, Normal LLE, Normal Face EMERGENCY ROOM RN Sensory: Normal: RUE, LUE, RLE, LLE, Face - Cardiac Rhythm: Regular Murmur: None JVD: No Carotid Bruit: No - Pulmonary Breath Sounds: bilateral Clear Respiratory Effort: Symmetrical Anesthesia Assess/Plan ASA Score: 3 Modified [place] Scale for Level of Consciousness: Cooperative, oriented, and tranquil Anesthetic Plan: General Autologous Blood: Yes Monitoring Plan: Standard Monitors Recovery Plan: PACU
[2017-05-13] MEDS ORDERED: *HR* Propofol 200 MG/20 ML VIAL IVP ONE (22:35)
[2017-05-13] MEDS ORDERED: *HR* Midazolam HCl 2 MG/2 ML VIAL ONE (22:35)
[2017-05-13] MEDS ORDERED: *HR* FentaNYL (PF) 100 MCG/2 ML VIAL ONE (22:35)
[2017-05-13] MEDS ORDERED: *HR* Rocuronium Bromide 50 MG/5 ML VIAL ONE (22:36)
[2017-05-13] MEDS ORDERED: Lidocaine -MPF 2% 2 ML VIAL ONE (22:36)
[2017-05-13] MEDS ORDERED: Ondansetron 4 MG/2 ML VIAL ONE (22:36)
[2017-05-13] MEDS ORDERED: Dexamethasone 4 MG/ML VIAL ONE (22:36)
[2017-05-13] MEDS ORDERED: *HR* Succinylcholine 200 MG/10 ML VIAL IVP ONE (22:36)
[2017-05-13] MEDS ORDERED: Scopolamine Patch 1.5 MG PATCH.TD72 ONE (23:22)
[2017-05-13] MEDS ORDERED: Ondansetron 4 MG/2 ML VIAL IVP ONE (23:24)
[2017-05-13] MEDS ORDERED: *HR* Labetalol 20 MG/4 ML SYRINGE IVP PRN (23:24)
[2017-05-13] MEDS ORDERED: *HR* HYDROmorphone (PF) 1 MG/ML SYRINGE IVP PRN (23:24)
[2017-05-13] MEDS ORDERED: *HR* PHENYLEPHRINE 1,000 MCG/10 ML SYRINGE IVP ONE (23:30)
--- NOTE | 2017-05-14 01:12 | Operative Note ---
Date of procedure: 05/13/17 Pre-op diagnosis: biliary dyskinesia Post-op diagnosis: other (acute cholecystitis) Procedure: Laparoscopic cholecystectomy Complications: none immediate Anesthesia: GETA, local Local Anesthetics: 0.5% Sensorcaine HCL SubQ (cc) (30) Surgeon: Sofie Ramirez Was there an certified dental assistant present: No Estimated blood loss (cc): 40 Specimen: gallbladder Condition: stable Disposition: PACU Procedure in Detail: The patient was brought into the operating suite and placed supine on the operating table. Sign-in was performed and everyone was in agreement. Anesthesia was induced and patient was endotracheally intubated by anesthesia without incident and they also placed an OG tube. The abdomen was prepped and draped in the usual sterile fashion. A timeout was performed again everyone was in agreement. A supraumbilical incision was made through the skin into the subcutaneous tissue with an 11 blade. Towel clamps were placed on either side of the umbilicus for retraction. S retractors were used to dissect down to the anterior abdominal wall linea alba fascia. A Veress needle was placed through this incision and a water drop test confirmed placement and the abdomen was insufflated. The abdomen was entered with a 5 mm 0 degree laparoscope on a 5 mm X-jessica trocar. The area and entry was visualized was no bleeding and no apparent bowel injury. A 5 mm subxiphoid port was placed under direct visualization after first incising the skin with an 11 blade. A right upper quadrant subcostal position midclavicular line 5 mm port was placed under direct visualization after first incising skin with 11 blade. The laparoscope was placed in this and we exchanged the supraumbilical port for a 12 mm port under direct visualization. The last 5 mm port was placed in the right upper quadrant subcostal position anterior axillary line after first incising the skin with an 11 blade. The patient was placed in steep reverse Trendelenburg left side down position. The dome of the gallbladder was grasped and retracted cephalad. Omental adhesions to the body and infundibulum of the gallbladder were taken down bluntly with the [place]. The infundibulum was grasped and retracted laterally. Using the [place] we dissected out the cystic duct and cystic artery. Three 5 mm hemoclips were placed distally on the cystic duct one proximally and it was transected with curved scissors. The cystic artery was doubly clipped proximally, once distally and transected with curved scissors. The gallbladder was removed off the cystic plate with the Bovie. Any bleeding points were stopped with the Bovie. The gallbladder was placed in a laparoscopic Endo Catch bag and removed via the supraumbilical incision site. The inferior edge of the liver was bluntly retracted cephalad and the cystic plate was copiously irrigated with sterile saline. The cystic plate was a little oozing and the bleeding was stopped with cautery. There was a little bit of bleeding from the omentum where it was dissected bluntly off the gallbladder this was also stopped with the Bovie. A 4 x 8" Surgicel was placed into the abdominal cavity and laid across the omentum and into the gallbladder fossa. A 10 mm EDNA drain was placed into the abdomen along the underside of the liver and along the cystic plate overlying the portal triad. The EDNA drain was secured to the skin with a 2-0 silk stitch. All irrigation was suctioned free from the abdomen. All insufflation was suctioned free from the abdomen and the ports removed. The abdominal wall at the supraumbilical incision site was closed with a 0 Vicryl [id number] stitch. 30 mL of 0.5% Marcaine was injected subcutaneously at the 4 port sites. The skin at the two 5 mm port sites were closed with 4-0 Monocryl interrupted subcuticular stitches. The skin at the supraumbilical incision site was closed with a 4-0 Monocryl running subcuticular stitch. Steri-Strips were applied to all wounds. The patient was awoken in the operating suite having tolerated the procedure well and were taken to PACU in stable condition after all lap and ensuring counts were correct at the end of the case.
--- NOTE | 2017-05-14 01:42 | Anesthesia Evaluation Post Op ---
Date of Encounter: 05/14/17 Time of Encounter: 01:42 - Vital Signs Vital Signs: Vital Signs/O2 Sat, Most Current Temp Pulse Resp BP Pulse Ox 97 F L 87 20 127/68 96 05/14/17 01:12 05/14/17 01:32 05/14/17 01:32 05/14/17 01:32 05/14/17 01:32 - Lungs Lungs: Clear Ascult./Percussion - Airway Airway: Non-obstructed - Cardiovascular Regular Rate - Mental Status Mental Status: Alert & Oriented, Answers Appropriately - Pain Pain Scale: 0 Pain Scale used: Numeric (1 - 10) - Nausea Vomiting Nausea Vomiting: Not Present - Hydration Hydration: NPO, Has not voided - Discharge PostOp Status: Transfer Patient to floor
[2017-05-14] MEDS: *HR* Morphine 2 MG/ML SYRINGE IVP PRN (02:35)
[2017-05-14] MEDS ORDERED: Naloxone 0.4 MG/ML INJ IVP PRN (07:27)
[2017-05-14] MEDS ORDERED: Ondansetron 4 MG/2 ML VIAL IVP PRN (07:27)
[2017-05-14] MEDS ORDERED: D5% in Water 1,000 ML IVC PRN (07:27)
[2017-05-14] MEDS ORDERED: *HR* Morphine 2 MG/ML SYRINGE IVP PRN (07:27)
[2017-05-14] MEDS ORDERED: 0.9 % Sodium Chloride 1,000 ML IVC SCH (07:27)
[2017-05-14] MEDS ORDERED: *HR* Labetalol 20 MG/4 ML SYRINGE IVP PRN (07:27)
[2017-05-14] MEDS ORDERED: *HR* Metoprolol 5 MG/5 ML VIAL IVP PRN (07:27)
[2017-05-14] MEDS ORDERED: *HR* OxyCODONE/APAP 5/325 TABLET PO PRN (07:27)
[2017-05-14] MEDS ORDERED: Dextrose Gel 15 GM/37.5 ML TUBE PO PRN ×2 (07:27)
[2017-05-14] MEDS ORDERED: *HR* Promethazine 25 MG/ML VIAL IVP PRN (07:27)
[2017-05-14] MEDS ORDERED: *HR* Dextrose 50 % in Water (Syg) 50 ML SYRINGE IVP PRN (07:27)
[2017-05-14 07:45] LABS: Albumin 3.6 g/dL (3.5-5.7); Albumin/Globulin Ratio 1.3 (1.1-2.2); Bilirubin,Direct 0.3 mg/dL (0.0-0.2); Bilirubin,Indirect 0.5 mg/dL (0.0-1.2); Bilirubin,Total 0.8 mg/dL (0.3-1.0); Globulin 2.7 g/dL (2.4-3.5); Total Protein 6.3 g/dL (6.4-8.9)
[2017-05-14 07:46] LABS: BUN/Creatinine Ratio 18 (6-26); Blood Urea Nitrogen 22 mg/dL (6-20); Calcium 8.5 mg/dL (8.6-10.3); Carbon Dioxide 16 mEq/L (23-29); Chloride 107 mEq/L (98-107); Glucose 123 mg/dL (70-105); Osmolality,Calculated 287 (280-300); Potassium 4.5 mEq/L (3.5-5.1); Sodium 136 mEq/L (136-145); eGFR For African Americans > 60 (> 60); eGFR For Non-African Americans > 60 (> 60)
[2017-05-14 07:52] LABS: Basophils % 0.1 %; Eosinophils % 0.1 %; Hematocrit 35.5 % (37.5-50.1); Immature Granulocytes % 0.4 % (0-4); Lymphocytes # 0.7 K/mcL (0.6-4.6); Lymphocytes % 10.1 %; Mean Corpuscular HGB Conc 33.8 g/dL (31.6-35.5); Mean Corpuscular Hemoglobin 31.1 pg (28.0-33.3); Mean Platelet Volume 10.3 fL (9.4-12.4); Monocytes # 0.2 K/mcL (0.0-1.3); Monocytes % 2.5 %; Neutrophils # 5.8 K/mcL (1.6-8.9); Platelet Count 118 K/mcL (140-400); Red Blood Count 3.86 M/mcL (4.19-5.50); Segmented Neutrophils % 86.8 %
[2017-05-14] MEDS ORDERED: Pantoprazole 40 MG VIAL IVP SCH (09:00)
[2017-05-14] MEDS ORDERED: Isosorbide MONOnitrate (24 HR) 30 MG TAB.ER.24H PO SCH (09:00)
--- NOTE | 2017-05-14 11:32 | Discharge Summary ---
Date of Encounter: 05/14/17 Time of Encounter: 11:29 - Discharge Diagnosis (1) Pacemaker Priority: Secondary Status: Acute (2) Nausea & vomiting Priority: Secondary Status: Acute Qualifiers: Vomiting type: cyclical vomiting Vomiting Intractability: intractable Qualified Code(s): G43.A1 - Cyclical vomiting, intractable (3) Third degree heart block Priority: Secondary Status: Chronic (4) Diabetes mellitus Priority: Secondary Status: Chronic Qualifiers: Diabetes mellitus type: type 2 Diabetes mellitus complication status: without complication Diabetes mellitus assisted insulin use: without assisted use Qualified Code(s): E11.9 - Type 2 diabetes mellitus without complications (5) Hypertension Priority: Secondary Status: Chronic Qualifiers: Hypertension type: essential hypertension Qualified Code(s): I10 - Essential (primary) hypertension (6) Acute cholecystitis without calculus Priority: Primary Status: Acute - Discharge Medications Prescriptions: OxyCODONE/APAP 5/325 [Percocet 5/325 MG] 1 each PO Q4HR PRN #30 tablet PRN Reason: Pain Docusate [Colace] 100 mg PO BID #30 capsule Home Medications: Aspirin Enteric Coated [Aspirin EC] 81 mg PO DAILY 03/19/17 [History] Cholecalciferol (D-3) [Vitamin D] 5,000 unit PO DAILY 03/19/17 [History] Lisinopril [Zestril] 10 mg PO DAILY 03/19/17 [History] Multivitamin [One Daily Essential] 1 each PO DAILY 03/19/17 [History] Omeprazole [PriLOSEC] 20 mg PO BID 03/19/17 [History] Rosuvastatin Calcium 10 mg PO HS 03/19/17 [History] Sertraline [Zoloft] 75 mg PO DAILY 03/19/17 [History] Metoprolol [Lopressor] 25 mg PO BID #60 tablet 03/23/17 [Rx] Linagliptin/Metformin HCl [Jentadueto Xr 5 mg-1,000 mg Tb] 1 tab PO DAILY [History] Lutein/Zeaxanthin [Ocuvite Lutein 25-5 mg Softgel] 1 each PO DAILY 05/12/17 [ History] Metoclopramide [Reglan] 10 mg PO Q6HR PRN #12 tablet 05/12/17 [Rx] Topiramate [Trokendi Xr] 50 mg PO DAILY 05/12/17 [History] Ubidecarenone [Co Q-10] 100 mg PO DAILY 05/12/17 [History] Docusate [Colace] 100 mg PO BID #30 capsule 05/14/17 [Rx] OxyCODONE/APAP 5/325 [Percocet 5/325 MG] 1 each PO Q4HR PRN #30 tablet 05/14/17 [Rx] Allergies/Adverse Reactions: 3 Allergy/AdvReac Type Severity Reaction Status Date / Time No Known Allergies Allergy Verified 05/12/17 09:58 General Surgery Exam Initial Vital Signs Temp Pulse Resp BP Pulse Ox 98.9 F 82 18 128/85 98 05/12/17 09:46 05/12/17 09:46 05/12/17 09:46 05/12/17 09:46 05/12/17 09:46 - General physical appearance well nourished, no distress, moderate pain - Eyes PERRL, normal ocular movement - ENT normal mucosa, normocephalic - Neck trachea midline - Respiratory normal expansion, normal respiratory effort - Cardiovascular Cardiovascular exam: Present: RRR - Abdomen Abdomen general surgery: Present: bowel sounds present, soft, tender ( appropriate post op tenderness) - Incision Incision: Present: clean and dry, intact - Integumentary Integumentary general surgery: Present: warm and dry - Neurologic Present: CN 2-12 grossly intact, normal coordination - Musculoskeletal Present: normal gait, normal posture - Psychiatric Psychiatric general surgery: Present: A&Ox3, speech is normal Date of admission: 05/12/17 17:50 Primary care physician: Anthony Armstrong MD Discharging clinician: Sofie Ramirez Anticipated date of discharge: 05/14/17 - Patient Status Disposition: Home, Self-Care Condition: Fair Overall status at discharge: patient is progressing back to baseline - Discharge Instructions Instructions: Laparoscopic Cholecystectomy (DC) Follow Up With: Anhtony Armstrong MD [Primary Care Provider] - Zoey Dolan CNP [Advanced Practice Nurse] - 05/19/17 (please call office for appt with zoey dolan this coming monday to have drain removed) Forms: ED Satisfaction Letter, Work/School Release Additional Instructions: no lifting more than 20 lbs for 2 weeks[address] until off narcotics for 24 hrs and able to react safely ok to shower, no tub baths or pools for 2 weeks ok to use ice pack to abdomen for pain, on 20 minutes off 20 minutes ok to ride in vehicle and climb steps - Diet and Activity Activity: increase activity as tolerated Diet: diabetic diet - Hospital Course Hospital course: Mr. Lares is a 46 year old male admitted with abdominal pain and nausea and emesis. He had CT and US showing dilated thickened walled galllbladder with normal labs (lft, cbc). He underwent a HIDA with an EF of 19% and symptoms consistent with biliary dyskinesia. He underwent a laparoscopic cholecystectomy and acute cholecystisis was diagnosed. He was started on clears and advanced to diabetic diet post op. Pain controlled with po medications. - Time Spent with Patient Total time spent providing and/or coordinating discharge services: Less than 30 minutes Labs on day of discharge: Labs from last 24 hours 05/14/17 05/14/17 05/14/17 06:50 06:50 06:50 WBC 6.7 RBC 3.86 L Hgb 12.0 L Hct 35.5 L MCV 92.0 MCH 31.1 MCHC 33.8 RDW 13.0 Plt Count 118 L MPV 10.3 Immature Gran % 0.4 Seg Neutrophils % 86.8 Lymphocytes % 10.1 Monocytes % 2.5 Eosinophils % 0.1 Basophils % 0.1 Neutrophils # 5.8 Lymphocytes # 0.7 Monocytes # 0.2 Eosinophils # 0.0 Basophils # 0.0 Sodium 136 Potassium 4.5 Chloride 107 Carbon Dioxide 16 L BUN 22 H Creatinine 1.23 Est GFR ( Amer) > 60 Est GFR (Non-Af Amer) > 60 BUN/Creatinine Ratio 18 Glucose 123 H POC Glucose Calculated Osmolality 287 Calcium 8.5 L Total Bilirubin 0.8 Direct Bilirubin 0.3 H Indirect Bilirubin 0.5 AST 51 H ALT 37 Alkaline Phosphatase 55 Serum Total Protein 6.3 L Albumin 3.6 Globulin 2.7 Albumin/Globulin Ratio 1.3 05/14/17 05/13/17 06:03 12:34 WBC RBC Hgb Hct MCV MCH MCHC RDW Plt Count MPV Immature Gran % Seg Neutrophils % Lymphocytes % Monocytes % Eosinophils % Basophils % Neutrophils # Lymphocytes # Monocytes # Eosinophils # Basophils # Sodium Potassium Chloride Carbon Dioxide BUN Creatinine Est GFR ( Amer) Est GFR (Non-Af Amer) BUN/Creatinine Ratio Glucose POC Glucose 112 H 99 H Calculated Osmolality Calcium Total Bilirubin Direct Bilirubin Indirect Bilirubin AST ALT Alkaline Phosphatase Serum Total Protein Albumin Globulin Albumin/Globulin Ratio - Impressions ITS Impressions Liver Scan Nuclear Medicine 05/12/17 18:55 IMPRESSION: No scintigraphic evidence of biliary obstruction. Decreased gallbladder ejection fraction measuring 19% ; finding which can be seen with biliary dyskinesia. D/ / Manju Hastings Cha, MD / Manju Hastings Cha, MD Interpreting Provider: Manju Hastings Cha, MD
[2017-05-14 11:46] VITALS: BP 111/57
[2017-05-14] MEDS ORDERED: Insulin LISPRO 300 UNITS/3 ML VIAL SQ SCH (12:00)
== END 2017-05-14 14:38 | disposition home or self-care (01) ==
LOC: 3ANU 09:28 → EMEROO 09:28 → 3ANU 18:29
PROVIDERS: ADMIT Surgery; ATTEND Surgery